=== PATIENT | female | born 1960 | race Caucasian/White ===

== ENCOUNTER 2018-01-26 15:04 | Observation (INO) | payer OTHER ==
[2018-01-26 15:13] VITALS: BMI 48.1
--- NOTE | 2018-01-26 15:38 | PDOC ---
History of Present Illness - General Chief Complaint: CVA/TIA Stated Complaint: TIA/CVA Time Seen by Provider: 01/26/18 15:21 - History of Present Illness Initial Comments: 01/26/18 15:33 57 yo F with h/o HTN, HLD, DM, COPD, Gout, Endometrial ca. s/p total hysterectomy 12/2017 who p/w lightheadedness, and slurred speech. Patient referred to ED by provider Heidi Lynn MD from Urgent Care. Patient and patient at bedside report waking up this AM (01/26/18) at approximately 0800 AM with slurred speech and slight left sided facial droop. Patient also endorses "swelling of lower part of face (now resolved)," but denies dysphagia, tongue swelling, rash, vision change, hoarseness, odynophagia. Patient also endorses word finding difficulty this morning,and "head fogginess," now slightly improved. + Dull posterior HART x 24 hours, with slight improvement. Consistent with prior HART's. No identifiable triggers or alleviators. Last known well 01/25/18 ( 1000 PM). BS~116 this AM at 0830. Patient denies N/V, F,C, CP, SOB, urinary complaints, abdominal pain, diarrhea, constipation, lightheadedness, weakness, sensory changes. PMHx: as noted above. Denies h/o CVA/TIA. Denies h/o ACS/CA. Denies AC. ROS: as noted SHx: Denies smoking/tobacco history, IVDA. Allergies: Montelukast, Pramiprexole,Topirimate, Naldecon Past History - Past Medical History Allergies/Adverse Reactions: Allergies Allergy/AdvReac Type Severity Reaction Status Date / Time montelukast sodium Allergy Mild Itching Verified 01/26/18 15:09 [From Singulair] pramipexole [From Mirapex] Allergy Verified 01/26/18 15:10 topiramate [From Topamax] AdvReac Verified 01/26/18 15:10 NALDECON AdvReac Mild NOSE BLEEDS Uncoded 01/26/18 15:09 Home Medications: Ambulatory Orders Lidocaine [Lidoderm] 2 patch TP DAILY PRN 12/24/12 Salmeterol/Fluticasone [Advair 500Mcg/50Mcg -] 1 inh IH BID 12/24/12 Glucosamine HCl/Chondro Duarte A [Glucosamine Chondroitin Cap] 1 tab PO TID Tiotropium [place] [Spiriva -] 1 inh PO DAILY 12/26/12 Albuterol Sulfate [Proventil HFA Inhaler -] 1 - 2 inh PO TID PRN 03/09/15 Amlodipine Besylate 5 mg PO DAILY 03/09/15 Calcium Carb/Vitamin D3/Vit K1 [Calcium + D Soft Chewable Tab] 1 each PO DAILY 03/09/15 Colchicine 0.6 mg PO BID 03/09/15 Estraval PO ASDIR 03/11/15 Amitriptyline HCl [Elavil -] 50 mg PO HS 01/26/18 Doxazosin Mesylate [Cardura -] 4 mg PO DAILY 01/26/18 Theophylline Anhydrous [Ronal-24] 0.5 tab PO DAILY 01/26/18 Anemia: No Asthma: Yes Cancer: No Cardiac Disorders: Yes (MVP) CVA: No COPD: No CHF: No Dementia: No Diabetes: Yes (STATES "YES", ON DIET CONTROLLED) GI Disorders: Yes (GERD 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 No weakness. HEAD, EYES, EARS, NOSE AND THROAT: No change in vision. No ear pain or discharge. No sore throat. CARDIOVASCULAR: No chest pain or shortness of breath RESPIRATORY: No cough, wheezing, or hemoptysis. GASTROINTESTINAL: No nausea, vomiting, diarrhea or constipation. GENITOURINARY: No dysuria, frequency, or change in urination. MUSCULOSKELETAL: No joint or muscle swelling or pain. No neck or back pain. SKIN: No rash NEUROLOGIC: + Slurred speech, headache. No vertigo, loss of consciousness, or change in strength/sensation. ENDOCRINE: No increased thirst. No abnormal weight change HEMATOLOGIC/LYMPHATIC: No anemia, easy bleeding, or history of blood clots. ALLERGIC/IMMUNOLOGIC: No hives or skin allergy. *Physical Exam - Vital Signs Last Vital Signs Temp Pulse Resp BP Pulse Ox 97.8 F 96 H 20 153/95 99 01/26/18 15:12 01/26/18 15:12 01/26/18 15:12 01/26/18 15:12 01/26/18 15:12 - Physical Exam Comments: 01/26/18 15:38 GENERAL: Awake, alert, and fully oriented, in no acute distress HEAD: No signs of trauma, normocephalic, atraumatic EYES: PERRLA, EOMI, sclera anicteric, conjunctiva clear ENT: + Left lateral oral commisure depression. Auricles normal inspection, hearing grossly normal, nares patent, oropharynx clear without exudates. Moist mucosa NECK: Normal ROM, supple, no lymphadenopathy, JVD, or masses LUNGS: No distress, speaks full sentences, clear to auscultation bilaterally HEART: Regular rate and rhythm, normal S1 and S2, no murmurs, rubs or gallops, peripheral pulses normal and equal bilaterally. ABDOMEN: Soft, nontender, normoactive bowel sounds. No guarding, no rebound. No masses EXTREMITIES : Normal inspection, Normal range of motion, no edema. No clubbing or cyanosis. NEUROLOGICAL: Cranial nerves II through XII grossly intact. Normal speech, no focal sensorimotor deficits. SKIN: Warm, Dry, normal turgor, no rashes or lesions noted NIH Stroke Scale - Last Known Well Date/Time & Onset Date Last Known Well: 01/25/18 Time Last Known Well: 10:00 - Initial Evaluation Level of consciousness: Alert Ask patient the month and their age: Answers both correctly Ask patient to open & close eyes; make fist and let go: Obeys both correctly Best gaze (horizontal eye movement): Normal Visual field testing: No visual field loss Facial paresis (Show teeth/raise eyebrows/close eyes tight): Normal symmetrical movement Motor Function: Left Arm: Normal Motor Function: Right Arm: Normal (extends arm 90 (or 45) degrees for 10 seconds without drift Motor Function: Left Leg: Normal (extends leg 30 degrees for 5 seconds without drift) Motor Function: Right Leg: Normal (extends leg 30 degrees for 5 seconds without drift) Limb Ataxia: No ataxia Sensory(Use pinprick test arms,legs,trunk,face/side to side): Normal Best language (Describe picture, name items, read sentences): No Aphasia Dysarthria (read several words): Normal articulation Extinction and Inattention: No abnormality - Total Score NIH Stroke Scale Score: 0 tPA Exclusion checklist 3-4.5h - Time Elapsed Date last known well: 01/25/18 Time last known well: 10:00 Elaspsed time: 1 Day(s) and 8 Hour(s) and 43 Minutes - Thrombolytic Therapy Candidate Is patient eligible for thrombolytic therapy: No - Exclusion Criteria 3-4.5 hr SBP greater than 185 or DBP greater than 110mmHg despite tx: No Recent IC/spinal surgery,head trauma or stroke<3mos.: No Hx IC hemorrhage, IC neoplasm, AV malformation or aneurysm: No Active internal bleeding: No Blding diathesis(low plt ct, inc PTT,INR>1.7 or use of NOAC): No Symptoms suggest subarachnoid hemorrhage: No CT demonstrates multilobar infarct(>1/3 cerebral hemiphere): No Arterial puncture at noncompressible site in previous 7 days: No Blood glucose concentration less than 50mg/dL (2.7mmol/L): No - Relative Exclusion Criteria 3-4.5 hr Life expectancy <1 yr or severe co-morbid illness: No : No Patient/family refused: No Rapid improvement: Yes Stroke severity too mild: Yes Recent acute CA (w/in previous 3 months): No Seizure at onset with postictal residual neuro impairments: No Major surgery or serious trauma w/in previous 14 days: No Recent GI or hemorrhage (w/in previous 21 days): No - Add'l Relative Exclusion 3-4.5 hr Age > 80: No Hx of both diabetes AND prior ischemic stroke: No Taking an oral anticoagulant regardless of INR: No NIHSS >25: No - Ineligibility reason(s) Reasons No tPA given: Outside of window - delayed arrival Critical Care Time/[facility] Note - Medical Decision Making Note: 01/26/18 16:07 57 yo F with h/o HTN, HLD, DM, COPD, Gout, Endometrial ca. s/p total hysterectomy 12/2017 who p/w lightheadedness, and slurred speech. VSS, AF, A& OX3. Slight left oral lateral comissure droop. Neurologic exam otherwise intact. NIHSS~ 0. Outside TpA window. Will evaluate for possible CVA vs.TIA. Will assess for hypoglycemia, electrolyte abnml, metabolic and toxic derangements, acid-base disturbances, infection. ED Course: Stroke Set: CBC, CMP, TG, LA, PT/INR, T&S CTH EKG, CXR 01/26/18 16:39 EKG: NSR with absent SHAHID, STD. Q waves lead V1, V2. Normal axis and interval duration Contacted Neurology answering service. Dr. Hutson. Awaiting call back 01/26/18 16:52 CBC,CMP: Unremarkable UA: Neg Glu~108 01/26/18 17:[address] Hutson, MRI, Carotid dopplers, admit. 01/26/18 18:04 CTH: No acute pathology 01/26/18 18:29 Microblogged [facility] x 2 Patient pending admission stroke/obs. Patient stable 01/26/18 18:[address] endorsed to Medicine Dr[address] Menard. Admit to stroke/obs *DC/Admit/Observation/Transfer Diagnosis at time of Disposition: TIA (transient ischemic attack), Slurred speech - Discharge Dispostion Condition at time of disposition: Stable Decision to Admit order: Yes - Referrals - Patient Instructions Additional Instructions: Please return to the emergency department with any new or worsening symptoms or concerns. Please follow up with your primary care physician within 72 hours. - Post Discharge Activity - Attestations Physician Attestion: 01/26/18 15:39 I attest to the information provided in this note.
[2018-01-26] MEDS: SODIUM CHLORIDE 1,000 ML IV SCH (15:51)
[2018-01-26 16:13] LABS: BASO % 0.4 % (0-2.0); EOS % 2.9 % (0-4.5); HEMATOCRIT 42.2 % (32.4-45.2); HEMOGLOBIN 14.6 GM/dL (10.7-15.3); LYMPH % 29.6 % (8-40); MCH 30.2 pg (25.7-33.7); MCHC 34.7 g/dl (32.0-36.0); MEAN PLT VOLUME 8.5 fl (7.5-11.1); MONO % 7.8 % (3.8-10.2); NEUT % 59.3 % (42.8-82.8); PLATELET COUNT 339 K/MM3 (134-434); RBC 4.86 M/mm3 (3.60-5.2); RDW 14.1 % (11.6-15.6); WHITE BLOOD COUNT 8.7 K/mm3 (4.0-10.0)
[2018-01-26 16:29] LABS: INR 0.87 (0.83-1.09); PROTHROMBIN TIME (PATIENT) 10.2 SEC (9.7-13.0)
[2018-01-26 16:32] LABS: URINE APPEARANCE CLEAR; URINE BILIRUBIN NEGATIVE (<2.0 mg/dL); URINE COLOR LTYELLOW; URINE GLUCOSE (UA) NEGATIVE (NEGATIVE); URINE KETONE NEGATIVE (NEGATIVE); URINE LEUK ESTERASE NEGATIVE (NEGATIVE); URINE NITRITE NEGATIVE (NEGATIVE); URINE PROTEIN NEGATIVE (NEGATIVE); URINE UROBILINOGEN NEGATIVE mg/dL (0.2-1.0)
[2018-01-26 16:41] LABS: ALBUMIN 4.3 g/dl (3.4-5.0); ALK PHOS 103 U/L (45-117); ANION GAP 8 MMOL/L (8-16); BILIRUBIN,TOTAL 0.3 mg/dL (0.2-1); BLOOD UREA NITROGEN 17 mg/dL (7-18); CALCIUM 9.4 mg/dL (8.5-10.1); CHLORIDE 102 mmol/L (98-107); CHOLESTEROL 210 mg/dL (50-200); CO2 28 mmol/L (21-32); GLUCOSE,RANDOM 108 mg/dL (74-106); HDL CHOLESTEROL 67 mg/dL (40-60); POTASSIUM 3.9 mmol/L (3.5-5.1); SGOT/AST 16 U/L (15-37); SGPT/ALT 27 U/L (13-61); SODIUM 138 mmol/L (136-145); TOT PROT 7.9 g/dl (6.4-8.2); TRIGLYCERIDES 192 mg/dL (0-150)
--- NOTE | 2018-01-26 17:54 | PDOC ---
Attending Attestation - Resident Resident Name: Kimani Benjamin - ED Attending Attestation I have performed the following: I have examined & evaluated the patient, The case was reviewed & discussed with the resident, I agree w/resident's findings & plan, Exceptions are as noted - HPI HPI: 01/26/18 17:51 57 yo F with h/o HTN, HLD, DM, COPD, Gout, Endometrial ca. s/p total hysterectomy 12/2017 presenting with L facial droop and slurred speech upon awakening today. Pt was in [facility] last night going to bed. This morning, pt found her L face drooped and "feeling swollen". Pt also reports word finding difficulty and slurred speech. Her symptoms gradually subsided and resolved by the time pt came to ED. Pt now with no complaints other than "feeling foggy". - Physicial Exam PE: 01/26/18 17:53 "GENERAL: Awake, alert, and fully oriented, in no acute distress. HEAD: No signs of trauma EYES: PERRLA, EOMI, sclera anicteric, conjunctiva clear ENT: Auricles normal inspection, hearing grossly normal, nares patent, oropharynx clear without exudates. Moist mucosa NECK: Nontender, no stepoffs, Normal ROM, supple, no lymphadenopathy, JVD, or masses LUNGS: Breath sounds equal, clear to auscultation bilaterally. No wheezes, and no crackles HEART: Regular rate and rhythm, normal S1 and S2, no murmurs, rubs or gallops ABDOMEN: Soft, nontender, normoactive bowel sounds. No guarding, no rebound. No masses EXTREMITIES: Normal range of motion, no edema. No clubbing or cyanosis. No cords, erythema, or tenderness NEUROLOGICAL: Cranial nerves II through XII intact. 5/5 strength and sensation in all extremities, Normal speech, normal gait, normal cerebellar function SKIN: Warm, Dry, normal turgor, no rashes or lesions noted. - Medical Decision Making 01/26/18 17:54 57 F with L facial droop and slurred speech today, now resolved. Pt with no deficits on exam currently. Possible TIA. - Labs - CT head - Neuro c/s NIH Stroke Scale - Last Known Well Date/Time & Onset Date Last Known Well: 01/25/18 Time Last Known Well: 22:00 - Initial Evaluation Level of consciousness: Alert Ask patient the month and their age: Answers both correctly Ask patient to open & close eyes; make fist and let go: Obeys both correctly Best gaze (horizontal eye movement): Normal Visual field testing: No visual field loss Facial paresis (Show teeth/raise eyebrows/close eyes tight): Normal symmetrical movement Motor Function: Left Arm: Normal Motor Function: Right Arm: Normal (extends arm 90 (or 45) degrees for 10 seconds without drift Motor Function: Left Leg: Normal (extends leg 30 degrees for 5 seconds without drift) Motor Function: Right Leg: Normal (extends leg 30 degrees for 5 seconds without drift) Limb Ataxia: No ataxia Sensory(Use pinprick test arms,legs,trunk,face/side to side): Normal Best language (Describe picture, name items, read sentences): No Aphasia Dysarthria (read several words): Normal articulation Extinction and Inattention: No abnormality - Total Score NIH Stroke Scale Score: 0
--- NOTE | 2018-01-26 19:18 | PN ---
Teaching Attending Note Name of Resident: Mackenzie Holland ATTENDING PHYSICIAN STATEMENT I saw and evaluated the patient. I reviewed the resident's note and discussed the case with the resident. I agree with the resident's findings and plan as documented. SUBJECTIVE: Patient is a 57 year old woman with history of HTN, HLD, diet-controlled DM, COPD, Gout and Endometrial cancer (s/p total hysterectomy 12/2017) who presents with lightheadedness and slurred speech. Patient referred to ER by provider Heidi Lynn MD from Urgent Care. Patient reports waking up this AM (01/26/18 ) at approximately 0800 AM with slurred speech and slight left sided facial droop. Patient also has "swelling of lower part of face (now resolved)," but denies dysphagia, tongue swelling, rash, vision change, hoarseness, odynophagia. Patient also had word finding difficulty this morning,and "head fogginess," now slightly improved. Has dull posterior headache x 24 hours, with slight improvement. Consistent with prior HART's. No identifiable triggers or alleviators. Last known well 01/25/18 (1000 PM). BS~116 this AM at 0830. OBJECTIVE: Alert Vital Signs Period Temp Pulse Resp BP Sys/Rodgers Pulse Ox Last 24 Hr 97.8 F 96 20 153/95 98-99 HEENT: No Jaundice, eye redness or discharge, PERRLA, EOMI. Left facial droop. Normocephalic, atraumatic. External ears are normal and hearing is grossly intact. No nasal discharge. Neck: Supple, nontender. No palpable adenopathy or thyromegaly. No JVD Chest: Good effort. Clear to auscultation and percussion. Heart: Regular. No S3, rub or murmur Abdomen: Not distended, soft, nontender and no HSM. No rebound or guarding. Normoactive bowel sounds. Ext: Peripheral pulses intact. No leg edema. Skin: Warm and dry. No petechiae, rash or ecchymosis. Neuro: Alert. Oriented x3. CN 2-12 grossly intact. Left facial droop. Unsteady gait (patient says its chronic - uses 2 canes to ambulate at home). Sensation grossly intact in all four extremities and DTR are symmetric. Current Medications Generic Name Dose Route Start Last Admin Trade Name Freq PRN Reason Stop Dose Admin Sodium Chloride 1,000 mls @ 42 mls/hr 01/26/18 15:45 01/26/18 15:51 Normal Saline - IV 42 mls/hr ASDIR KASSIE Administration Home Medications Medication Instructions Recorded Lidocaine [Lidoderm] 2 patch TP DAILY PRN 12/24/12 Salmeterol/Fluticasone [Advair 1 inh IH BID 12/24/12 500Mcg/50Mcg -] Glucosamine HCl/Chondro Duarte A 1 tab PO TID 12/26/12 [Glucosamine Chondroitin Cap] Tiotropium [place] [Spiriva -] 1 inh PO DAILY 12/26/12 Albuterol Sulfate [Proventil HFA 1 - 2 inh PO TID PRN 03/09/15 Inhaler -] Amlodipine Besylate 5 mg PO DAILY 03/09/15 Calcium Carb/Vitamin D3/Vit K1 1 each PO DAILY 03/09/15 [Calcium + D Soft Chewable Tab] Colchicine 0.6 mg PO BID 03/09/15 Amitriptyline HCl [Elavil -] 50 mg PO HS 01/26/18 Doxazosin Mesylate [Cardura -] 4 mg PO DAILY 01/26/18 Theophylline Anhydrous [Ronal-24] 0.5 tab PO DAILY 01/26/18 Abnormal Lab Results 01/26/18 15:44 Random Glucose 108 H Triglycerides 192 H Cholesterol 210 H Total LDL Cholesterol 120 H HDL Cholesterol 67 H ASSESSMENT AND PLAN: 1. TIA/? CVA - Head CT scan does not show any acute CVA. She is outside the window for TPa. Will get MRI with contrast, carotid doppler and ECHO. EKG shows NSR. Will get speech/swallow evaluation, implement fall and aspiration precuations, neurochecks, admit to telemetry and PT/Neurology consults. Will give Lipitor and Aspirin. Unclear why she stopped taking her statin drug. Adopt permissive hypertension and check uric acid level. 2. Diet controlled DM - Will check HbA1c and implement sliding scale insulin regimen. Provide comprehensive diabetes care with patient teaching and counseling about the importance of euglycemia, eye care and foot care. 3. Obesity - Will provide patient all the necessary assistance , counseling and positive reinforcement to facilitate weight loss. Consult credit cashier. 4. DVT prophylaxis - Lovenox 40 mg SQ q 12 hours. 5. Advance directives - Full code
[2018-01-26] MEDS ORDERED: ASPIRIN 325 MG TABLET ONE (20:52)
--- NOTE | 2018-01-26 21:07 | HP ---
CHIEF COMPLAINT: "Not feeling like myself" [facility] Pulm: Isabelle ([facility]) Cardio: Ismael ([facility]) Oncologist: Igor Richardson ([facility]) Hvac Designer: Corby ([facility]) HISTORY OF PRESENT ILLNESS: 57 y/o F with PMHx of HTN, HLD, DM, COPD, Asthma, Gout, MVP, GERD, Fibromyalgia , Sciatica, Endometrial Cancer presents to [facility] from Urgent Care after experiencing Slurred Speech. Patient experienced a headache throughtout the day yesterday (01/25) that she said was similar to her Cluster Migraines. She described this headache as a 5/10, dull ache that did not radiate anywhere and worsened with Light. Patient tried Tylenol and went about her day. This morning , patient video chatted with her brother who noticed her face was swollen and some slurred speech. Patient says all day today she did not feel right, and felt she was doing everything in slow motion. At 1pm today (01/26), Patients also noticed the slurred speech and convinced patient to visit the Urgent care. At 3pm, the Urgent care physician (Heidi Lynn MD) noticed a facial droop and suggested she visit the ED. Patient has a hx of numbness and tingling she says is due to multiple herniated discs + diabetic neuropathy. She also endorses multiple falls due to an unsteady gait however denies any recent head trauma. Denies any recent fevers, chills, chest pain, SOB, nausea, vomiting, diarrhea, constipatin. ER course was notable for: (1) Neurology Consult (2) CT Head, EKG (3) NIHSS: 0 Recent Travel: Denies PAST MEDICAL HISTORY: HTN, HLD, DM (Diet controlled) COPD, Asthma, Gout, MVP, GERD, Fibromyalgia, Sciatica, Endometrial Cancer, Cluster Migraines PAST SURGICAL HISTORY: Endometrial Cancer s/p Total Hysterectomy (12/2017) Rotator Cuff (03/19) Torn R Meniscus (12/14) () Social History: Smoking: Denies Alcohol: Denies Drugs: Denies Occupation: None Residence: Home with Ambulation: Canes b/l Family History: Mother: Multiple TIAs, Breast Ca + Double Mastectomy, Lung Ca, CHF Father: Dementia, HTN Allergies montelukast sodium [From Singulair] Allergy (Mild, Verified 01/26/18 15:09) Itching pramipexole [From Mirapex] Allergy (Verified 01/26/18 15:10) topiramate [From Topamax] Adverse Reaction (Verified 01/26/18 15:10) NALDECON Adverse Reaction (Mild, Uncoded 01/26/18 15:09) NOSE BLEEDS HOME MEDICATIONS: Salmeterol/Fluticasone [Advair 500Mcg/50Mcg -] 1 inh IH BID 12/24/12 Tiotropium [place] [Spiriva -] 1 inh PO DAILY 12/26/12 Amlodipine Besylate 10 mg PO DAILY 03/09/15 Colchicine 0.6 mg PO BID 03/09/15 Amitriptyline HCl [Elavil -] 50 mg PO HS 01/26/18 Diclofenac Sodium 100 gm TP PRN PRN 01/26/18 Doxazosin Mesylate [Cardura -] 2 mg PO DAILY 01/26/18 Multivitamins [Tab-A-Vit -] 1 tab PO DAILY 01/26/18 Nitroglycerin [Nitrostat] 0.4 mg SL PRN PRN 01/26/18 Theophylline Anhydrous [Ronal-24] 0.5 tab PO BID 01/26/18 REVIEW OF SYSTEMS As per HPI PHYSICAL EXAMINATION Vital Signs - 24 hr 01/26/18 01/26/18 15:12 15:40 Temperature 97.8 F Pulse Rate 96 H Respiratory 20 Rate Blood Pressure 153/95 O2 Sat by Pulse 99 98 Oximetry (%) GENERAL: A&Ox3, NAD, sitting with HOB elevated HEAD: NCAT EYES: PERRL, EOMI, Wearing glasses EARS, NOSE, THROAT: Oropharynx clear without exudates. MMM NECK: No JVD LUNGS: CTAB, No wheezes and no crackles HEART: Regular rate and rhythm, normal S1 and S2 without murmur ABDOMEN: Obese, Soft, Tender to palpation in LUQ, not distended, + bowel sounds , 5 healing incision wounds in the mid-abdomen without active bleeding/drainage. UPPER EXTREMITIES: 2+ pulses, Scratch enamorado over the Left Medial Forearm (From [place]) LOWER EXTREMITIES: 2+ pulses, 1+ Nonpitting edema. NEUROLOGICAL: Cranial nerves II-XII intact however slight Left Facial droop. Normal speech. C5-T1 and L4-S1 gross sensation intact. 4/5 muscle strength to handgrip, Elbow flexion/extension, shoulder abduction, Hip Flexion, Knee flexion /extension, Plantarflexion, dorsiflexion. Slow but Unsteady gait. Able to perform rapid alternating hand movements, Heel to hong, and Finger to nose. PSYCHIATRIC: Cooperative. Good eye contact. Appropriate mood and affect. SKIN: Warm, dry Laboratory Results - last 24 hr 01/26/18 01/26/18 01/26/18 15:44 15:44 15:44 WBC 8.7 RBC 4.86 Hgb 14.6 Hct 42.2 MCV 87.0 MCH 30.2 MCHC 34.7 RDW 14.1 Plt Count 339 MPV 8.5 Absolute Neuts (auto) 5.2 Neutrophils % 59.3 Lymphocytes % 29.6 Monocytes % 7.8 Eosinophils % 2.9 Basophils % 0.4 Nucleated RBC % 0 PT with INR 10.20 INR 0.87 Sodium 138 Potassium 3.9 Chloride 102 Carbon Dioxide 28 Anion Gap 8 BUN 17 Creatinine 1.0 Creat Clearance w eGFR 57.15 Random Glucose 108 H Calcium 9.4 Total Bilirubin 0.3 AST 16 ALT 27 Alkaline Phosphatase 103 Creatine Kinase 78 Troponin I < 0.02 Total Protein 7.9 Albumin 4.3 Triglycerides 192 H Cholesterol 210 H Total LDL Cholesterol 120 H HDL Cholesterol 67 H Urine Color Urine Appearance Urine pH Ur Specific [place] Urine Protein Urine Glucose (UA) Urine Ketones Urine Blood Urine Nitrite Urine Bilirubin Urine Urobilinogen Ur Leukocyte Esterase Blood Type Antibody Screen 01/26/18 01/26/18 15:44 16:20 WBC RBC Hgb Hct MCV MCH MCHC RDW Plt Count MPV Absolute Neuts (auto) Neutrophils % Lymphocytes % Monocytes % Eosinophils % Basophils % Nucleated RBC % PT with INR INR Sodium Potassium Chloride Carbon Dioxide Anion Gap BUN Creatinine Creat Clearance w eGFR Random Glucose Calcium Total Bilirubin AST ALT Alkaline Phosphatase Creatine Kinase Troponin I Total Protein Albumin Triglycerides Cholesterol Total LDL Cholesterol HDL Cholesterol Urine Color Ltyellow Urine Appearance Clear Urine pH 6.0 Ur Specific Mobile 1.014 Urine Protein Negative Urine Glucose (UA) Negative Urine Ketones Negative Urine Blood Negative Urine Nitrite Negative Urine Bilirubin Negative Urine Urobilinogen Negative Ur Leukocyte Esterase Negative Blood Type A POSITIVE Antibody Screen Negative Active Medications Aspirin (Ecotrin -) 325 mg PO DAILY [facility] Last Admin: 01/26/18 21:20 Dose: 325 mg Enoxaparin Sodium (Lovenox -) 40 mg SQ DAILY [facility] Sodium Chloride (Normal Saline -) 1,000 mls @ 42 mls/hr IV ASDIR [facility] Last Admin: 01/26/18 15:51 Dose: 42 mls/hr Insulin Aspart (Novolog Vial Sliding Scale -) 1 vial SQ ACHS [facility]; Protocol Rosuvastatin Calcium (Crestor -) 40 mg PO HS [facility] Last Admin: 01/26/18 21:20 Dose: 40 mg ASSESSMENT/PLAN: 57 y/o F with PMHx of HTN, DM, COPD, MVP, Fibromyalgia, Endometrial Cancer presents to [facility] after experiencing Slurred Speech, Left sided facial droop and will be observed on Tele-Obs. #R/O TIA -Outside window for tPA -Head CT pending official Read -ECHO, Carotid Doppler, MRI Brain with contrast ordered -Neurology (Dr. Hutson) consulted by ED -Speech and Swallow consulted -ASA 325mg -Crestor 40mg HS -HOB Elevated -Neurochecks Q2H -Fall precautions -Dysphagia precautions #HTN -Hold Home dose Amlodipine, Doxazosin, Nitro -Will allow permissive HTN at this time #HLD -Lipid panel noted above -Crestor #DM -Patient mentions Diet controlled at home -Will Monitor with BGMs ISS ACHS for now, Can d/c if BG at goal #COPD -Stable -Home dose Advair, Spiriva, Ronal-24 #Gout -Stable -Home dose Colchicine #Fibromyalgia -Home dose Amitriptyline #FEN -PO Fluids -Lytes wnl -NPO pending speech and swallow eval #PPx -DVT: Lovenox Dispo: Tele-Obs; Meds have been reconciled Visit type - Emergency Visit Emergency Visit: Yes ED Registration Date: 01/26/18 Care time: The patient presented to the Emergency Department on the above date and was hospitalized for further evaluation of their emergent condition. - New Patient This patient is new to me today: Yes Date on this admission: 01/27/18 - Critical Care Critical Care patient: No
[2018-01-26] MEDS: ASPIRIN 325 MG ENTERIC COATED TABLET (FP) PO SCH (21:20)
[2018-01-26] MEDS: ROSUVASTATIN CA 20 MG TABLET (FP) PO SCH (21:20)
[2018-01-26] MEDS ORDERED: ROSUVASTATIN CA 40 MG TABLET PO SCH (22:00)
[2018-01-26] MEDS ORDERED: THEOPHYLLINE ANHYDROUS PO SCH (22:00)
[2018-01-26] MEDS ORDERED: COLCHICINE 0.6 MG TABLET (FP) ONE (23:03)
[2018-01-26] MEDS: COLCHICINE 0.6 MG TABLET (FP) PO SCH (23:05)
[2018-01-26] MEDS: AMITRIPTYLINE HCL 25 MG TABLET (FP) PO SCH (23:05)
[2018-01-26] MEDS: INSULIN SLIDING SCALE (NOVOLOG) 1 VIAL SQ SCH (23:12)
[2018-01-27 06:39] LABS: BASO % 0.6 % (0-2.0); EOS % 3.6 % (0-4.5); HEMATOCRIT 40.6 % (32.4-45.2); HEMOGLOBIN 13.4 GM/dL (10.7-15.3); LYMPH % 41.4 % (8-40); MCH 28.7 pg (25.7-33.7); MCHC 32.9 g/dl (32.0-36.0); MEAN CELL VOLUME 87.3 fl (80-96); MEAN PLT VOLUME 8.3 fl (7.5-11.1); MONO % 8.2 % (3.8-10.2); NEUT % 46.2 % (42.8-82.8); PLATELET COUNT 279 K/MM3 (134-434); RBC 4.66 M/mm3 (3.60-5.2); RDW 14.4 % (11.6-15.6); WHITE BLOOD COUNT 6.6 K/mm3 (4.0-10.0)
[2018-01-27 07:49] LABS: ALBUMIN 3.4 g/dl (3.4-5.0); ALK PHOS 85 U/L (45-117); ANION GAP 9 MMOL/L (8-16); BILIRUBIN,TOTAL 0.6 mg/dL (0.2-1); BLOOD UREA NITROGEN 13 mg/dL (7-18); CALCIUM 8.6 mg/dL (8.5-10.1); CHLORIDE 108 mmol/L (98-107); CO2 26 mmol/L (21-32); CREATININE 0.9 mg/dL (0.55-1.3); GLUCOSE,RANDOM 97 mg/dL (74-106); MAGNESIUM 2.4 mg/dL (1.8-2.4); PHOSPHOROUS 4.6 mg/dL (2.5-4.9); POTASSIUM 3.8 mmol/L (3.5-5.1); SGOT/AST 15 U/L (15-37); SGPT/ALT 23 U/L (13-61); SODIUM 143 mmol/L (136-145); TOT PROT 6.4 g/dl (6.4-8.2)
[2018-01-27] MEDS: INSULIN SLIDING SCALE (NOVOLOG) 1 VIAL SQ SCH ×4 (07:59→21:58)
[2018-01-27] MEDS ORDERED: PT OWN MED DRAWER 7, Y5N ONE ×3 (09:53→22:37)
[2018-01-27] MEDS: BUDESONIDE/FORMETEROL FUMARATE 160/4.5 mcg INHALER IH SCH ×3 (10:07→21:58)
[2018-01-27] MEDS: TIOTROPIUM BROMIDE 2.5 MCG (SPIRIVA) RESPIMAT INHALER IH SCH (10:09)
[2018-01-27] MEDS: ASPIRIN 325 MG ENTERIC COATED TABLET (FP) PO SCH (10:12)
[2018-01-27] MEDS: MULTIVITAMINS (DAILY MVI) TABLET (FP) PO SCH (10:12)
[2018-01-27] MEDS: ENOXAPARIN NA (PORCINE) 40 MG/0.4 ML DISP.SYRIN SQ SCH (10:12)
[2018-01-27] MEDS: COLCHICINE 0.6 MG TABLET (FP) PO SCH ×2 (10:12→21:58)
--- NOTE | 2018-01-27 10:56 | EKG ---
Test Reason : Blood Pressure : / mmHG Vent. Rate : 090 BPM Atrial Rate : 090 BPM P-R Int : 182 ms QRS Dur : 090 ms QT Int : 356 ms P-R-T Axes : 044 035 054 degrees QTc Int : 435 ms NORMAL SINUS RHYTHM SEPTAL INFARCT , AGE UNDETERMINED ABNORMAL ECG NO PREVIOUS ECGS AVAILABLE Confirmed by FANTA REYES MD ([id number]) on 01/27/2018 10:56:24 AM Referred By: Confirmed By:FANTA REYES MD
--- NOTE | 2018-01-27 12:30 | ECHO ---
Name: KATIE LUCERO, TACHO Exam:Adult Echocardiogram Study Date: 01/27/2018 11:43 AM Age: 57 yrs Reason For Study: ALEJANDRO/OLIVIER Height: 62 in Weight: 263 lb BSA: 2.1 m2 MMode/2D Measurements & Calculations IVSd: 0.83 cm LA dimension: 3.0 cm LVIDd: 4.6 cm LVIDs: 3.3 cm LVPWd: 0.77 cm EDV(Teich): 99.2 ml ESV(Teich): 44.1 ml Doppler Measurements & Calculations MV E max deangelo: 5.6 cm/sec MV A max deangelo: 5.4 cm/sec MV E/A: 1.0 MV dec time: 0.20 sec Procedure A complete two-dimensional transthoracic echocardiogram was performed (2D, M-mode, Doppler and color flow Doppler). Technically limited study. Left Ventricle The left ventricle is normal in size. Left ventricular systolic function is normal. Ejection Fraction = 60- 65%. No regional wall motion abnormalities noted. Right Ventricle The right ventricle is not well visualized. Atria The left atrial size is normal. Right atrial size is normal. Mitral Valve The mitral valve is normal in structure and function. There is trace to mild mitral regurgitation. Tricuspid Valve The tricuspid valve is normal in structure and function. No tricuspid regurgitation. Aortic Valve The aortic valve is normal in structure and function. No aortic regurgitation is present. Pulmonic Valve The pulmonic valve is not well visualized. Great Vessels The aortic root is normal size. Pericardium/Pleura There is no pericardial effusion. Interpretation Summary Technically limited study The left ventricle is normal in size. Left ventricular systolic function is normal. No regional wall motion abnormalities noted. Ejection Fraction = 60-65%. The right ventricle is not well visualized. The left atrial size is normal. Right atrial size is normal. There is trace to mild mitral regurgitation. There is no pericardial effusion. Previous study is not available for comparison Luis Manuel Santos MD 01/27/2018 12:30 PM
--- NOTE | 2018-01-27 13:54 | CONSULT ---
Admitting History and Physical - Primary Care Physician PCP: Abby Hogan - Admission History of Present Illness: Per EMR: HISTORY OF PRESENT ILLNESS: 57 y/o F with PMHx of HTN, HLD, DM, COPD, Asthma, Gout, MVP, GERD, Fibromyalgia , Sciatica, Endometrial Cancer presents to [facility] from Urgent Care after experiencing Slurred Speech. Patient experienced a headache throughtout the day yesterday (01/25) that she said was similar to her Cluster Migraines. She described this headache as a 5/10, dull ache that did not radiate anywhere and worsened with Light. Patient tried Tylenol and went about her day. This morning , patient video chatted with her brother who noticed her face was swollen and some slurred speech. Patient says all day today she did not feel right, and felt she was doing everything in slow motion. At 1pm today (01/26), Patients also noticed the slurred speech and convinced patient to visit the Urgent care. At 3pm, the Urgent care physician (Heidi Lynn MD) noticed a facial droop and suggested she visit the ED. Patient has a hx of numbness and tingling she says is due to multiple herniated discs + diabetic neuropathy. She also endorses multiple falls due to an unsteady gait however denies any recent head trauma. Denies any recent fevers, chills, chest pain, SOB, nausea, vomiting, diarrhea, constipatin. Head CT/ Carotid u/s (-) Selected Entries 01/27/18 01/27/18 01/27/18 00:32 04:00 08:00 Lunch Temperature 98.3 F 98.1 F 97.5 F L 01/27/18 13:28 Lunch 100% Temperature Laboratory Tests 01/27/18 06:00 WBC 6.6 Pt reports feeling "more scattered" recently. A lot of stress in her life, medically, financially, and 9 deaths in her family. History Source: Patient, Medical Record Limitations to Obtaining History: No Limitations - Smoking History Smoking history: Never smoked Have you smoked in the past 12 months: No - Alcohol/Substance Use Hx Alcohol Use: No History - Admission Reason For Visit: SLURRED VISION,TRANSIENT ISCHEMIC ATTACK - Diagnostics X-ray: Report Reviewed CT Scan: Report Reviewed MRI: Pending - General Mental Status: Alert and Oriented, Awake and Alert, Able to Follow Commands Attention: Distractible, Mild Impairment Ability to Follow Directions: Excellent (when attending, follows 2 stage complex commands. But doesnt always focus, and asks for repetition.) Head/Neck Control: WFL - Hearing Hearing: Functional Hearing Aide: No With Patient: No Speech Evaluation - Communication Primary Language: TURKMEN Communication: Yes: Within Normal Limits Oral Expression Ability: Yes: No Impairment - Speech Production Able to Make Needs Known: Yes: WNL Intelligibility: Yes: WNL - Speech Characteristics Voice Loudness: Normal Voice Pitch: Yes: Normal Voice Phonatory-based Quality: Yes: Normal Speech Pattern: Normal Speech Clarity: < 100% Nasal Resonance: Normal Articulation: Yes: Precise (slight imprecision? Left facial. Tongue maybe slight deviation to left?) Rate of Speech: Intact - Language/Auditory Comprehension Follows: Yes: Complex Commands Observation: Able to respond to yes/no queries: Yes, Comprehends Conversational Speech: Yes, Benefits from Slow Speech: Yes, Benefits from Repetiton: Yes, Benefits from Increased Volume of Speech: Yes (maybe) - Language/Verbal Expression Able to Respond to Simple Queries: Yes: WNL Able to Communicate Wants and Needs: Yes: WNL Functional Communication Status: Yes: WNL - Memory/Perception FCI Memory: Yes: WNL Short Term Memory: Yes: WNL - Swallow Evaluation/Bedside Assessment Current Nutritional Intake: Regular, Thin Liquids Dentition: Yes: Adequate Facial Symmetry at Rest: Facial Droop Left Facial Movement: Controlled Jaw Position: Closed at Rest Against Resistance Opening: Normal Against Resistance Closing: Normal Pucker Lips: Normal Smile: Droops Left Lingual Movement: Deviates Left (slight??) Lingual Speed of Movement: Normal Lingual Movement Strgth Against Opposition: Reduced (slight?) Lingual Movement Characteristics: Normal Velopharyngeal Movement: Normal Laryngeal Elevation: WFL Laryngeal Movement: Able to Palpate Rate of Intake: WFL Bolus Size: WFL Labial Seal: WFL Chewing: WFL Oral Prep Time: WFL A-P Transit: WFL Pocketing: None Timing of Swallow: WFL Coughing/Throat Clear: No Change in Voice: No Recommendations - Speech Evaluation, Impression/Plan Impression: Left facial. Mild distractibility. Seems intact cognitively. Pt dealing with a lot of stress in her life over last 2 yrs. - Dysphagia Impressions/Plan Swallowing Skills: WFL Dysphagia Impressions: No Impairment *Silent aspiration: cannot be R/O at bedside Recommendations: Neuro Consult (pending) - Recommendations Diet Consistency: Regular Medication Administration: Whole with water Liquids: Thin Liquids
[2018-01-27] MEDS: SODIUM CHLORIDE 1,000 ML IV SCH (16:26)
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
--- NOTE | 2018-01-27 20:23 | PN ---
Teaching Attending Note Name of Resident: Rod Lang ATTENDING PHYSICIAN STATEMENT I saw and evaluated the patient. I reviewed the resident's note and discussed the case with the resident. I agree with the resident's findings and plan as documented. SUBJECTIVE: This patient is a 57 yo with PMHx of HTN, DM, Chol, asthma/COPD and gout is s/p ROSEANNE-BSO for endometrial Ca. Presented with facial numbness and swelling of her face, came to Ed. for further care. As per patient had a headache all day Saturday and woke up with persistent left sided headaches and developed slurred speech, a cloudy feeling in her head, and facial numbness and swelling that persisted for 3-4 hours and resolved with the headache. Patient denies having any headache or fever at this time, no further numbness or tingling. back to her baseline. OBJECTIVE: Vital Signs Temperature 98.2 F 01/27/18 16:35 Pulse Rate 85 01/27/18 16:35 Respiratory Rate 18 01/27/18 17:00 Blood Pressure 135/79 01/27/18 16:35 O2 Sat by Pulse Oximetry (%) 98 01/27/18 17:00 GENERAL: The patient is awake, alert, and fully oriented, in no acute distress. HEAD: Normal with no signs of trauma. EYES: PERRL, extraocular movements intact, sclera anicteric, conjunctiva clear. No ptosis. ENT: Ears normal, nares patent, oropharynx clear without exudates, moist mucous membranes. NECK: Trachea midline, full range of motion, supple. LUNGS: Breath sounds equal, clear to auscultation bilaterally, no wheezes, no crackles, no accessory muscle use. HEART: Regular rate and rhythm, S1, S2 without murmur ABDOMEN: Soft, mild abdominal tenderness , supraumbilical hernia, surgical scars present from laproscopic procedure, normoactive bowel sounds EXTREMITIES: 2+ dorsal pedal pulses, no calf tenderness, warm, well-perfused, no edema. NEUROLOGICAL: Cranial nerves II through XII grossly intact. Normal speech, gait not observed. PSYCH: Normal mood, normal affect. SKIN: Warm, dry, normal turgor CBCD WBC 6.6 K/mm3 (4.0-10.0) 01/27/18 06:00 RBC 4.66 M/mm3 (3.60-5.2) 01/27/18 06:00 Hgb 13.4 GM/dL (10.7-15.3) 01/27/18 06:00 Hct 40.6 % (32.4-45.2) 01/27/18 06:00 MCV 87.3 fl (80-96) 01/27/18 06:00 MCHC 32.9 g/dl (32.0-36.0) 01/27/18 06:00 RDW 14.4 % (11.6-15.6) 01/27/18 06:00 Plt Count 279 K/MM3 (134-434) 01/27/18 06:00 MPV 8.3 fl (7.5-11.1) 01/27/18 06:00 CMP Sodium 143 mmol/L (136-145) 01/27/18 06:00 Potassium 3.8 mmol/L (3.5-5.1) 01/27/18 06:00 Chloride 108 mmol/L (98-107) H 01/27/18 06:00 Carbon Dioxide 26 mmol/L (21-32) 01/27/18 06:00 Anion Gap 9 MMOL/L (8-16) 01/27/18 06:00 BUN 13 mg/dL (7-18) 01/27/18 06:00 Creatinine 0.9 mg/dL (0.55-1.3) 01/27/18 06:00 Creat Clearance w eGFR > 60 (>60) 01/27/18 06:00 Random Glucose 97 mg/dL (74-106) 01/27/18 06:00 Calcium 8.6 mg/dL (8.5-10.1) 01/27/18 06:00 Total Bilirubin 0.6 mg/dL (0.2-1) 01/27/18 06:00 AST 15 U/L (15-37) 01/27/18 06:00 ALT 23 U/L (13-61) 01/27/18 06:00 Alkaline Phosphatase 85 U/L (45-117) 01/27/18 06:00 Total Protein 6.4 g/dl (6.4-8.2) 01/27/18 06:00 Albumin 3.4 g/dl (3.4-5.0) 01/27/18 06:00 CARDIAC ENZYMES Creatine Kinase 78 IU/L (26-192) 01/26/18 15:44 Troponin I < 0.02 ng/ml (0.00-0.05) 01/26/18 15:44 Current Medications Generic Name Dose Route Start Last Admin Trade Name Ajay PRN Reason Stop Dose Admin Amitriptyline HCl 50 mg 01/26/18 22:00 01/26/18 23:05 Elavil - PO 50 mg HS KASSIE Administration Aspirin 325 mg 01/26/18 20:45 01/27/18 10:12 Ecotrin - PO 325 mg DAILY KASSIE Administration Budesonide/Formoterol Fumarate 2 puff 01/26/18 22:00 01/27/18 10:07 Symbicort 160/4.5mcg - IH 2 puff BID KASSIE Administration Colchicine 0.6 mg 01/26/18 22:00 01/27/18 10:12 Colcrys - PO 0.6 mg BID KASSIE Administration Enoxaparin Sodium 40 mg 01/27/18 10:00 01/27/18 10:12 Lovenox - SQ 40 mg DAILY KASSIE Administration Sodium Chloride 1,000 mls @ 42 mls/hr 01/26/18 15:45 01/27/18 16:26 Normal Saline - IV Not Given ASDIR [facility] Insulin Aspart 1 vial 01/26/18 22:00 01/27/18 16:26 Novolog Vial Sliding Scale - SQ Not Given ACHS [facility] Protocol Multivitamins/Minerals/Vitamin C 1 tab 01/27/18 10:00 01/27/18 10:12 Tab-A-Vit - PO 1 tab DAILY KASSIE Administration Non-Formulary Medication 0.5 tab 01/26/18 22:00 Theophylline Anhydrous [Ronal-24] PO BID KASSIE Rosuvastatin Calcium 40 mg 01/26/18 22:00 01/26/18 21:20 Crestor - PO 40 mg HS KASSIE Administration Tiotropium [place] 2 puff 01/27/18 10:00 01/27/18 10:09 Spiriva Respimat IH 2 puff DAILY KASSIE Administration Home Medications Medication Instructions Recorded Salmeterol/Fluticasone [Advair 1 inh IH BID 12/24/12 500Mcg/50Mcg -] Tiotropium [place] [Spiriva -] 1 inh PO DAILY 12/26/12 Amlodipine Besylate 10 mg PO DAILY 03/09/15 Colchicine 0.6 mg PO BID 03/09/15 Amitriptyline HCl [Elavil -] 50 mg PO HS 01/26/18 Diclofenac Sodium 100 gm TP PRN PRN 01/26/18 Doxazosin Mesylate [Cardura -] 2 mg PO DAILY 01/26/18 Multivitamins [Tab-A-Vit -] 1 tab PO DAILY 01/26/18 Nitroglycerin [Nitrostat] 0.4 mg SL PRN PRN 01/26/18 Theophylline Anhydrous [Ronal-24] 0.5 tab PO BID 01/26/18 Lidocaine 5% Patch [Lidoderm -] 1 patch TP DAILY 01/27/18 ECHO: EF: 60-65%, LV size and function normal, RV not visualized, LA and RA normal in size. Carotid Doppler:normal study Head CT: No acute pathology ASSESSMENT AND PLAN: 57 y/o F with PMHx of HTN, DM, COPD, MVP, Fibromyalgia, Endometrial Cancer presents to [facility] [place] 2] after experiencing Slurred Speech, Left sided facial droop and will be observed on Tele-Obs. #Headache with TIA symptoms possible due to exacerbation of her migraine headache. F/u MRI Brain with contrast ordered, Neurology (Dr. Hutson) consulted by ED. Speech and Swallow consult appreciated, ASA 325mg, Crestor 40mg HS, HOB Elevated, Neurochecks Q4H, Fall precautions #HTN on Amlodipine, Doxazosin, Nitro #HLD continue Crestor #DM BGMs ISS ACHS for now, Can d/c if BG at goal #COPD Stable; Home dose Advair, Spiriva, Ronal-24; Theophylline level:4.1 (low) #Gout Stable continue Colchicine # Hx of restless legs syndrome (RLS) will wait for MRI report if neg. will discharge. I
--- NOTE | 2018-01-27 21:17 | CONSULT ---
Consult - text type - Consultation Consultation Note: NEUROLOGY CONSULTATION is greatly appreciated: Events reviewed. Patient examined. This 57 yo RH woman with h/o HTN, DM, Chol, asthma/COPD and gout is s/p ROSEANNE-BSO for endometrial Ca. Maintained on: Lidoderm patch; Advair; Spiriva; Albuterol; Amlodipine; Colchicine; Estraval; Amitriptyline 50 mg PO HS; Doxazosin; and Theophylline. Well-known to me from prior treatment of chronic migraine headaches and Chronic pain due to restless legs syndrome (RLS) Based on my office records patient is allergic to neither Topiramate (tolerated well and eradicated migraines) or pramipexole (caused transient hypotension). Now, patient has fewer headaches, 1 or 2/ month and sleeps "off and on" with some paresthesiae in her hands and feet. Saturday, patient had a headache all day. Yesterday she awoke with persistent left sided headaches and developed slurred speech, a cloudy feeling in her head , and facial numbness and swelling that persisted for 3-4 hours and resolved with the headache. In ER CT of head (reviewed): normal study and Carotid duplex doppler: Normal study. Today she had MRI of brain (also reviewed): normal study. No recurrent headaches or neurological symptoms. GLORIA: Obese. neck supple. Cor reg. No bruits. NEURO: MS/Speech: normal CN II-XII: Normal Motor: No drift or tremor. normal strength, bulk, tone. Normal reflexes in the arms. Reduced symmerically at the knees, absent at the ankles. Downgoing toes. Coord: No FTN dystaxia Sensory: Normal Gait: Waddle without weakness or asymmetry. IMP: Non-focal neurological exam. Cannot exclude a mild diabetic neuropathy. Cannot exclude TIA but events most consistent with Dx of complicated migraine. SUGGEST: No neuro Rx petros this time. Add ASA 81 mg if desired. Neuro f/u with headache diary to see if prophylactic Rx is indicated. Complete cardiac workup. Thank you very much, Rod Hutson MD
[2018-01-27] MEDS: AMITRIPTYLINE HCL 25 MG TABLET (FP) PO SCH (21:58)
[2018-01-27] MEDS: ROSUVASTATIN CA 20 MG TABLET (FP) PO SCH (21:58)
[2018-01-28] MEDS: SODIUM CHLORIDE 1,000 ML IV SCH (05:33)
--- NOTE | 2018-01-28 09:20 | PN ---
Teaching Attending Note Name of Resident: Rod Lang ATTENDING PHYSICIAN STATEMENT I saw and evaluated the patient. I reviewed the resident's note and discussed the case with the resident. I agree with the resident's findings and plan as documented. SUBJECTIVE: Patient is comfortable with no acute distress. OBJECTIVE: Vital Signs Temperature 98.4 F 01/28/18 05:00 Pulse Rate 79 01/28/18 05:00 Respiratory Rate 16 01/28/18 05:00 Blood Pressure 143/82 01/28/18 05:00 O2 Sat by Pulse Oximetry (%) 98 01/28/18 01:00 GENERAL: The patient is awake, alert, and fully oriented, in no acute distress. HEAD: Normal with no signs of trauma. EYES: PERRL, extraocular movements intact, sclera anicteric, conjunctiva clear. ENT: Ears normal, oropharynx clear without exudates, moist mucous membranes. NECK: Trachea midline, full range of motion, supple. LUNGS: Breath sounds equal, clear to auscultation bilaterally, no wheezes, no crackles, no accessory muscle use. HEART: Regular rate and rhythm, S1, S2 without murmur ABDOMEN: Soft, mild abdominal tenderness , supraumbilical hernia, normoactive bowel sounds EXTREMITIES: 2+ dorsal pedal pulses, no calf tenderness, warm, well-perfused, no edema. NEUROLOGICAL: Cranial nerves II through XII grossly intact. Normal speech, gait not observed. PSYCH: Normal mood, normal affect. SKIN: Warm, dry, normal turgor CBCD WBC 6.6 K/mm3 (4.0-10.0) 01/27/18 06:00 RBC 4.66 M/mm3 (3.60-5.2) 01/27/18 06:00 Hgb 13.4 GM/dL (10.7-15.3) 01/27/18 06:00 Hct 40.6 % (32.4-45.2) 01/27/18 06:00 MCV 87.3 fl (80-96) 01/27/18 06:00 MCHC 32.9 g/dl (32.0-36.0) 01/27/18 06:00 RDW 14.4 % (11.6-15.6) 01/27/18 06:00 Plt Count 279 K/MM3 (134-434) 01/27/18 06:00 MPV 8.3 fl (7.5-11.1) 01/27/18 06:00 CMP Sodium 143 mmol/L (136-145) 01/27/18 06:00 Potassium 3.8 mmol/L (3.5-5.1) 01/27/18 06:00 Chloride 108 mmol/L (98-107) H 01/27/18 06:00 Carbon Dioxide 26 mmol/L (21-32) 01/27/18 06:00 Anion Gap 9 MMOL/L (8-16) 01/27/18 06:00 BUN 13 mg/dL (7-18) 01/27/18 06:00 Creatinine 0.9 mg/dL (0.55-1.3) 01/27/18 06:00 Creat Clearance w eGFR > 60 (>60) 01/27/18 06:00 Random Glucose 97 mg/dL (74-106) 01/27/18 06:00 Calcium 8.6 mg/dL (8.5-10.1) 01/27/18 06:00 Total Bilirubin 0.6 mg/dL (0.2-1) 01/27/18 06:00 AST 15 U/L (15-37) 01/27/18 06:00 ALT 23 U/L (13-61) 01/27/18 06:00 Alkaline Phosphatase 85 U/L (45-117) 01/27/18 06:00 Total Protein 6.4 g/dl (6.4-8.2) 01/27/18 06:00 Albumin 3.4 g/dl (3.4-5.0) 01/27/18 06:00 CARDIAC ENZYMES Creatine Kinase 78 IU/L (26-192) 01/26/18 15:44 Troponin I < 0.02 ng/ml (0.00-0.05) 01/26/18 15:44 Current Medications Generic Name Dose Route Start Last Admin Trade Name Freq PRN Reason Stop Dose Admin Amitriptyline HCl 50 mg 01/26/18 22:00 01/27/18 21:58 Elavil - PO 50 mg HS KASSIE Administration Aspirin 325 mg 01/26/18 20:45 01/27/18 10:12 Ecotrin - PO 325 mg DAILY KASSIE Administration Budesonide/Formoterol Fumarate 2 puff 01/26/18 22:00 01/27/18 21:58 Symbicort 160/4.5mcg - IH 2 puff BID KASSIE Administration Colchicine 0.6 mg 01/26/18 22:00 01/27/18 21:58 Colcrys - PO 0.6 mg BID KASSIE Administration Enoxaparin Sodium 40 mg 01/27/18 10:00 01/27/18 10:12 Lovenox - SQ 40 mg DAILY KASSIE Administration Sodium Chloride 1,000 mls @ 42 mls/hr 01/26/18 15:45 01/28/18 05:33 Normal Saline - IV 42 mls/hr ASDIR KASSIE Administration Insulin Aspart 1 vial 01/26/18 22:00 01/27/18 21:58 Novolog Vial Sliding Scale - SQ Not Given ACHS [facility] Protocol Multivitamins/Minerals/Vitamin C 1 tab 01/27/18 10:00 01/27/18 10:12 Tab-A-Vit - PO 1 tab DAILY KASSIE Administration Non-Formulary Medication 0.5 tab 01/26/18 22:00 Theophylline Anhydrous [Ronal-24] PO BID KASSIE Rosuvastatin Calcium 40 mg 01/26/18 22:00 01/27/18 21:58 Crestor - PO 40 mg HS KASSIE Administration Tiotropium [place] 2 puff 01/27/18 10:00 01/27/18 10:09 Spiriva Respimat IH 2 puff DAILY KASSIE Administration Home Medications Medication Instructions Recorded Salmeterol/Fluticasone [Advair 1 inh IH BID 12/24/12 500Mcg/50Mcg -] Tiotropium [place] [Spiriva] 1 inh PO DAILY 12/26/12 Amlodipine Besylate 10 mg PO DAILY 03/09/15 Colchicine 0.6 mg PO BID 03/09/15 Amitriptyline HCl [Elavil -] 50 mg PO HS 01/26/18 Doxazosin Mesylate [Cardura -] 2 mg PO DAILY 01/26/18 Theophylline Anhydrous [Ronal-24] 0.5 tab PO BID 01/26/18 Lidocaine 5% Patch [Lidoderm -] 1 patch TP DAILY 01/27/18 ECHO: EF: 60-65%, LV size and function normal, RV not visualized, LA and RA normal in size. Carotid Doppler:normal study Head CT: No acute pathology ASSESSMENT AND PLAN: 57 y/o F with PMHx of HTN, DM, COPD, MVP, Fibromyalgia, Endometrial Cancer presents to [facility] after experiencing Slurred Speech, Left sided facial droop and will be observed on Tele-Obs. #Headache with TIA symptoms resolved with hx of migraine headache. discharge patient home on ASA 325mg, Crestor 40mg HS, HOB Elevated, Neurochecks Q4H, Fall precautions. #HTN on Amlodipine, Doxazosin, continue #HLD continue Crestor #DM BGMs ISS ACHS for now, Can d/c if BG at goal #COPD Stable; Home dose Advair, Spiriva, Ronal-24; Theophylline level:4.1 (low) #Gout Stable continue Colchicine # Hx of restless legs syndrome (RLS) Discharge patient home.
[2018-01-28] MEDS ORDERED: PT OWN MED DRAWER 7, Y5N ONE (09:40)
[2018-01-28] MEDS: COLCHICINE 0.6 MG TABLET (FP) PO SCH (09:44)
[2018-01-28] MEDS: ENOXAPARIN NA (PORCINE) 40 MG/0.4 ML DISP.SYRIN SQ SCH (09:44)
[2018-01-28] MEDS: MULTIVITAMINS (DAILY MVI) TABLET (FP) PO SCH (09:44)
[2018-01-28] MEDS: BUDESONIDE/FORMETEROL FUMARATE 160/4.5 mcg INHALER IH SCH (09:44)
[2018-01-28] MEDS: TIOTROPIUM BROMIDE 2.5 MCG (SPIRIVA) RESPIMAT INHALER IH SCH (09:44)
[2018-01-28] MEDS: ASPIRIN 325 MG ENTERIC COATED TABLET (FP) PO SCH (09:45)
[2018-01-28 10:59] VITALS: BP 143/88; PULSE 80; TEMP 97.8
[2018-01-28] MEDS: INSULIN SLIDING SCALE (NOVOLOG) 1 VIAL SQ SCH (13:10)
--- NOTE | 2018-01-28 13:25 | DS ---
Physical Exam: SUBJECTIVE: Patient seen and examined. No acute events overnight. Pt. endorses having slurred speech 2/2 hypoglycemia as a child but not as an adult. Pt. denies ever having headaches in the past with slurred speech or facial droop. OBJECTIVE: Vital Signs Period Temp Pulse Resp BP Sys/Rodgers Pulse Ox Last 24 Hr 97.3 F-98.4 F 72-91 16-18 135-157/79-88 96-98 PHYSICAL EXAM GENERAL: The patient is awake, alert, and fully oriented, in no acute distress. HEAD: Normal with no signs of trauma. EYES: PERRL, extraocular movements intact, sclera anicteric, conjunctiva clear. No ptosis. ENT: Ears normal, nares patent, oropharynx clear without exudates, moist mucous membranes. NECK: Trachea midline, full range of motion, supple. LUNGS: Breath sounds equal, clear to auscultation bilaterally, no wheezes, no crackles, no accessory muscle use. HEART: Regular rate and rhythm, S1, S2 without murmur ABDOMEN: Soft, nontender, supraumbilical hernia, surgical scars present from laproscopic procedure, nondistended, normoactive bowel sounds EXTREMITIES: 2+ dorsal pedal pulses, no calf tenderness, warm, well-perfused, no edema. NEUROLOGICAL: Cranial nerves II through XII grossly intact. Normal speech, gait not observed. PSYCH: Normal mood, normal affect. SKIN: Warm, dry, normal turgor LABS Laboratory Results - last 24 hr 01/27/18 01/27/18 01/28/18 16:09 21:07 05:50 POC Glucometer 108 86 110 HOSPITAL COURSE: Date of Admission:01/26/18 Date of Discharge: 01/28/18 Pt. observed for sudden onset slurred speech and left-sided facial droop noticed noticed at first by brother and then the next day at home by . Head CT was negative for any acute pathology. Pt. was outside the window for tPA. When Pt. was examined, symptoms had already started to resolve. Carotid doppler was negative for hemodynamically significant stenosis. Brain MRI negative for any acute pathology however did show increased signal intensity in supratentorial/ subcortical white matter suggestive of gliosis, microangiopathic ischemia, Lyme disease or sarcoidosis. Consults to Neurology appreciated. Hospital course discussed and agreed upon with Pt. and medical staff. Pt. encouraged for follow-up with Neurology. Minutes to complete discharge: 34 Discharge Summary Reason For Visit: SLURRED VISION,TRANSIENT ISCHEMIC ATTACK Condition: Stable - Instructions Diet, Activity, Other Instructions: You were under observation for symptoms of a stroke. You were found not to have a stroke. Please resume all your home medications as they were prescribed. Please follow up with your primary care physician (Dr. العلي) within 72 hours. Please follow up with Dr. Hutson within 1 week. Please return to the emergency department with any new or worsening symptoms or concerns. Referrals: Radhika العلي [Other] Rod Hutson MD [Staff Physician] - Disposition: HOME - Home Medications Comprehensive Discharge Medication List: Ambulatory Orders Salmeterol/Fluticasone [Advair 500Mcg/50Mcg -] 1 inh IH BID 12/24/12 Tiotropium [place] [Spiriva] 1 inh PO DAILY 12/26/12 Amlodipine Besylate 10 mg PO DAILY 03/09/15 Colchicine 0.6 mg PO BID 03/09/15 Amitriptyline HCl [Elavil -] 50 mg PO HS 01/26/18 Doxazosin Mesylate [Cardura -] 2 mg PO DAILY 01/26/18 Theophylline Anhydrous [Ronal-24] 0.5 tab PO BID 01/26/18 Lidocaine 5% Patch [Lidoderm -] 1 patch TP DAILY 01/27/18 Aspirin [ASA -] 81 mg PO DAILY #30 tab.chew 01/28/18 Rosuvastatin [Crestor -] 40 mg PO HS #30 tablet 01/28/18 This patient is new to me today: No Emergency Visit: Yes ED Registration Date: 01/26/18 Care time: The patient presented to the Emergency Department on the above date and was hospitalized for further evaluation of their emergent condition. Critical Care patient: No - Discharge Referral Referred to [facility] Med P.C.: No
== END 2018-01-28 13:36 | disposition home or self-care (01) ==
LOC: JER 15:04 → JERBED 17:24 → J4S 01-27 00:08
PROVIDERS: ADMIT Internal Medicine; ATTEND Internal Medicine
PROC: 3E0337Z Introduction of Electrolytic and Water Balance Substance into Peripheral Vein, Percutaneous Approach (ICD-10-PCS; principal; 2018-01-26)
PROC: 3E013GC Introduction of Other Therapeutic Substance into Subcutaneous Tissue, Percutaneous Approach (ICD-10-PCS; 2018-01-26)
PROC: 3E0F7GC Introduction of Other Therapeutic Substance into Respiratory Tract, Via Natural or Artificial Opening (ICD-10-PCS; 2018-01-26)
DX: R47.81 Slurred speech (principal); I10 Essential (primary) hypertension; E78.5 Hyperlipidemia, unspecified; E11.9 Type 2 diabetes mellitus without complications; J44.9 Chronic obstructive pulmonary disease, unspecified; M10.9 Gout, unspecified; I34.1 Nonrheumatic mitral (valve) prolapse; M79.7 Fibromyalgia; R51 Headache; E66.9 Obesity, unspecified; Z68.42 Body mass index [BMI] 45.0-49.9, adult; Z85.42 Personal history of malignant neoplasm of other parts of uterus; Z90.710 Acquired absence of both cervix and uterus; Z88.8 Allergy status to other drugs, medicaments and biological substances
CPT/HCPCS: 36415; 70450-TC; 70552-TC; 80053; 80198; 81003; 82465; 82550; 82607; 82962; 83036; 83718; 83721; 83735; 84100; 84443; 84478; 84484; 85025; 85610; 86850; 86900; 86901; 93005; 93010; 93306-TC; 93880-TC; 99285-25; G0378; J7030

== ENCOUNTER 2018-03-06 11:46 | Observation (INO) | payer OTHER ==
[2018-03-06 12:09] VITALS: BMI 48.4
--- NOTE | 2018-03-06 13:22 | PDOC ---
History of Present Illness - General Chief Complaint: Chest Pain Stated Complaint: SOB, CHEST PAIN Time Seen by Provider: 03/06/18 12:20 History Source: Patient Exam Limitations: No Limitations - History of Present Illness Initial Comments: 03/06/18 13:15 Pt. is a 57 y.o. F w/ PMHx. of HTN, HLD, DM, COPD, Asthma, Gout, MVP, GERD, Fribromyalgia, Sciatica, Endometrial CA( s/p Hysterectomy 12/19), and DVTs presents to the ED for SOB associated with chest pain, calf tenderness and dizziness. Pt. states that the shortness of breath started 2 days ago suddenly after doing regular non-strenuous daily activities. Pt. went to see her PCP: Dr. العلي, and was sent to the ED for EKG changes. Pt. states that she has been feeling "foggy" and "dizzy" (unable to say if the room or the Pt. was spinning) for at least a week now. Pt. has fallen a few times, last time yesterday but denies LOC or hitting her head. Pt. endorses abdominal pain and an increase in urinary frequency. CBC, CMP, EKG, Cardiac Profile, Duplex of LEs, CTA of Chest and Abdomen/Pelvis CT ordered to evaluate for PE vs. cardiac origin for SOB. Past History - Travel Traveled outside of the country in the last 30 days: No Close contact w/someone who was outside of country & ill: No - Past Medical History Allergies/Adverse Reactions: Allergies Allergy/AdvReac Type Severity Reaction Status Date / Time montelukast sodium Allergy Mild Itching Verified 03/06/18 12:04 [From Singulair] pramipexole [From Mirapex] Allergy Verified 03/06/18 12:04 topiramate [From Topamax] AdvReac Verified 03/06/18 12:04 NALDECON AdvReac Mild NOSE BLEEDS Uncoded 03/06/18 12:04 Home Medications: Ambulatory Orders Salmeterol/Fluticasone [Advair 500Mcg/50Mcg -] 1 inh IH BID 12/24/12 Tiotropium [place] [Spiriva] 1 inh PO DAILY 12/26/12 Amlodipine Besylate 10 mg PO DAILY 03/09/15 Colchicine 0.6 mg PO BID 03/09/15 Amitriptyline HCl [Elavil -] 50 mg PO HS 01/26/18 Doxazosin Mesylate [Cardura -] 2 mg PO DAILY 01/26/18 Theophylline Anhydrous [Ronal-24] 0.5 tab PO BID 01/26/18 Lidocaine 5% Patch [Lidoderm -] 1 patch TP DAILY 01/27/18 Aspirin [ASA -] 81 mg PO DAILY #30 tab.chew 01/28/18 Nitroglycerin Sublingual [Nitrostat -] 0.4 mg SL DAILY PRN 03/06/18 Rosuvastatin [Crestor -] 10 mg PO DAILY 03/06/18 Anemia: No Asthma: Yes Cancer: Yes (endometrial ca) Cardiac Disorders: Yes (MVP) CVA: No COPD: Yes CHF: No DVT: Yes Dementia: No Diabetes: Yes (STATES "YES", ON DIET CONTROLLED) GI Disorders: Yes (GERD 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) Disorders: Yes (Endometrial CA s/p Hysterectomy 12/19) HTN: Yes Hypercholesterolemia: Yes Liver Disease: No Seizures: No Thyroid Disease: No - Surgical History Abdominal Surgery: No Appendectomy: No Cardiac Surgery: No Cholecystectomy: No Lung Surgery: No Neurologic Surgery: No Orthopedic Surgery: No - Immunization History Immunization Up to Date: Yes - Suicide/Smoking/Psychosocial Hx Smoking History: Never smoked Have you smoked in the past 12 months: No Information on smoking cessation initiated: No Hx Alcohol Use: No Drug/Substance Use Hx: No Substance Use Type: None Hx Substance Use Treatment: No Review of Systems - Review of Systems Able to Perform ROS?: Yes Is the patient limited Algerian proficient: No Constitutional: Yes: See HPI, Loss of Appetite, Weakness. No: Diaphoresis, Fever HEENTM: Yes: Blurred Vision, Recent change in vision (intermittent fogginess). No: Hearing Loss, Difficulty Swallowing Respiratory: Yes: Shortness of Breath, SOB with Exertion, SOB at Rest. No: Wheezing, Productive cough, Hemoptysis Cardiac (ROS): Yes: Chest Pain, Edema, Lightheadedness, Syncope ABD/GI: Yes: Poor Appetite, Poor Fluid Intake. No: Abdominal Distended, Constipated, Diarrhea, Nausea, Rectal Bleeding, Vomiting : Yes: Frequency. No: Burning, Dysuria, Discharge, Flank Pain, Hematuria, Pain Musculoskeletal: Yes: Gout, Joint Pain, Muscle Pain, Muscle Weakness Integumentary: Yes: Bruising, Change in Color Neurological: Yes: Weakness, Unsteady Gait, Dizziness. No: Tremors Psychiatric: Yes: Depression, Emotional Problems Endocrine: No: Symptoms Reported Hematologic/Lymphatic: Yes: Blood Clots, Easy Bruising *Physical Exam - Vital Signs Last Vital Signs Temp Pulse Resp BP Pulse Ox 100 H 16 129/69 97 03/06/18 12:06 03/06/18 12:06 03/06/18 12:06 03/06/18 12:06 - Physical Exam General Appearance: Yes: Nourished, Appropriately Dressed, Apparent Distress, Obese. No: Alcohol on Breath, Intoxicated HEENT: positive: BECKY, Normal Voice, Symmetrical, Hearing Grossly Normal. negative: Nasal Congestion Neck: positive: Supple Respiratory/Chest: positive: Lungs Clear, Respiratory Distress, Rapid RR, Decreased Breath Sounds. negative: Crackles, Rales, Rhonchi, Wheezing Cardiovascular: positive: Regular Rhythm, Regular Rate, S1, S2, Edema, Tachycardia. negative: JVD, Murmur Vascular Pulses: Dorsalis-Pedis (R): 2+, Doralis-Pedis (L): 2+ Gastrointestinal/Abdominal: positive: Normal Bowel Sounds, Soft, Protuberent, Guarding, Tenderness (RUQ, RLQ and suprapubic tenderness). negative: Rebound Rectal Exam: positive: deferred Musculoskeletal: positive: Normal Inspection. negative: CVA Tenderness Extremity: positive: Normal Capillary Refill, Pedal Edema, Swelling, Calf Tenderness Integumentary: positive: Normal Color, Dry, Warm Neurologic: positive: Fully Oriented, Alert, Normal Mood/Affect, Normal Response , Respond to painful stimul, Responsive Moderate Sedation - Procedure Monitoring Vital Signs: Procedure Monitoring Vital Signs Temperature Pulse Rate 100 H 03/06/18 12:06 Respiratory Rate 16 03/06/18 12:06 Blood Pressure 129/69 03/06/18 12:06 O2 Sat by Pulse Oximetry (%) 97 03/06/18 12:06 ED Treatment Course - LABORATORY CBC & Chemistry Diagram: 03/06/18 14:20 03/06/18 12:45 - RADIOLOGY Radiology Studies Ordered: Category Date Time Status ABDOMEN & PELVIS CT WITH CONTR [CT] Stat CT Scan 03/06/18 13:13 Ordered CHEST CTA [CT] Stat CT Scan 03/06/18 13:13 Ordered DUPLEX VASCUL US-2LEGS [US] Stat Ultrasound 03/06/18 13:13 Ordered *DC/Admit/Observation/Transfer Diagnosis at time of Disposition: SOB (shortness of breath) - Discharge Dispostion Decision to Admit order: Yes - Referrals Referrals: Radhika العلي MD [Primary Care Provider] - - Patient Instructions - Post Discharge Activity
--- NOTE | 2018-03-06 13:27 | PDOC ---
Attending Attestation - HPI HPI: The patient is a 57 year old female, with a significant PMH of HTN, HLD, DM, COPD, Gout, TIA, DVT, and Endometrial cancer, who presents to the emergency department today complaining of chest pain, bilateral calf pain, and diffuse abdominal pain for 2 days. Patient notes that the chest pain is most prominent in the mid sternum, and is exacerbated with exertion. She also reports associated SOB, fogginess, and lightheadedness. Patient also notes bilateral calf pain, with associated unstableness on her feet. Patient notes her intermittent diffuse abdominal pain has been going on for 2 months, but has gotten significantly worse the past two days. She denies recent illnesses. The patient denies chest pain, shortness of breath, headache and dizziness. Denies fever, chills, nausea, vomit, diarrhea and constipation. Denies dysuria, frequency, urgency and hematuria. Allergies: NKA Past surgical history: Total hysterectomy (12/2017) Social history: No reported PCP: Dr. العلي 03/06/18 13:55 - Physicial Exam PE: GENERAL: Obese. Awake, alert, and fully oriented, in no acute distress HEAD: No signs of trauma EYES: PERRLA, EOMI, sclera anicteric, conjunctiva clear ENT: Auricles normal inspection, hearing grossly normal, nares patent, oropharynx clear without exudates. Moist mucosa NECK: Normal ROM, supple, no lymphadenopathy, JVD, or masses LUNGS: Breath sounds equal, clear to auscultation bilaterally. No wheezes, and no crackles HEART: Regular rate and rhythm, normal S1 and S2, no murmurs, rubs or gallops ABDOMEN: +Diffuse abdominal tenderness to palpation. Soft, normoactive bowel sounds. No guarding, no rebound. No masses EXTREMITIES: +Bilateral calf tenderness. +1+ pitting edema bilateral LE. Normal range of motion. No clubbing or cyanosis. No cords, erythema. NEUROLOGICAL: Cranial nerves II through XII grossly intact. Normal speech, normal gait SKIN: Warm, Dry, normal turgor, no rashes or lesions noted. 03/06/18 13:55 - Medical Decision Making EXAM#: TYPE/EXAM: RESULT: [id number] US/DUPLEX VASCUL US-2LEGS IMPRESSION: No evidence of deep venous thrombosis. Reported By: Amaury Thomas MD 03/06/18 15:19 EXAM#: TYPE/EXAM: RESULT: [id number] CT/CHEST CTA Impression: No CT evidence of pulmonary embolism or other acute intrathoracic pathology. An approximately 2.9 x 2.9 x 1.7 cm nonspecific oval-shaped soft tissue structure is seen within the superior mediastinum abutting the inferior border of the left thyroid lobe. Accurate characterization is limited on the current exam due to partially obscuring artifact arising from adjacent intravascular contrast. Correlation with follow up nonemergent noncontrast CT or MRI is suggested. A 2 mm right middle lobe pulmonary nodule is seen. Six-month follow-up CT may performed. Reported By: Tadeo Szymanski MD 03/06/18 16:38 Documentation prepared by ABENA Hall, acting as medical insurance biller for Ramón Cardenas MD. 03/06/18 16:46 <Mavis Vera - Last Filed: 03/06/18 16:46> - Resident Resident Name: Rod Lang - ED Attending Attestation I have performed the following: I have examined & evaluated the patient, The case was reviewed & discussed with the resident, I agree w/resident's findings & plan, Exceptions are as noted - Medical Decision Making 03/06/18 13:26 A portion of this note was documented by scribe services under my direction. I have reviewed the details of the note, within reason, and agree with the documentation with the following case summary and management plan written by me. Patient treated in the ED. Nursing notes are reviewed and incorporated into the medical decision-making. Vital signs reviewed. Peripheral IV access obtained by the nurse, laboratory studies are drawn and sent, reviewed and interpreted by myself. Vital Signs Temp Pulse Resp BP Pulse Ox 100 H 16 129/69 97 03/06/18 12:06 03/06/18 12:06 03/06/18 12:06 03/06/18 12:06 57 year old female with Past medical history of hypertension, diabetes, hyperlipidemia, COPD, gout, endometrial cancer status post total hysterectomy, TIA, DVT not on anticoagulation presents with multiple complaints. 2 days ago, the patient endorse some intermittent midsternal chest pain that is exertional. Reports some shortness of breath. States that the symptoms have been getting worse despite doing her iliac is living. She also started noticing bilateral calf pain. She is also reporting that she feeling foggy and somewhat unstable on her feet as well as lightheaded. Denies recent illnesses, fevers, chills, cough, vomiting, diarrhea. The patient does note approximate 2 months of intermittent vague diffuse abdominal pain that is worse in the last 2 days. But denies fevers or chills. Given these symptoms, the patient went to her doctor who got EKG sent patient ER. EKG shows incomplete right bundle branch block. Findings concerning for pulmonary embolism and DVT. However, myocardial infarction is within differential. CHF is also within differential. We'll obtain labs, CAT scan and admit the patient to hospital. It is unclear what the abdominal pain, will also obtain an abdomen and pelvis CT for further clarification. 03/06/18 17:55 CBC, BMP 03/06/18 14:20 03/06/18 12:45 CMP Sodium 138 mmol/L (136-145) 03/06/18 12:45 Potassium 3.6 mmol/L (3.5-5.1) 03/06/18 12:45 Chloride 105 mmol/L (98-107) 03/06/18 12:45 Carbon Dioxide 23 mmol/L (21-32) 03/06/18 12:45 Anion Gap 10 MMOL/L (8-16) 03/06/18 12:45 BUN 15 mg/dL (7-18) 03/06/18 12:45 Creatinine 0.8 mg/dL (0.55-1.3) 03/06/18 12:45 Creat Clearance w eGFR > 60 (>60) 03/06/18 12:45 Random Glucose 114 mg/dL (74-106) H 03/06/18 12:45 Calcium 8.6 mg/dL (8.5-10.1) 03/06/18 12:45 Magnesium 2.2 mg/dL (1.8-2.4) 03/06/18 12:45 Total Bilirubin 0.3 mg/dL (0.2-1) 03/06/18 12:45 AST 30 U/L (15-37) 03/06/18 12:45 ALT 36 U/L (13-61) 03/06/18 12:45 Alkaline Phosphatase 103 U/L (45-117) 03/06/18 12:45 Creatine Kinase 118 IU/L (26-192) 03/06/18 12:45 Troponin I < 0.02 ng/ml (0.00-0.05) 03/06/18 12:45 Total Protein 6.9 g/dl (6.4-8.2) 03/06/18 12:45 Albumin 3.8 g/dl (3.4-5.0) 03/06/18 12:45 CT chest with no PE. HOwever, with thyroid and lung nodule. Pt informed of the nodules, and will need further either inpatient or outpatient workup. Abdomen and pelvis should parminder-umbilical hernia but no strangulation. Will need referal to general surgery. Given no recent stress test, pt will need further workup and possible stress for SOB. Admit. <Ramón Cardenas - Last Filed: 03/06/18 17:58> Heart Score/ECG Review #1 ECG reviewed & interpreted by me at: 12:15 03/06/18 15:41 NSR 94, no std/cindy, incomplete RBBB, Q wave V1-V3, normal axis, QTC 457 msec <Ramón Cardenas - Last Filed: 03/06/18 17:58>
[2018-03-06 14:03] LABS: MAGNESIUM 2.2 mg/dL (1.8-2.4)
[2018-03-06 14:08] LABS: ALBUMIN 3.8 g/dl (3.4-5.0); ALK PHOS 103 U/L (45-117); ANION GAP 10 MMOL/L (8-16); BILIRUBIN,TOTAL 0.3 mg/dL (0.2-1); BLOOD UREA NITROGEN 15 mg/dL (7-18); CALCIUM 8.6 mg/dL (8.5-10.1); CHLORIDE 105 mmol/L (98-107); CO2 23 mmol/L (21-32); CREATININE 0.8 mg/dL (0.55-1.3); GLUCOSE,RANDOM 114 mg/dL (74-106); POTASSIUM 3.6 mmol/L (3.5-5.1); SGOT/AST 30 U/L (15-37); SGPT/ALT 36 U/L (13-61); SODIUM 138 mmol/L (136-145); TOT PROT 6.9 g/dl (6.4-8.2)
[2018-03-06 15:30] LABS: BASO % 0.4 % (0-2.0); HEMATOCRIT 38.8 % (32.4-45.2); HEMOGLOBIN 13.7 GM/dL (10.7-15.3); LYMPH % 25.6 % (8-40); MCH 30.3 pg (25.7-33.7); MCHC 35.2 g/dl (32.0-36.0); MEAN CELL VOLUME 85.9 fl (80-96); MONO % 7.3 % (3.8-10.2); NEUT % 64.7 % (42.8-82.8); PLATELET COUNT 305 K/MM3 (134-434); RBC 4.52 M/mm3 (3.60-5.2); RDW 14.5 % (11.6-15.6); WHITE BLOOD COUNT 9.3 K/mm3 (4.0-10.0)
[2018-03-06] MEDS ORDERED: morphine CARPU-JECT 4 MG/1 ML DISP.SYRIN IVPUSH ONE (16:04)
[2018-03-06] MEDS ORDERED: morphine SULFATE 4 MG/ML VIAL ONE (16:08)
[2018-03-06] MEDS ORDERED: LORazepam 2 MG/ML SDV VIAL ONE (16:09)
--- NOTE | 2018-03-06 16:14 | EKG ---
Test Reason : Blood Pressure : / mmHG Vent. Rate : 094 BPM Atrial Rate : 094 BPM P-R Int : 174 ms QRS Dur : 098 ms QT Int : 366 ms P-R-T Axes : 034 034 041 degrees QTc Int : 457 ms POOR DATA QUALITY, INTERPRETATION MAY BE ADVERSELY AFFECTED NORMAL SINUS RHYTHM POSSIBLE LEFT ATRIAL ENLARGEMENT INCOMPLETE RIGHT BUNDLE BRANCH BLOCK ANTERIOR INFARCT (CITED ON OR BEFORE 26-JAN-2018) ABNORMAL ECG WHEN COMPARED WITH ECG OF 26-JAN-2018 15:43, NO SIGNIFICANT CHANGE WAS FOUND Confirmed by KATELYN REID MD ([id number]) on 03/06/2018 4:14:18 PM Referred By: Confirmed By:KATELYN REID MD
[2018-03-06] MEDS ORDERED: SODIUM CHLORIDE 1,000 ML IV SCH (16:15)
--- NOTE | 2018-03-06 18:23 | HP ---
CHIEF COMPLAINT: shortness of breath and leg pain/cramps PCP: Dr اعللي HISTORY OF PRESENT ILLNESS: 57 yof with PMHx of 57 y/o F with PMHx of HTN, HLD, DM (diet controlled), COPD, Asthma, Gout, MVP, GERD, Fibromyalgia, Sciatica, Endometrial Cancer s/p Lap hysterectomy in 12/2017, morbid obesity, ?remote h/o DVT (never been on anticoagulation per patient) was in her USOH till yesterday afternoon, when had sudden onset of dyspnea. [place] could not catch her breath. Symptoms lasted all day, was seen by PCP today, reportedly with new EKG changes (?New incomplete RBBB),sent to ED. Patient also c/o chronic bilateral leg pain./cramps, worsened over last 2 months. 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 12 point ROS done, denies any fevers, chills, cough, URI like illness, sick contacts, chest pressure, arm or jaw pain, changes in bowels, decreased Po intake, nausea, vomiting, recent travel. Positive h/o snoring, no prior sleep study. Not fairly active at baseline but no exertional chest pain noted. Unable to recall her last stress test. SYmptoms resolved after receiving ativan in the ED. Prn NTG but for non specific left chest 'spasms' ER course was notable for: (1) CTA and LE duplex (2) Ativan Recent Travel: Denies PAST MEDICAL HISTORY: HTN, HLD, DM (diet controlled), COPD, Asthma, Gout, MVP, GERD, Fibromyalgia, Sciatica, Endometrial Cancer s/p Lap hysterectomy/?BRITNEY in 2017, morbid obesity, ?remote h/o DVT (never been on anticoagulation per patient ) PAST SURGICAL HISTORY: Endometrial Cancer s/p Total Hysterectomy (12/2017) Rotator Cuff (03/19) Torn R Meniscus (12/14) () Social History: Smoking: lifelong second hand smoking Alcohol: occasional Drugs: remote h/o "recreational drugs" as teenager, no IVDU 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, 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 Family History: no early CAD Allergies montelukast sodium [From Singulair] Allergy (Mild, Verified 03/06/18 12:04) Itching pramipexole [From Mirapex] Allergy (Verified 03/06/18 12:04) topiramate [From Topamax] Adverse Reaction (Verified 03/06/18 12:04) NALDECON Adverse Reaction (Mild, Uncoded 03/06/18 12:04) NOSE BLEEDS HOME MEDICATIONS: Home Medications Medication Instructions Recorded Salmeterol/Fluticasone [Advair 1 inh IH BID 12/24/12 500Mcg/50Mcg -] Tiotropium [place] [Spiriva] 1 inh PO DAILY 12/26/12 Amlodipine Besylate 10 mg PO DAILY 03/09/15 Colchicine 0.6 mg PO BID 03/09/15 Amitriptyline HCl [Elavil -] 50 mg PO HS 01/26/18 Doxazosin Mesylate [Cardura -] 2 mg PO DAILY 01/26/18 Theophylline Anhydrous [Ronal-24] 0.5 tab PO BID 01/26/18 Aspirin [ASA -] 81 mg PO DAILY #30 tab.chew 01/28/18 Diclofenac Sodium 25 mg PO DAILY PRN 03/06/18 Nitroglycerin Sublingual 0.4 mg SL DAILY PRN 03/06/18 [Nitrostat -] Rosuvastatin [Crestor -] 10 mg PO DAILY 03/06/18 REVIEW OF SYSTEMS CONSTITUTIONAL: Absent: fever, chills, diaphoresis, generalized weakness, malaise, loss of appetite, weight change HEENT: Absent: rhinorrhea, nasal congestion, throat pain, throat swelling, difficulty swallowing, mouth swelling, ear pain, eye pain, visual changes CARDIOVASCULAR: Absent: chest pain, syncope, palpitations, irregular heart rate, lightheadedness , peripheral edema RESPIRATORY: Absent: cough, orthopnea, wheezing, stridor, hemoptysis Present: dyspnea GASTROINTESTINAL: Absent: , abdominal distension, nausea, vomiting, diarrhea, constipation, melena , hematochezia Present: abdominal pain as above GENITOURINARY: Absent: dysuria, frequency, urgency, hesitancy, hematuria, flank pain, genital pain Positive: polyuria MUSCULOSKELETAL: Absent: myalgia, arthralgia, joint swelling, back pain, neck pain SKIN: Absent: rash, itching, pallor HEMATOLOGIC/IMMUNOLOGIC: Absent: easy bleeding, easy bruising, lymphadenopathy, frequent infections ENDOCRINE: Absent: unexplained weight gain, unexplained weight loss, heat intolerance, cold intolerance NEUROLOGIC: Absent: headache, focal weakness or paresthesias, dizziness, unsteady gait, seizure, mental status changes, bladder or bowel incontinence PSYCHIATRIC: Absent: anxiety, depression, suicidal or homicidal ideation, hallucinations. PHYSICAL EXAMINATION Vital Signs - 24 hr 03/06/18 12:06 Pulse Rate 100 H Respiratory 16 Rate Blood Pressure 129/69 O2 Sat by Pulse 97 Oximetry (%) GENERAL: Awake, alert, and fully oriented, in no acute distress, morbidly obese , BMI 48. HEAD: Normal with no signs of trauma. EYES: Pupils equal, round and reactive to light, extraocular movements intact, sclera anicteric, conjunctiva clear. No lid lag. EARS, NOSE, THROAT: Ears normal, nares patent, oropharynx clear without exudates. Moist mucous membranes. NECK: Normal range of motion, supple without lymphadenopathy, JVD, or masses. LUNGS: Breath sounds equal, clear to auscultation bilaterally. No wheezes, and no crackles. No accessory muscle use. HEART: Regular rate and rhythm, normal S1 and S2 ABDOMEN: Soft, obese, vague Right parminder-umbilical tenderness, no voluntary or involuntary guarding or rigidity, prior laparoscopic scars, not distended, normoactive bowel sounds, no guarding, no rebound, no masses. No hepatomegaly or splenomegaly. MUSCULOSKELETAL: Normal range of motion at all joints. No bony deformities or tenderness. No CVA tenderness. UPPER EXTREMITIES: 2+ pulses, warm, well-perfused. No cyanosis. No clubbing. No peripheral edema. LOWER EXTREMITIES: 2+ pulses, warm, well-perfused. No calf tenderness. No peripheral edema. jumps in bed on minimal superficial palpation of lower extremities NEUROLOGICAL: Cranial nerves II-XII intact. Normal speech. Gait deferred PSYCHIATRIC: Cooperative. Good eye contact. Appropriate mood and affect. SKIN: Warm, dry, normal turgor, no rashes or lesions noted, normal capillary refill. Laboratory Results - last 24 hr 03/06/18 03/06/18 03/06/18 12:45 12:45 14:20 WBC 9.3 RBC 4.52 Hgb 13.7 Hct 38.8 MCV 85.9 MCH 30.3 MCHC 35.2 RDW 14.5 Plt Count 305 MPV 9.0 Absolute Neuts (auto) 6.0 Neutrophils % 64.7 D Lymphocytes % 25.6 D Monocytes % 7.3 Eosinophils % 2.0 Basophils % 0.4 Nucleated RBC % 0 Sodium 138 Potassium 3.6 Chloride 105 Carbon Dioxide 23 Anion Gap 10 BUN 15 Creatinine 0.8 Creat Clearance w eGFR > 60 Random Glucose 114 H Calcium 8.6 Magnesium 2.2 Total Bilirubin 0.3 AST 30 ALT 36 Alkaline Phosphatase 103 Creatine Kinase 118 116 Troponin I < 0.02 < 0.02 Total Protein 6.9 Albumin 3.8 LE duplex/CT A/P/CTA chest results reviewed EKG: NSR 94, incomplete RBBB (new), QS in V1-V2 (old) ASSESSMENT/PLAN: 57 yof with PMhx of HTN, HLD, DM (diet controlled), COPD, Asthma, Gout, MVP, GERD, Fibromyalgia, Sciatica, Endometrial Cancer s/p Lap hysterectomy in 12/2017 , morbid obesity, ?remote h/o DVT (never been on anticoagulation per patient) admitted with dyspnea and multitude of chronic symptoms including leg pain and abdominal pain -Dypnea, suspect anxiety related given resolution with ativan, suspected underlying JACKELYN/?OHS, PE ruled out, does not look in COPD/Asthma exac, low suspicion for ACS -Chronic leg pain -Chronic abdominal pain -Diet controlled DM -HTN -HLD -Asthma/COPD -Morbid obesity -Fibromyalgia -Endometrial ca s/p lap hysterectomy 12/2017 -Soft tissue structure abutting left lower thyroid lobe -Umbilical hernia -Gout Plan: CTA/LE duplex/CT A/P noted telemetry, cycle troponin. Recent Echo in 01/2018. Nuclear stress test. Continue ASA/statin BP control with amlodipine/doxazocin Continue colchicine Continue advair/spiriva/theophylline. patient counseled on weight loss, outpatient sleep study and pulmonary follow up. patient and informed of the ?thyroid nodule and pulmonary nodule findings and need for outpatient endocrine follow up and CT chest in 6 months. Check TSH DVTPPX lovenox Dispo d/c home in 24 hours if cardiac w/u non concerning and no new events. Plan discussed with patient and at bedside in detail, all questions answered Total admit time 55 min. Visit type - Emergency Visit Emergency Visit: Yes Care time: The patient presented to the Emergency Department on the above date and was hospitalized for further evaluation of their emergent condition. - New Patient This patient is new to me today: Yes Date on this admission: 03/06/18 - Critical Care Critical Care patient: No
[2018-03-06] MEDS ORDERED: ATORVASTATIN CA 40 MG TABLET (FP) PO SCH (22:00)
[2018-03-06] MEDS ORDERED: AMITRIPTYLINE HCL 25 MG TABLET (FP) PO SCH (22:00)
[2018-03-07] MEDS: FLUTICASONE/SALMETEROL 100 MCG/50 MCG DISKUS IH SCH ×2 (01:40→09:11)
[2018-03-07] MEDS: COLCHICINE 0.6 MG TABLET (FP) PO SCH ×2 (01:40→09:11)
[2018-03-07] MEDS: INSULIN SLIDING SCALE (NOVOLOG) 1 VIAL SQ SCH ×3 (02:17→13:43)
[2018-03-07 06:35] LABS: BASO % 0.5 % (0-2.0); EOS % 3.4 % (0-4.5); HEMOGLOBIN 12.3 GM/dL (10.7-15.3); LYMPH % 32.6 % (8-40); MCH 28.3 pg (25.7-33.7); MCHC 32.5 g/dl (32.0-36.0); MEAN CELL VOLUME 87.1 fl (80-96); MEAN PLT VOLUME 8.4 fl (7.5-11.1); MONO % 7.3 % (3.8-10.2); NEUT % 56.2 % (42.8-82.8); PLATELET COUNT 261 K/MM3 (134-434); RBC 4.36 M/mm3 (3.60-5.2); RDW 14.5 % (11.6-15.6); WHITE BLOOD COUNT 7.2 K/mm3 (4.0-10.0)
[2018-03-07 06:57] LABS: ANION GAP 8 MMOL/L (8-16); BLOOD UREA NITROGEN 18 mg/dL (7-18); CALCIUM 8.4 mg/dL (8.5-10.1); CHLORIDE 104 mmol/L (98-107); CO2 26 mmol/L (21-32); CREATININE 0.9 mg/dL (0.55-1.3); GLUCOSE,RANDOM 120 mg/dL (74-106); MAGNESIUM 2.2 mg/dL (1.8-2.4); PHOSPHOROUS 5.8 mg/dL (2.5-4.9); POTASSIUM 3.6 mmol/L (3.5-5.1); SODIUM 138 mmol/L (136-145)
[2018-03-07 07:14] LABS: INR 0.94 (0.83-1.09); PROTHROMBIN TIME (PATIENT) 11.1 SEC (9.7-13.0)
[2018-03-07 09:26] LABS: CHOLESTEROL 137 mg/dL (50-200); HDL CHOLESTEROL 64 mg/dL (40-60); TRIGLYCERIDES 76 mg/dL (0-150)
[2018-03-07] MEDS ORDERED: REGADENOSON 0.4 MG/5 ML PRE-FILLED SYRINGE IVPUSH ONE ×2 (09:47→11:00)
[2018-03-07] MEDS ORDERED: amLODIPine BESYLATE 10 MG TABLET (FP) PO SCH (10:00)
[2018-03-07] MEDS ORDERED: ASPIRIN 81 MG CHEWABLE TABLETS PO SCH (10:00)
[2018-03-07] MEDS ORDERED: DOXAZOSIN MESYLATE 2 MG TABLET (FP) PO SCH (10:00)
[2018-03-07] MEDS ORDERED: TIOTROPIUM BROMIDE 2.5 MCG (SPIRIVA) RESPIMAT INHALER IH SCH (10:00)
[2018-03-07] MEDS ORDERED: ENOXAPARIN NA (PORCINE) 40 MG/0.4 ML DISP.SYRIN SQ SCH (10:00)
[2018-03-07 10:05] VITALS: TEMP 97.8
--- NOTE | 2018-03-07 11:31 | PN ---
Teaching Attending Note Name of Resident: Georegtte Armstrong ATTENDING PHYSICIAN STATEMENT I saw and evaluated the patient. I reviewed the resident's note and discussed the case with the resident. I agree with the resident's findings and plan as documented with exceptions below. SUBJECTIVE: Patient seen and examined, no further dyspnea or chest pain. No events overnight. OBJECTIVE: Vital Signs Period Temp Pulse Resp BP Sys/Rodgers Pulse Ox Last 24 Hr 97.8 F-98.2 F 81-100 16-18 114-138/60-81 95-98 Intake & Output 03/04/18 03/05/18 03/06/18 03/07/18 23:59 23:59 23:59 23:59 Weight 265 lb 275 lb 9.245 oz General: sitting in wheelchair on her way to stress test Chest: good air entry bilaterally, no rales or wheezing Abdomen:soft, obese, NT Extremities: trace pedal edema Home Medications Medication Instructions Recorded Salmeterol/Fluticasone [Advair 1 inh IH BID 12/24/12 500Mcg/50Mcg -] Tiotropium [place] [Spiriva] 1 inh PO DAILY 12/26/12 Amlodipine Besylate 10 mg PO DAILY 03/09/15 Colchicine 0.6 mg PO BID 03/09/15 Amitriptyline HCl [Elavil -] 50 mg PO HS 01/26/18 Doxazosin Mesylate [Cardura -] 2 mg PO DAILY 01/26/18 Theophylline Anhydrous [Ronal-24] 0.5 tab PO BID 01/26/18 Aspirin [ASA -] 81 mg PO DAILY #30 tab.chew 01/28/18 Diclofenac Sodium 25 mg PO DAILY PRN 03/06/18 Nitroglycerin Sublingual 0.4 mg SL DAILY PRN 03/06/18 [Nitrostat -] Rosuvastatin [Crestor -] 10 mg PO DAILY 03/06/18 Active Medications Amitriptyline HCl (Elavil -) 50 mg PO HS [facility] Last Admin: 03/07/18 01:40 Dose: 50 mg Amlodipine Besylate (Norvasc -) 10 mg PO DAILY [facility] Last Admin: 03/07/18 09:11 Dose: 10 mg Aspirin (Asa -) 81 mg PO DAILY [facility] Last Admin: 03/07/18 09:11 Dose: 81 mg Atorvastatin Calcium (Lipitor -) 40 mg PO HS [facility] Last Admin: 03/07/18 01:41 Dose: 40 mg Colchicine (Colcrys -) 0.6 mg PO BID [facility] Last Admin: 03/07/18 09:11 Dose: 0.6 mg Doxazosin Mesylate (Cardura -) 2 mg PO DAILY [facility] Last Admin: 03/07/18 09:11 Dose: 2 mg Enoxaparin Sodium (Lovenox -) 40 mg SQ DAILY [facility] Last Admin: 03/07/18 09:11 Dose: 40 mg Insulin Aspart (Novolog Vial Sliding Scale -) 1 vial SQ ACHS [facility]; Protocol Last Admin: 03/07/18 06:33 Dose: Not Given Fluticasone/Salmeterol (Advair 100mcg/50mcg -) 1 puff IH BID [facility] Last Admin: 03/07/18 09:11 Dose: 1 puff Tiotropium [place] (Spiriva Respimat) 2 puff IH DAILY [facility] Last Admin: 03/07/18 09:12 Dose: Not Given Laboratory Results - last 24 hr 03/06/18 03/06/18 03/06/18 12:45 12:45 14:20 WBC 9.3 RBC 4.52 Hgb 13.7 Hct 38.8 MCV 85.9 MCH 30.3 MCHC 35.2 RDW 14.5 Plt Count 305 MPV 9.0 Absolute Neuts (auto) 6.0 Neutrophils % 64.7 D Lymphocytes % 25.6 D Monocytes % 7.3 Eosinophils % 2.0 Basophils % 0.4 Nucleated RBC % 0 PT with INR INR Sodium 138 Potassium 3.6 Chloride 105 Carbon Dioxide 23 Anion Gap 10 BUN 15 Creatinine 0.8 Creat Clearance w eGFR > 60 Random Glucose 114 H Calcium 8.6 Phosphorus Magnesium 2.2 Total Bilirubin 0.3 AST 30 ALT 36 Alkaline Phosphatase 103 Creatine Kinase 118 116 Troponin I < 0.02 < 0.02 Total Protein 6.9 Albumin 3.8 Triglycerides Cholesterol Total LDL Cholesterol HDL Cholesterol TSH 03/06/18 03/06/18 03/07/18 20:15 20:15 05:00 WBC RBC Hgb Hct MCV MCH MCHC RDW Plt Count MPV Absolute Neuts (auto) Neutrophils % Lymphocytes % Monocytes % Eosinophils % Basophils % Nucleated RBC % PT with INR INR Sodium Potassium Chloride Carbon Dioxide Anion Gap BUN Creatinine Creat Clearance w eGFR Random Glucose Calcium Phosphorus Magnesium Total Bilirubin AST ALT Alkaline Phosphatase Creatine Kinase Troponin I < 0.02 < 0.02 Total Protein Albumin Triglycerides Cholesterol Total LDL Cholesterol HDL Cholesterol TSH 2.02 03/07/18 03/07/18 03/07/18 06:00 06:00 06:00 WBC 7.2 RBC 4.36 Hgb 12.3 Hct 38.0 MCV 87.1 MCH 28.3 MCHC 32.5 RDW 14.5 Plt Count 261 MPV 8.4 Absolute Neuts (auto) 4.1 Neutrophils % 56.2 Lymphocytes % 32.6 D Monocytes % 7.3 Eosinophils % 3.4 Basophils % 0.5 Nucleated RBC % 0 PT with INR 11.10 INR 0.94 Sodium 138 Potassium 3.6 Chloride 104 Carbon Dioxide 26 Anion Gap 8 BUN 18 Creatinine 0.9 Creat Clearance w eGFR > 60 Random Glucose 120 H Calcium 8.4 L Phosphorus 5.8 H Magnesium 2.2 Total Bilirubin AST ALT Alkaline Phosphatase Creatine Kinase Troponin I Total Protein Albumin Triglycerides 76 Cholesterol 137 Total LDL Cholesterol 56 HDL Cholesterol 64 H TSH ASSESSMENT AND PLAN: 57 yof with PMhx of HTN, HLD, DM (diet controlled), COPD, Asthma, Gout, MVP, GERD, Fibromyalgia, Sciatica, Endometrial Cancer s/p Lap hysterectomy in 12/2017 , morbid obesity, ?remote h/o DVT (never been on anticoagulation per patient) admitted with dyspnea and multitude of chronic symptoms including leg pain and abdominal pain -Dypnea, suspect anxiety related given resolution with ativan, suspected underlying JACKELYN/?OHS, PE ruled out, does not look in COPD/Asthma exac, low suspicion for ACS -Chronic leg pain -Chronic abdominal pain -Diet controlled DM -HTN -HLD -Asthma/COPD -Morbid obesity -Fibromyalgia -Endometrial ca s/p lap hysterectomy 12/2017 -Soft tissue structure abutting left lower thyroid lobe -Umbilical hernia -Gout Plan: CTA/LE duplex/CT A/P noted No events telemetry, ACS ruled out. Recent Echo in 01/2018. Follow up Nuclear stress test. Continue ASA/statin BP control with amlodipine/doxazocin Continue colchicine Continue advair/spiriva/theophylline. Patient counseled on weight loss, outpatient sleep study and pulmonary follow up. Patient and informed of the ?thyroid nodule and pulmonary nodule findings and need for outpatient endocrine follow up and CT chest in 6 months. Check TSH DVTPPX lovenox Dispo d/c home later today if stress test neg and no new concerns Plan discussed with patient, all questions answered
[2018-03-07] MEDS ORDERED: DOBUTAMINE HCL 100,000 MCG in DEXTROSE 5%-WATER - 92 ML IVPB ONE (12:30)
--- NOTE | 2018-03-07 15:34 | DS ---
Physical Exam: SUBJECTIVE: Patient seen and examined at bed side this afternoon after stress test. Eating lunch. She was doing well. States chest pain has resolved. Denies shortness of breath, palpitation, abdominal pain, nausea or vomiting. OBJECTIVE: Vital Signs Period Temp Pulse Resp BP Sys/Rodgers Pulse Ox Last 24 Hr 97.8 F-98.2 F 81-97 16-18 114-138/60-81 95-98 PHYSICAL EXAM GENERAL: Morbidly obese female, sitting comfortably in bed, is awake, alert, and fully oriented, in no acute distress. HEAD: Normal with no signs of trauma. EYES: EOM intact, no pallor or icterus. ENT: Ears normal, moist mucous membranes. NECK: Supple. LUNGS: B/L Breath sounds equal, clear to auscultation bilaterally, no wheezes, no crackles, no accessory muscle use. HEART: Regular rate and rhythm, S1, S2 without murmur. ABDOMEN: Soft, nontender, no organomegaly. EXTREMITIES: 2+ pulses, warm, well-perfused, no edema. NEUROLOGICAL: No facial droop. Normal speech, gait not observed. PSYCH: Normal mood, normal affect. SKIN: Warm, dry, normal turgor, no rashes or lesions noted. LABS Laboratory Results - last 24 hr 03/06/18 03/06/18 03/06/18 14:20 20:15 20:15 WBC 9.3 RBC 4.52 Hgb 13.7 Hct 38.8 MCV 85.9 MCH 30.3 MCHC 35.2 RDW 14.5 Plt Count 305 MPV 9.0 Absolute Neuts (auto) 6.0 Neutrophils % 64.7 D Lymphocytes % 25.6 D Monocytes % 7.3 Eosinophils % 2.0 Basophils % 0.4 Nucleated RBC % 0 PT with INR INR Sodium Potassium Chloride Carbon Dioxide Anion Gap BUN Creatinine Creat Clearance w eGFR Random Glucose Calcium Phosphorus Magnesium Troponin I < 0.02 Triglycerides Cholesterol Total LDL Cholesterol HDL Cholesterol TSH 2.02 03/07/18 03/07/18 03/07/18 05:00 06:00 06:00 WBC 7.2 RBC 4.36 Hgb 12.3 Hct 38.0 MCV 87.1 MCH 28.3 MCHC 32.5 RDW 14.5 Plt Count 261 MPV 8.4 Absolute Neuts (auto) 4.1 Neutrophils % 56.2 Lymphocytes % 32.6 D Monocytes % 7.3 Eosinophils % 3.4 Basophils % 0.5 Nucleated RBC % 0 PT with INR 11.10 INR 0.94 Sodium Potassium Chloride Carbon Dioxide Anion Gap BUN Creatinine Creat Clearance w eGFR Random Glucose Calcium Phosphorus Magnesium Troponin I < 0.02 Triglycerides Cholesterol Total LDL Cholesterol HDL Cholesterol TSH 03/07/18 06:00 WBC RBC Hgb Hct MCV MCH MCHC RDW Plt Count MPV Absolute Neuts (auto) Neutrophils % Lymphocytes % Monocytes % Eosinophils % Basophils % Nucleated RBC % PT with INR INR Sodium 138 Potassium 3.6 Chloride 104 Carbon Dioxide 26 Anion Gap 8 BUN 18 Creatinine 0.9 Creat Clearance w eGFR > 60 Random Glucose 120 H Calcium 8.4 L Phosphorus 5.8 H Magnesium 2.2 Troponin I Triglycerides 76 Cholesterol 137 Total LDL Cholesterol 56 HDL Cholesterol [address] evidence of pulmonary embolism or other acute intrathoracic pathology. An approximately 2.9 x 2.9 x 1.7 cm nonspecific oval-shaped soft tissue structure is seen within the superior mediastinum abutting the inferior border of the left thyroid lobe. Accurate characterization is limited on the current exam due to partially obscuring artifact arising from adjacent intravascular contrast. Correlation with follow up nonemergent noncontrast CT or MRI is suggested. A 2 mm right middle lobe pulmonary nodule is seen. Six-month follow-up CT may performed. HOSPITAL COURSE: Date of Admission:03/06/18 Date of Discharge: 03/07/18 Patient is a 57 year old female with PMhx of HTN, HLD, DM (diet controlled), COPD, Asthma, Gout, MVP, GERD, Fibromyalgia, Sciatica, Endometrial Cancer s/p Lap hysterectomy in 12/2017, Morbid obesity, ?remote h/o DVT (never been on anticoagulation per patient) admitted with shortness of breath, chest pain, bilateral leg pain and abdominal pain. Patient admitted for evaluation of Shortness of breath. Was given Ativan and her symptoms resolved which could likely be from anxiety. CTA was done. PE ruled out. There was incidental finding of a nodule in the left thyroid lobe and a pulmonary nodule, needs to f/up CT in 6 months. Stress test was done today which was negative. Duplex was done, negative for DVT. Patient is currently asymptomatic and hemodynamically stable and can be discharged home. Needs to f/up with PCP and cardiology as outpatient. Minutes to complete discharge: 45 Discharge Summary Reason For Visit: SHORTNESS OF BREATH Current Active Problems SOB (shortness of breath) (Acute) Condition: Good - Instructions Diet, Activity, Other Instructions: You were admitted with trouble breathing. You had a CT chest that was negative for clot. You also had duplex of your legs that were negative for clot. You were watched on monitor and heart attack was ruled out. You had stress test prelim results are negative for any concerns. You can have your doctor follow up on final results. Following incidental findings that need follow up: You were found with a soft tissue structure suspected Thyroid nodule.You will need outpatient follow up with endocrinology and additional testing including CT or MRI Also noted with a small lung nodule that will need follow up CT chest in 6 months. Follow up with your primary care doctor in 1 week. Also advised outpatient sleepy study and lung doctor follow up Call 911 or come to ED if worsening or new symptoms or any new concerns noted. Referrals: Radhika العلي MD [Primary Care Provider] - Disposition: HOME - Home Medications Comprehensive Discharge Medication List: Ambulatory Orders Salmeterol/Fluticasone [Advair 500Mcg/50Mcg -] 1 inh IH BID 12/24/12 Tiotropium [place] [Spiriva] 1 inh PO DAILY 12/26/12 Amlodipine Besylate 10 mg PO DAILY 03/09/15 Colchicine 0.6 mg PO BID 03/09/15 Amitriptyline HCl [Elavil -] 50 mg PO HS 01/26/18 Doxazosin Mesylate [Cardura -] 2 mg PO DAILY 01/26/18 Theophylline Anhydrous [Ronal-24] 0.5 tab PO BID 01/26/18 Aspirin [ASA -] 81 mg PO DAILY #30 tab.chew 01/28/18 Diclofenac Sodium 25 mg PO DAILY PRN 03/06/18 Nitroglycerin Sublingual [Nitrostat -] 0.4 mg SL DAILY PRN 03/06/18 Rosuvastatin [Crestor -] 10 mg PO DAILY 03/06/18 This patient is new to me today: Yes Date on this admission: 03/07/18 Emergency Visit: Yes ED Registration Date: 03/06/18 Care time: The patient presented to the Emergency Department on the above date and was hospitalized for further evaluation of their emergent condition. Critical Care patient: No - Discharge Referral Referred to [facility] Med [facility] No
[2018-03-07 15:35] VITALS: BP 140/80; PULSE 88
== END 2018-03-07 15:49 | disposition home or self-care (01) ==
LOC: JER 11:46 → JERBED 17:55
PROVIDERS: ADMIT Hospitalist; ATTEND Hospitalist
PROC: 3E033NZ Introduction of Analgesics, Hypnotics, Sedatives into Peripheral Vein, Percutaneous Approach (ICD-10-PCS; principal; 2018-03-06)
PROC: 3E033GC Introduction of Other Therapeutic Substance into Peripheral Vein, Percutaneous Approach (ICD-10-PCS; 2018-03-06)
PROC: 3E0337Z Introduction of Electrolytic and Water Balance Substance into Peripheral Vein, Percutaneous Approach (ICD-10-PCS; 2018-03-06)
PROC: 3E013GC Introduction of Other Therapeutic Substance into Subcutaneous Tissue, Percutaneous Approach (ICD-10-PCS; 2018-03-06)
PROC: 3E0F7GC Introduction of Other Therapeutic Substance into Respiratory Tract, Via Natural or Artificial Opening (ICD-10-PCS; 2018-03-06)
DX: R06.02 Shortness of breath (principal); I10 Essential (primary) hypertension; E78.5 Hyperlipidemia, unspecified; E11.9 Type 2 diabetes mellitus without complications; J44.9 Chronic obstructive pulmonary disease, unspecified; M10.9 Gout, unspecified; I34.1 Nonrheumatic mitral (valve) prolapse; K21.9 Gastro-esophageal reflux disease without esophagitis; M95.9 Acquired deformity of musculoskeletal system, unspecified; M54.30 Sciatica, unspecified side; Z85.42 Personal history of malignant neoplasm of other parts of uterus; Z90.710 Acquired absence of both cervix and uterus; Z86.718 Personal history of other venous thrombosis and embolism; Z88.8 Allergy status to other drugs, medicaments and biological substances; Z79.82 Long term (current) use of aspirin
CPT/HCPCS: 36415; 71275-TC; 74177-TC; 78452-TC; 80048; 80053; 80061; 82550; 83721; 83735; 84100; 84443; 84484; 85025; 85610; 93005; 93010; 93017; 93970-TC; 99285-25; A9502; G0378; J7030

== ENCOUNTER 2019-01-22 17:14 | Observation (INO) | payer OTHER ==
[2019-01-22 17:32] VITALS: BMI 49.5
--- NOTE | 2019-01-22 17:33 | PDOC ---
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 denies cp, n/v Pertinent PE findings: stable, NAD, non-focal I have ordered the following: head CT, labs The patient will proceed to the ED for further evaluation. I have performed a brief in-person evaluation of this patient. Discharge Disposition - Diagnosis Dizziness - Referrals - Patient Instructions - Post Discharge Activity
[2019-01-22 18:29] LABS: BASO % 0.5 % (0-2.0); EOS % 2.3 % (0-4.5); HEMATOCRIT 42.6 % (32.4-45.2); HEMOGLOBIN 13.9 GM/dL (10.7-15.3); LYMPH % 25.4 % (8-40); MCH 29.3 pg (25.7-33.7); MCHC 32.7 g/dl (32.0-36.0); MEAN CELL VOLUME 89.7 fl (80-96); MEAN PLT VOLUME 8.4 fl (7.5-11.1); NEUT % 65.8 % (42.8-82.8); PLATELET COUNT 331 K/MM3 (134-434); RBC 4.75 M/mm3 (3.60-5.2); RDW 14.4 % (11.6-15.6); WHITE BLOOD COUNT 13.1 K/mm3 (4.0-10.0)
[2019-01-22 18:54] LABS: INR 0.87 (0.83-1.09); PROTHROMBIN TIME (PATIENT) 10.2 SEC (9.7-13.0)
[2019-01-22 18:57] LABS: ACTIVATED PTT 32.6 SECONDS (25.2-36.5); ALBUMIN 4.1 g/dl (3.4-5.0); ALK PHOS 113 U/L (45-117); ANION GAP 5 MMOL/L (8-16); BILIRUBIN,TOTAL 0.3 mg/dL (0.2-1); BLOOD UREA NITROGEN 19.5 mg/dL (7-18); CALCIUM 9.1 mg/dL (8.5-10.1); CHLORIDE 104 mmol/L (98-107); CO2 29 mmol/L (21-32); CREATININE 0.9 mg/dL (0.55-1.3); GLUCOSE,RANDOM 108 mg/dL (74-106); POTASSIUM 3.8 mmol/L (3.5-5.1); SGOT/AST 9 U/L (15-37); SGPT/ALT 25 U/L (13-61); SODIUM 138 mmol/L (136-145); TOT PROT 7.2 g/dl (6.4-8.2)
--- NOTE | 2019-01-22 19:50 | PDOC ---
*Physical Exam - Vital Signs Last Vital Signs Temp Pulse Resp BP Pulse Ox 98.3 F 82 18 137/72 98 01/22/19 17:28 01/22/19 17:28 01/22/19 17:28 01/22/19 17:28 01/22/19 17:28 - Physical Exam Comments: 01/22/19 19:51 01/22/19 20:33 01/22/19 20:42 General Appearance: Yes: Obese. No: Apparent Distress HEENT: positive: EOMI, BECKY, Normal Voice. negative: Pharyngeal Erythema, Sinus Tenderness Neck: positive: Trachea midline, Supple. negative: Tender, Carotid bruit, Lymphadenopathy (R), Lymphadenopathy (L) Respiratory/Chest: positive: Lungs Clear, Normal Breath Sounds. negative: Respiratory Distress, Accessory Muscle Use, Rales, Rhonchi, Wheezing Cardiovascular: positive: Regular Rhythm, Regular Rate, S1, S2, Systolic Murmur Gastrointestinal/Abdominal: positive: Normal Bowel Sounds. negative: Tender, Guarding, Rebound, Tenderness Musculoskeletal: negative: CVA Tenderness Extremity: positive: Normal Capillary Refill, Normal Range of Motion, Pedal Edema (trace LE edema bilaterally). 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, Fully Oriented, Alert, Normal Mood/ Affect, Motor Strength 5/5 Deep Tendon Reflexes: Knee (L): 2+, Knee (R): 2+, Bicep (L): 2+, Bicep (R): 2+, Tricep (L): 2+, Tricep (R): 2+ ED Treatment Course - LABORATORY CBC & Chemistry Diagram: 01/22/19 18:00 01/22/19 18:00 - ADDITIONAL ORDERS Additional order review: Laboratory Results 01/22/19 01/22/19 18:00 18:00 PT with INR 10.20 INR 0.87 PTT (Actin FS) 32.6 Sodium 138 Potassium 3.8 Chloride 104 Carbon Dioxide 29 Anion Gap 5 L BUN 19.5 H Creatinine 0.9 Est GFR (CKD-EPI)AfAm 81.69 Est GFR (CKD-EPI)NonAf 70.48 Random Glucose 108 H Calcium 9.1 Total Bilirubin 0.3 AST 9 L ALT 25 Alkaline Phosphatase 113 Creatine Kinase 91 Troponin I < 0.02 Total Protein 7.2 Albumin 4.1 11/21/19 18:00 RBC 4.75 MCV 89.7 MCHC 32.7 RDW 14.4 MPV 8.4 Neutrophils % 65.8 Lymphocytes % 25.4 D Monocytes % 6.0 Eosinophils % 2.3 Basophils % 0.5 ED Progress Note - Progress Note Progress Note: 58 yof with PMHx HTN, HLD, DM (diet controlled), COPD, Asthma, Gout, MVP, GERD, Fibromyalgia, Sciatica, Endometrial Cancer s/p Lap hysterectomy in 12/2017, morbid obesity, ?remote h/o DVT (never been on anticoagulation per patient) presenting to the ED from home after becoming dizzy at home and falling 3 times. Per the patient she was at home in her usual state of health hanging a shower curtain in her bathroom when she suddenly felt the room was spinning. She fell into the shower and cannot recall if she hit her head but denies any LOC. She then got herself out of the shower and fell backwards hitting the wall of her shower. She used furniture in her house to brace herself as she walked from the bathroom to the living room where she fell for a third time, into the couch. The pt states that she felt the room was spinning around her and was still spinning even with her eyes closed, as though she was drunk. Per the patient's at the bedside, he arrived home shortly after the episode began and he noted the patient seemed unsteady and was slurring her speach, she also seemed disoriented and forgetful. While waiting in the ED the patient's sx improved and by the time I had gone to evaluate her her speech sx had completely resolved, she was no longer forgetful/ confused, however she stated she still felt a bit dizzy. On ROS pt denies CP, SOB, heart palpitations, abdominal pain, nausea, vomiting, abdominal pain, constipation, diarrhea, dysuria, weakness, numbness in her hands / feet, hot/ cold intolerance. Pt endorses L sided HART, and blurry vision/ seeing halos (chronic and unchanged from previous). EKG with RBBB unchanged from previous in March 2018 01/22/19 20:42 01/22/19 20:45 01/22/19 20:46 Medical Decision Making - Medical Decision Making 01/22/19 20:48 Pt is a 58y/o F with pmhx of HTN, HLD, DM, COPD, Asthma, gout, GERD, mitral valve prolapse, fibromyalgia, sciatica, endometrial ca s/p laproscopic hysterectomy in dec 2017, morbid obestiy, and remote DVT (unclear hx, never on a /c) who presents to the ED after becoming extremely dizzy at home and falling three times. Per the patient's family she was also slurring her speech and seemed confused and forgetful. Differential includes CVA vs. TIA vs orthostatic hypotension vs vertigo. -CBC - CMP - Trop - EKG - Head CT Initial work up revealed EKG unchanged from previous in addition to negative troponin. Head CT without any evidence of acute pathology or hemorrhage, orthostatic vital signs were negative. - Sittin/95 HR 81 - Standing 151/82 HR 91 pt denied feeling more dizzy upon standing, negative romberg sign - Pt likely to be admitted for further w/u of dizziness/ falls Discharge - Discharge Information Clinical Impression/Diagnosis: Dizziness - Follow up/Referral Referrals: Radhika العلي MD [Primary Care Provider] - - Patient Discharge Instructions - Post Discharge Activity
--- NOTE | 2019-01-22 20:21 | PN ---
Teaching Attending Note Name of Resident: Irma Kolb ATTENDING PHYSICIAN STATEMENT I saw and evaluated the patient. I reviewed the resident's note and discussed the case with the resident. I agree with the resident's findings and plan as documented. SUBJECTIVE: Patient is a 58 year old woman with history of HTN, HLD, TIA, Diet-controlled DM , Sciatica, GERD, MVP, Fibromyalgia, Remote DVT (never anticoagulated), COPD, Gout and Endometrial cancer (s/p total hysterectomy 12/2017) presenting from home after becoming dizzy and falling 3 times. Per the patient she was at home in her usual state of health hanging a shower curtain in her bathroom when she suddenly felt the room was spinning. She fell into the shower and cannot recall if she hit her head but denies any LOC. She then got herself out of the shower and fell backwards hitting the wall of her shower. She used furniture in her house to brace herself as she walked from the bathroom to the living room where she fell for a third time, into the couch. Patient states she felt the room was spinning around even with her eyes closed, as though she was drunk. Per the patient's at the bedside, he arrived home shortly after the episode began and he noted the patient seemed unsteady and was slurring her speech. She also seemed disoriented and forgetful. While waiting in the ER her symptoms and her speech symptoms resolved but she still felt a little dizzy. Had URi symptoms about 2 weeks ago. Has FH of vertigo. OBJECTIVE: Alert and not orthostatic Vital Signs Period Temp Pulse Resp BP Sys/Rodgers Pulse Ox Last 24 Hr 98.3 F 82 18 137/72 98 HEENT: No Jaundice, eye redness or discharge, PERRLA, EOMI. Normocephalic, atraumatic. External ears are normal and hearing is grossly intact. No nasal discharge. Neck: Supple, nontender. No palpable adenopathy or thyromegaly. No JVD Chest: Good effort. Clear to auscultation and percussion. Heart: Regular. No S3, rub or murmur Abdomen: Not distended, soft, nontender and no HSM. No rebound or guarding. Normal bowel sounds. Ext: Peripheral pulses intact. No leg edema. Skin: Warm and dry. No petechiae, rash or ecchymosis. Neuro: Alert. Oriented x3. CN 2-12 grossly intact. Sensation grossly intact in all four extremities and DTR are symmetric. Normal gait. Psych: Appropriate mood and affect. Good insight. Home Medications Medication Instructions Recorded Salmeterol/Fluticasone [Advair 1 inh IH BID 12/24/12 500Mcg/50Mcg -] Tiotropium [place] [Spiriva] 1 inh PO DAILY 12/26/12 Amlodipine Besylate 10 mg PO DAILY 03/09/15 Colchicine 0.6 mg PO BID 03/09/15 Amitriptyline HCl [Elavil -] 50 mg PO HS 01/26/18 Doxazosin Mesylate [Cardura -] 2 mg PO DAILY 01/26/18 Theophylline Anhydrous [Ronal-24] 0.5 tab PO BID 01/26/18 Aspirin [ASA -] 81 mg PO DAILY #30 tab.chew 01/28/18 Diclofenac Sodium 25 mg PO DAILY PRN 03/06/18 Nitroglycerin Sublingual 0.4 mg SL DAILY PRN 03/06/18 [Nitrostat -] Rosuvastatin [Crestor -] 10 mg PO DAILY 03/06/18 Abnormal Lab Results 01/22/19 01/22/19 18:00 18:00 WBC 13.1 H Absolute Neuts (auto) 8.6 H Anion Gap 5 L BUN 19.5 H Random Glucose 108 H AST 9 L ASSESSMENT AND PLAN: 1. Syncope - Etiology unclear. Patient now asymptomatic. No acute abnormality on head CT. Recently had extensive neurologic workup for ?TIA-like symptoms. EKG shows NSR with IRBBB and no ischemic changes. Will admit to telemetry, implement fall precautions, consult PT and hydrate gently. Will consult neurology to guide further evaluation. Leukocytosis is a concern - CXR and Urinalysis ordered stat. Will continue comprehensive care for all of patients comorbid conditions. 2. Diet controlled DM For now, we will hold the home diabetes drugs and implement sliding scale insulin regimen. Provide comprehensive diabetes care with patient teaching and counseling about the importance of adherence to prescribed diabetes regimen, euglycemia, eye care and foot care. 3. Morbid Obesity Counseled on the risks associated with obesity. Will provide patient all the necessary assistance, counseling and positive reinforcement to facilitate weight loss. Consult manufacturing lab technician. 4. Hypertension - Restart suitable outpatient antihypertensive drugs when clinically appropriate. Revise regimen to ensure [id number] excellent BP control and correctional counselor patient on the injurious effects of uncontrolled hypertension. Nonpharmacologic measures to control hypertension like weight loss , salt restriction and exercise discussed. Importance of adherence to treatment regimen and attainment of normotension emphasized. 5. DVT prophylaxis - Lovenox 40 mg SQ q 12 hours. 6. Advance directives - Full code
--- NOTE | 2019-01-22 20:24 | PDOC ---
Attending Attestation - Resident Resident Name: Pati Madera - ED Attending Attestation I have performed the following: I have examined & evaluated the patient, The case was reviewed & discussed with the resident, I agree w/resident's findings & plan, Exceptions are as noted - HPI HPI: 01/22/19 22:49 Agree with resident HPI - Physicial Exam PE: 01/22/19 22:49 Agree with resident exam - Medical Decision Making 01/22/19 22:50 Dizziness w/ pre-sycnope?/syncope? Differential includes cva/tia, vs vertigo, electrolyte derangment, dysryhtmia, less likely infectious f/u labs, imaging will need admission for further investigation of etiology and monitoring
--- NOTE | 2019-01-22 21:27 | PDOC ---
History of Present Illness - General Chief Complaint: Headache Stated Complaint: STROKE Time Seen by Provider: 01/22/19 17:25 - History of Present Illness Initial Comments: 58 yof with PMHx HTN, HLD, DM (diet controlled), COPD, Asthma, Gout, MVP, GERD, Fibromyalgia, Sciatica, Endometrial Cancer s/p Lap hysterectomy in 12/2017, morbid obesity, ?remote h/o DVT (never been on anticoagulation per patient) presenting to the ED from home after becoming dizzy at home and falling 3 times. Per the patient she was at home in her usual state of health hanging a shower curtain in her bathroom when she suddenly felt the room was spinning. She fell into the shower and cannot recall if she hit her head but denies any LOC. She then got herself out of the shower and fell backwards hitting the wall of her shower. She used furniture in her house to brace herself as she walked from the bathroom to the living room where she fell for a third time, into the couch. The pt states that she felt the room was spinning around her and was still spinning even with her eyes closed, as though she was drunk. Per the patient's at the bedside, he arrived home shortly after the episode began and he noted the patient seemed unsteady and was slurring her speach, she also seemed disoriented and forgetful. While waiting in the ED the patient's sx improved and by the time I had gone to evaluate her her speech sx had completely resolved, she was no longer forgetful/ confused, however she stated she still felt a bit dizzy. On ROS pt denies CP, SOB, heart palpitations, abdominal pain, nausea, vomiting, abdominal pain, constipation, diarrhea, dysuria, weakness, numbness in her hands / feet, hot/ cold intolerance. Pt endorses L sided HART, and blurry vision/ seeing halos (chronic and unchanged from previous). EKG with RBBB unchanged from previous in March 2018 01/22/19 21:27 Past History - Travel Traveled outside of the country in the last 30 days: No Close contact w/someone who was outside of country & ill: No - Past Medical History Allergies/Adverse Reactions: Allergies Allergy/AdvReac Type Severity Reaction Status Date / Time montelukast sodium Allergy Mild Itching Verified 01/22/19 17:24 [From Singulair] pramipexole [From Mirapex] Allergy Verified 01/22/19 17:24 topiramate [From Topamax] AdvReac Verified 01/22/19 17:24 NALDECON AdvReac Mild NOSE BLEEDS Uncoded 01/22/19 17:24 Home Medications: Ambulatory Orders Salmeterol/Fluticasone [Advair 500Mcg/50Mcg -] 1 inh IH BID 12/24/12 Tiotropium [place] [Spiriva] 1 inh PO DAILY 12/26/12 Amlodipine Besylate 10 mg PO DAILY 03/09/15 Colchicine 0.6 mg PO BID 03/09/15 Amitriptyline HCl [Elavil -] 50 mg PO HS 01/26/18 Doxazosin Mesylate [Cardura -] 2 mg PO DAILY 01/26/18 Theophylline Anhydrous [Ronal-24] 0.5 tab PO BID 01/26/18 Aspirin [ASA -] 81 mg PO DAILY #30 tab.chew 01/28/18 Diclofenac Sodium 25 mg PO DAILY PRN 03/06/18 Nitroglycerin Sublingual [Nitrostat -] 0.4 mg SL DAILY PRN 03/06/18 Rosuvastatin [Crestor -] 10 mg PO DAILY 03/06/18 Anemia: No Asthma: Yes Cancer: Yes (endometrial ca) Cardiac Disorders: Yes (MVP) CVA: Yes COPD: Yes CHF: No DVT: Yes Dementia: No Diabetes: Yes (STATES "YES", ON DIET CONTROLLED) GI Disorders: Yes (GERD 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) Disorders: Yes (Endometrial CA s/p Hysterectomy 12/19) HTN: Yes Hypercholesterolemia: Yes Liver Disease: No Seizures: No Thyroid Disease: No Other medical history: complex migranies - Surgical History Abdominal Surgery: No Appendectomy: No Cardiac Surgery: No Cholecystectomy: No Lung Surgery: No Neurologic Surgery: No Orthopedic Surgery: No - Immunization History Immunization Up to Date: Yes - Psycho Social/Smoking Cessation Hx Smoking History: Never smoked Have you smoked in the past 12 months: No Information on smoking cessation initiated: No Hx Alcohol Use: No Drug/Substance Use Hx: No Substance Use Type: None Hx Substance Use Treatment: No Review of Systems - Review of Systems Able to Perform ROS?: Yes Is the patient limited Thai proficient: No Constitutional: No: Chills, Fever, Loss of Appetite, Malaise, Weakness HEENTM: Yes: Eye Pain. No: Recent change in vision, Ear Pain, Tinnitus, Hearing Loss Respiratory: Yes: Shortness of Breath (pt says she has chronic SOB 2/2 to her COPD but its improved with CPAP) Cardiac (ROS): No: Chest Pain, Palpitations ABD/GI: No: Abdominal Distended, Constipated, Diarrhea, Nausea, Vomiting, Abdominal cramping : No: Burning, Dysuria Musculoskeletal: No: Back Pain, Muscle Weakness Neurological: Yes: Headache, Unsteady Gait, Dizziness. No: Numbness, Weakness Endocrine: No: Excessive Sweating, Intolerance to Cold, Intolerance to Heat All Other Systems: Reviewed and Negative *Physical Exam - Vital Signs Last Vital Signs Temp Pulse Resp BP Pulse Ox 98.3 F 82 18 137/72 98 01/22/19 17:28 01/22/19 17:28 01/22/19 17:28 01/22/19 17:28 01/22/19 17:28 - Physical Exam General Appearance: Yes: Obese. No: Apparent Distress HEENT: positive: EOMI, BECKY, Normal Voice, Pharynx Normal. negative: Photophobia, Sinus Tenderness Neck: positive: Trachea midline, Supple. negative: Tender, Carotid bruit Respiratory/Chest: positive: Lungs Clear, Normal Breath Sounds. negative: Respiratory Distress, Accessory Muscle Use, Crackles, Rales, Wheezing Cardiovascular: positive: Regular Rhythm, Regular Rate, S1, S2, Systolic Murmur Gastrointestinal/Abdominal: positive: Normal Bowel Sounds, Soft. negative: Organomegaly, Guarding, Rebound, Tenderness Musculoskeletal: positive: Normal Inspection. negative: CVA Tenderness, Vertebral Tenderness Extremity: positive: Normal Capillary Refill, Normal Range of Motion, Pedal Edema (bilateral trace LE edema) Integumentary: positive: Normal Color, Dry, Warm. 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, Fully Oriented, Alert, Normal Mood/ Affect, Motor Strength /5 ED Treatment Course - LABORATORY CBC & Chemistry Diagram: 01/22/19 18:00 01/22/19 18:00 - ADDITIONAL ORDERS Additional order review: Laboratory Results 01/22/19 01/22/19 18:00 18:00 PT with INR 10.20 INR 0.87 PTT (Actin FS) 32.6 Sodium 138 Potassium 3.8 Chloride 104 Carbon Dioxide 29 Anion Gap 5 L BUN 19.5 H Creatinine 0.9 Est GFR (CKD-EPI)AfAm 81.69 Est GFR (CKD-EPI)NonAf 70.48 Random Glucose 108 H Calcium 9.1 Total Bilirubin 0.3 AST 9 L ALT 25 Alkaline Phosphatase 113 Creatine Kinase 91 Troponin I < 0.02 Total Protein 7.2 Albumin 4.1 01/22/19 18:00 RBC 4.75 MCV 89.7 MCHC 32.7 RDW 14.4 MPV 8.4 Neutrophils % 65.8 Lymphocytes % 25.4 D Monocytes % 6.0 Eosinophils % 2.3 Basophils % 0.5 - RADIOLOGY Radiology Studies Ordered: Category Date Time Status CHEST X-RAY PORTABLE* [RAD] Stat Radiology 01/22/19 21:21 Ordered Medical Decision Making - Medical Decision Making 01/22/19 21:28 Pt is a 58y/o F with pmhx of HTN, HLD, DM, COPD, Asthma, gout, GERD, mitral valve prolapse, fibromyalgia, sciatica, endometrial ca s/p laproscopic hysterectomy in dec 2017, morbid obestiy, and remote DVT (unclear hx, never on a /c) who presents to the ED after becoming extremely dizzy at home and falling three times. Per the patient's family she was also slurring her speech and seemed confused and forgetful. Differential includes CVA vs. TIA vs orthostatic hypotension vs vertigo. -CBC - CMP - Trop - EKG - Head CT Initial work up revealed EKG unchanged from previous in addition to negative troponin. Head CT without any evidence of acute pathology or hemorrhage, orthostatic vital signs were negative. - Sittin/95 HR 81 - Standing 151/82 HR 91 pt denied feeling more dizzy upon standing, negative romberg sign - Pt likely to be admitted for further w/u of dizziness/ falls 01/22/19 21:38 Pt with mild leukocytosis, will obtain CXR and f/u UA Pt discussed with [facility] admitting, pt to be admited to tele obs Discharge - Discharge Information Clinical Impression/Diagnosis: Dizziness - Follow up/Referral Referrals: Radhika العلي MD [Primary Care Provider] - - Patient Discharge Instructions - Post Discharge Activity
[2019-01-22] MEDS ORDERED: MECLIZINE HCL 25 MG TABLET (FP) PO PRN (22:37)
--- NOTE | 2019-01-22 22:49 | HP ---
CHIEF COMPLAINT: dizziness PCP: Dr. Bach ([facility]) Pulm: Dr. Walton ([facility]) Cardio: Dr. Guevara ([facility] [place] Oncologist: Dr. Igor Richardson ([facility]) Warehouse Receiving Supervisor: Dr. Tavarez ([facility] [place]) HISTORY OF PRESENT ILLNESS: Patient is a 57 year old female with past medical history of HTN, HLD, DM, COPD , Asthma, Gout, MVP, GERD, Fibromyalgia, sciatica, cluster migraines, endometrial cancer s/p hysterectomy, presented to the ED due to dizziness and falls x3 today. Patient reported she has had history of frequent falls due to dizziness in the past, for years now, but noted today, her symptoms felt worse and lasted for hours. Patient described her symptoms that started around 2 pm today with the "room spinning around her" as she stood up to place shower curtains. The dizziness persisted and she subsequently fell into the shower. Denies any LOC or head trauma. Patient then got back up, and fell again. She then went into the living room where she felt dizzy and fell into the couch. Patient reports even seated, her dizziness persisted, with the room spinning around her, with eyes open or closed. Soon after, her and son arrived, and they noted patient was incoherent with slurring of speech. They then brought her to the clinic, where they were told to immediately bring patient to the ED. Upon arrival at the Ed, patient's symptoms were better, and she just reported some mild dizziness. Of note, patient recently had an URTI about 2 weeks ago, and so she missed her appointment with the neurologist. She also reported that a few years ago, she described the same symptoms to her PCP over the phone, and was told that she had vertigo and Meclizine was prescribed. But patient never took the medication. About a year ago, patient was admitted for TIA workup. Head CT, Brain MRI, Echo and Carotid doppler were all unremarkable. Patient denies any fever, chills, headache, hearing loss, tinnitus, blurring of vision, cough, chest pain, SOB, abdominal pain, diarrhea, urinary symptoms. ER course was notable for: (1)Head CT - no acute intracranial pathology (2) (3) Recent Travel:denies PAST MEDICAL HISTORY: HTN HLD DM COPD Asthma Gout MVP GERD Fibromyalgia sciatica endometrial cancer cluster migraines PAST SURGICAL HISTORY: Endometrial Cancer s/p Total Hysterectomy (12/2017) Rotator Cuff (03/19) Torn R Meniscus (12/14) () Social History: Smoking: Denies Alcohol: Denies Drugs: Denies Occupation: None Residence: Home with Ambulation: Canes b/l Family history Mother - vertigo, stroke Father- heart disease Allergies montelukast sodium [From Singulair] Allergy (Mild, Verified 01/22/19 17:24) Itching pramipexole [From Mirapex] Allergy (Verified 01/22/19 17:24) topiramate [From Topamax] Adverse Reaction (Verified 01/22/19 17:24) NALDECON Adverse Reaction (Mild, Uncoded 01/22/19 17:24) NOSE BLEEDS HOME MEDICATIONS: Home Medications Medication Instructions Recorded Salmeterol/Fluticasone [Advair 1 inh IH BID 12/24/12 500Mcg/50Mcg -] Tiotropium [place] [Spiriva] 1 inh PO DAILY 12/26/12 Amlodipine Besylate 10 mg PO DAILY 03/09/15 Colchicine 0.6 mg PO BID 03/09/15 Amitriptyline HCl [Elavil -] 50 mg PO HS 01/26/18 Doxazosin Mesylate [Cardura -] 2 mg PO DAILY 01/26/18 Theophylline Anhydrous [Ronal-24] 0.5 tab PO BID 01/26/18 Aspirin [ASA -] 81 mg PO DAILY #30 tab.chew 01/28/18 Diclofenac Sodium 25 mg PO DAILY PRN 03/06/18 Nitroglycerin Sublingual 0.4 mg SL DAILY PRN 03/06/18 [Nitrostat -] Rosuvastatin [Crestor -] 10 mg PO DAILY 03/06/18 REVIEW OF SYSTEMS CONSTITUTIONAL: Absent: fever, chills, diaphoresis, generalized weakness, malaise, loss of appetite, weight change HEENT: Absent: rhinorrhea, nasal congestion, throat pain, throat swelling, difficulty swallowing, mouth swelling, ear pain, eye pain, visual changes CARDIOVASCULAR: Absent: chest pain, syncope, palpitations, irregular heart rate, lightheadedness , peripheral edema RESPIRATORY: Absent: cough, shortness of breath, dyspnea with exertion, orthopnea, wheezing, stridor, hemoptysis GASTROINTESTINAL: Absent: abdominal pain, abdominal distension, nausea, vomiting, diarrhea, constipation, melena, hematochezia GENITOURINARY: Absent: dysuria, frequency, urgency, hesitancy, hematuria, flank pain, genital pain MUSCULOSKELETAL: Absent: myalgia, arthralgia, joint swelling, back pain, neck pain SKIN: Absent: rash, itching, pallor HEMATOLOGIC/IMMUNOLOGIC: Absent: easy bleeding, easy bruising, lymphadenopathy, frequent infections ENDOCRINE: Absent: unexplained weight gain, unexplained weight loss, heat intolerance, cold intolerance NEUROLOGIC: dizziness Absent: headache, focal weakness or paresthesias, unsteady gait, seizure, mental status changes, bladder or bowel incontinence PSYCHIATRIC: Absent: anxiety, depression, suicidal or homicidal ideation, hallucinations. PHYSICAL EXAMINATION Vital Signs - 24 hr 01/22/19 17:28 Temperature 98.3 F Pulse Rate 82 Respiratory 18 Rate Blood Pressure 137/72 O2 Sat by Pulse 98 Oximetry (%) GENERAL: Awake, alert, and fully oriented, in no acute distress. HEAD: Normal with no signs of trauma. EYES: PERRLA, EOMI, sclera anicteric, conjunctiva clear. EARS, NOSE, THROAT: Moist mucous membranes. NECK: Normal range of motion, supple without lymphadenopathy. LUNGS: Breath sounds equal, clear to auscultation bilaterally. HEART: Regular rate and rhythm, normal S1 and S2. ABDOMEN: Soft, nontender, not distended, normoactive bowel sounds. MUSCULOSKELETAL: Normal range of motion at all joints. UPPER EXTREMITIES: 2+ pulses, warm, well-perfused. No peripheral edema. LOWER EXTREMITIES: 2+ pulses, warm, well-perfused. No peripheral edema. NEUROLOGICAL: Cranial nerves II-XII intact. Motor strength 5/5. Sensation intact. No dysmetria, no dysdiadochokinesia. Walks with cane. PSYCHIATRIC: Cooperative. Good eye contact. Appropriate mood and affect. SKIN: Warm, dry, normal turgor. Laboratory Results - last 24 hr 01/22/19 01/22/19 01/22/19 18:00 18:00 18:00 WBC 13.1 H RBC 4.75 Hgb 13.9 Hct 42.6 MCV 89.7 MCH 29.3 MCHC 32.7 RDW 14.4 Plt Count 331 D MPV 8.4 Absolute Neuts (auto) 8.6 H Neutrophils % 65.8 Lymphocytes % 25.4 D Monocytes % 6.0 Eosinophils % 2.3 Basophils % 0.5 Nucleated RBC % 0 PT with INR 10.20 INR 0.87 PTT (Actin FS) 32.6 Sodium 138 Potassium 3.8 Chloride 104 Carbon Dioxide 29 Anion Gap 5 L BUN 19.5 H Creatinine 0.9 Est GFR (CKD-EPI)AfAm 81.69 Est GFR (CKD-EPI)NonAf 70.48 Random Glucose 108 H Calcium 9.1 Total Bilirubin 0.3 AST 9 L ALT 25 Alkaline Phosphatase 113 Creatine Kinase 91 Troponin I < 0.02 Total Protein 7.2 Albumin 4.1 ASSESSMENT/PLAN: Patient is a 57 year old female with past medical history of HTN, HLD, DM, COPD , Asthma, Gout, MVP, GERD, Fibromyalgia, sciatica, cluster migraines, endometrial cancer s/p hysterectomy, presented to the ED due to dizziness and falls x3 today. #Dizziness, unclear etiology -orthostatics negative upon arrival at the ED, patient currently asymptomatic -TIA work up done in 01/2018 including Brain MRI, carotid US and echo and stress test all unremarkable -patient with leukocytosis, will order CXR and UA -Will consult neurology to guide further management -will give Meclizine PRN for possible BPPV -gentle hydration -tele monitoring -fall precautions -neurochecks -physical therapy #Hypertension -continue home medications #Hyperlipidemia -continue home medications #COPD/Asthma -continue home medications #DM -Not on any home medications -will order A1c -BGM ACHS -Insulin sliding scale implemented #FEN -IV NS @75cc/hr -electrolytes wnl, routine bmp monitoring -Diabetic/sodium restricted diet #Prophylaxis -Lovenox 40mg sq daily #Disposition -full code -tele obs Visit type - Emergency Visit Emergency Visit: Yes ED Registration Date: 01/22/19 Care time: The patient presented to the Emergency Department on the above date and was hospitalized for further evaluation of their emergent condition. - New Patient This patient is new to me today: Yes Date on this admission: 01/22/19 - Critical Care Critical Care patient: No ATTENDING PHYSICIAN STATEMENT I saw and evaluated the patient. I reviewed the resident's note and discussed the case with the resident. I agree with the resident's findings and plan as documented. SUBJECTIVE: OBJECTIVE: ASSESSMENT AND PLAN:
[2019-01-22] MEDS ORDERED: SODIUM CHLORIDE 1,000 ML IV SCH (23:45)
[2019-01-23 00:33] LABS: EPI CELLS 2.2 /HPF (0-5/HPF); HYALINE CASTS 0 /lpf (0-8); PH,URINE 6.5 (5.0-8.0); URINE APPEARANCE CLEAR; URINE BACTERIA 39.7 /hpf (NEGATIVE); URINE BILIRUBIN NEGATIVE (NEGATIVE); URINE COLOR YELLOW; URINE GLUCOSE (UA) NEGATIVE (NEGATIVE); URINE KETONE NEGATIVE (NEGATIVE); URINE LEUK ESTERASE TRACE (NEGATIVE); URINE NITRITE NEGATIVE (NEGATIVE); URINE PROTEIN NEGATIVE (NEGATIVE); URINE RBC 0 /hpf (0-4); URINE UROBILINOGEN 0.2 mg/dL (0.2-1.0); URINE WBC 2 /hpf (0-5)
[2019-01-23 07:42] LABS: BASO % 0.3 % (0-2.0); EOS % 2.2 % (0-4.5); HEMATOCRIT 39.8 % (32.4-45.2); HEMOGLOBIN 13.4 GM/dL (10.7-15.3); MCH 30.3 pg (25.7-33.7); MCHC 33.7 g/dl (32.0-36.0); MEAN PLT VOLUME 8.3 fl (7.5-11.1); MONO % 6.3 % (3.8-10.2); NEUT % 60.2 % (42.8-82.8); PLATELET COUNT 279 K/MM3 (134-434); RBC 4.42 M/mm3 (3.60-5.2); RDW 14.2 % (11.6-15.6); WHITE BLOOD COUNT 10.2 K/mm3 (4.0-10.0)
[2019-01-23] MEDS: INSULIN SLIDING SCALE (NOVOLOG) 1 VIAL SQ SCH ×3 (07:50→16:36)
[2019-01-23 08:15] LABS: BLOOD UREA NITROGEN 14.2 mg/dL (7-18); CALCIUM 8.8 mg/dL (8.5-10.1); CREATININE 0.8 mg/dL (0.55-1.3); MAGNESIUM 2.1 mg/dL (1.8-2.4)
[2019-01-23] MEDS ORDERED: ALLOPURINOL 100 MG TABLET (FP) ONE (08:49)
[2019-01-23] MEDS ORDERED: ASPIRIN 81 MG CHEWABLE TABLETS ONE (08:49)
[2019-01-23] MEDS ORDERED: ENOXAPARIN NA (PORCINE) 40 MG/0.4 ML DISP.SYRIN SQ ONE (08:49)
[2019-01-23] MEDS ORDERED: COLCHICINE 0.6 MG CAP ONE (08:49)
[2019-01-23] MEDS ORDERED: amLODIPine BESYLATE 5 MG TABLET (FP) ONE (08:49)
[2019-01-23] MEDS ORDERED: PATIENT'S OWN MEDICATION (NON-FORMULARY) (Salmeterol/Fluticasone [Advair 500mcg/50mcg -] 1 IH SCH (10:00)
[2019-01-23] MEDS ORDERED: TIOTROPIUM BROMIDE 2.5 MCG (SPIRIVA) RESPIMAT INHALER IH SCH (10:00)
[2019-01-23] MEDS ORDERED: ALLOPURINOL 100 MG TABLET (FP) PO SCH (10:00)
[2019-01-23] MEDS ORDERED: ASPIRIN 81 MG CHEWABLE TABLETS PO SCH (10:00)
[2019-01-23] MEDS ORDERED: BUDESONIDE/FORMETEROL FUMARATE 80/4.5 mcg INHALER IH SCH (10:00)
[2019-01-23] MEDS ORDERED: ENOXAPARIN NA (PORCINE) 40 MG/0.4 ML DISP.SYRIN SQ SCH (10:00)
[2019-01-23] MEDS ORDERED: amLODIPine BESYLATE 5 MG TABLET (FP) PO SCH (10:00)
[2019-01-23] MEDS ORDERED: PATIENT'S OWN MEDICATION (NON-FORMULARY) (Colchicine [Colchicine] 0.6 MG) PO SCH (10:00)
[2019-01-23] MEDS ORDERED: COLCHICINE 0.6 MG CAP PO SCH (10:00)
[2019-01-23] MEDS ORDERED: PATIENT'S OWN MEDICATION (NON-FORMULARY) (Tiotropium Bromide [Spiriva] 1 INH) PO SCH (10:00)
--- NOTE | 2019-01-23 11:31 | ECHO ---
Name: KATIE LUCERO, TACHO Exam:Adult Echocardiogram Study Date: 01/23/2019 10:26 AM Age: 58 yrs Reason For Study: SYNCOPE MMode/2D Measurements & Calculations IVSd: 1.1 cm Ao root diam: 2.7 cm LVIDd: 4.3 cm LA dimension: 2.8 cm LVIDs: 2.8 cm LVPWd: 1.0 cm LVPWs: 1.3 cm EDV(Teich): 84.9 ml ESV(Teich): 29.8 ml LVOT diam: 1.7 cm RV S Josr: 13.7 cm/sec Doppler Measurements & Calculations MV E max josr: 57.7 cm/sec Ao V2 max: 178.5 cm/sec MV A max josr: 86.8 cm/sec Ao max P.8 mmHg MV E/A: 0.66 LESA(V,D): 1.5 cm2 MV dec time: 0.25 sec LV V1 max P.4 mmHg TR max josr: 255.2 cm/sec LV V1 max: 115.9 cm/sec TR max P.0 mmHg PA V2 max: 118.8 cm/sec Med Peak E' Josr: 9.2 cm/sec PA max P.7 mmHg Med E/e': 6.2 Lat Peak E' Josr: 10.8 cm/sec Lat E/e': 5.4 Left Ventricle Left ventricular systolic function is normal. Ejection Fraction = 55-60%. The transmitral spectral Do ppler flow pattern is suggestive of impaired LV relaxation. Right Ventricle The right ventricle is normal in size and function. Atria Normal left and right atrial size and function. Mitral Valve The mitral valve is normal in structure and function. There is no mitral valve stenosis. Tricuspid Valve The tricuspid valve is normal in structure and function. There is mild tricuspid regurgitation. Right ventricular systolic pressure is normal. Aortic Valve There is mild aortic sclerosis.;. No hemodynamically significant valvular aortic stenosis. No aortic regurgitation is present. Pulmonic Valve The pulmonic valve is normal in structure and function. There is no pulmonic valvular stenosis. There is no pulmonic valvular regurgitation. Great Vessels The aortic root is normal size. Pericardium/Pleura Trivial pericardial effusion not hemodynamically significant. Interpretation Summary Left ventricular systolic function is normal. Ejection Fraction = 55-60%. The transmitral spectral Doppler flow pattern is suggestive of impaired LV relaxation. The right ventricle is normal in size and function. There is mild tricuspid regurgitation. Right ventricular systolic pressure is normal. There is mild aortic sclerosis.; Trivial pericardial effusion not hemodynamically significant MD Waldemar Mosqueda 01/23/2019 11:31 AM
--- NOTE | 2019-01-23 13:05 | EKG ---
Test Reason : Blood Pressure : / mmHG Vent. Rate : 083 BPM Atrial Rate : 083 BPM P-R Int : 182 ms QRS Dur : 112 ms QT Int : 396 ms P-R-T Axes : 034 037 038 degrees QTc Int : 465 ms NORMAL SINUS RHYTHM INCOMPLETE RIGHT BUNDLE BRANCH BLOCK WHEN COMPARED WITH ECG OF 06-MAR-2018 12:15, CRITERIA FOR ANTERIOR INFARCT ARE NO LONGER PRESENT Confirmed by PEPITO EDWARDS MD ([id number]) on 01/23/2019 1:05:05 PM Referred By: Confirmed By:PEPITO EDWARDS MD
--- NOTE | 2019-01-23 16:24 | PN ---
Physical Exam: SUBJECTIVE: Patient seen and examined at the bedside. The patient stated that she felt better and did not have any further dizziness on this presentation. Stated that she did not have any other focal neurological symptoms. Denied cp, sob, fever, chills, n/v/c/d, abd pain, numbness, tingling, weakness. OBJECTIVE: Vital Signs Period Temp Pulse Resp BP Sys/Rodgers Pulse Ox Last 24 Hr 98.0 F-98.3 F 68-82 14-18 134-147/72-85 98-100 GENERAL: The patient is awake, alert, and fully oriented, in no acute distress. HEAD: Normal with no signs of trauma. EYES: PERRL, extraocular movements intact, sclera anicteric, conjunctiva clear. No ptosis. NECK: Trachea midline, full range of motion, supple. LUNGS: Breath sounds equal, clear to auscultation bilaterally, no wheezes, no crackles, no accessory muscle use. HEART: Regular rate and rhythm, S1, S2 without murmur, rub. ABDOMEN: Soft, nontender, nondistended, normoactive bowel sounds, no guarding, no rebound, no masses. EXTREMITIES: 2+ pulses, warm, well-perfused, no edema. NEUROLOGICAL: Cranial nerves II through XII grossly intact. 5/5 muscle strength bilaterally, upper and lower extremities, Babinski negative. PSYCH: Normal mood, normal affect. SKIN: Warm, dry, normal turgor, no rashes or lesions noted. Laboratory Results - last 24 hr 01/22/19 01/22/19 01/22/19 18:00 18:00 18:00 WBC 13.1 H RBC 4.75 Hgb 13.9 Hct 42.6 MCV 89.7 MCH 29.3 MCHC 32.7 RDW 14.4 Plt Count 331 D MPV 8.4 Absolute Neuts (auto) 8.6 H Neutrophils % 65.8 Lymphocytes % 25.4 D Monocytes % 6.0 Eosinophils % 2.3 Basophils % 0.5 Nucleated RBC % 0 PT with INR 10.20 INR 0.87 PTT (Actin FS) 32.6 Sodium 138 Potassium 3.8 Chloride 104 Carbon Dioxide 29 Anion Gap 5 L BUN 19.5 H Creatinine 0.9 Est GFR (CKD-EPI)AfAm 81.69 Est GFR (CKD-EPI)NonAf 70.48 Random Glucose 108 H Hemoglobin A1c % Calcium 9.1 Phosphorus Magnesium Total Bilirubin 0.3 AST 9 L ALT 25 Alkaline Phosphatase 113 Creatine Kinase 91 Troponin I < 0.02 Total Protein 7.2 Albumin 4.1 TSH Urine Color Urine Appearance Urine pH Ur Specific [place] Urine Protein Urine Glucose (UA) Urine Ketones Urine Blood Urine Nitrite Urine Bilirubin Urine Urobilinogen Ur Leukocyte Esterase Urine WBC (Auto) Urine RBC (Auto) Urine Casts (Auto) U Epithel Cells (Auto) Urine Bacteria (Auto) 01/23/19 01/23/19 01/23/19 00:10 05:30 05:30 WBC 10.2 H RBC 4.42 Hgb 13.4 Hct 39.8 MCV 90.0 MCH 30.3 MCHC 33.7 RDW 14.2 Plt Count 279 MPV 8.3 Absolute Neuts (auto) 6.2 Neutrophils % 60.2 Lymphocytes % 31.0 D Monocytes % 6.3 Eosinophils % 2.2 Basophils % 0.3 Nucleated RBC % 0 PT with INR INR PTT (Actin FS) Sodium 140 Potassium 4.0 Chloride 106 Carbon Dioxide 28 Anion Gap 6 L BUN 14.2 Creatinine 0.8 Est GFR (CKD-EPI)AfAm 94.19 Est GFR (CKD-EPI)NonAf 81.27 Random Glucose 104 Hemoglobin A1c % Calcium 8.8 Phosphorus 4.0 Magnesium 2.1 Total Bilirubin AST ALT Alkaline Phosphatase Creatine Kinase Troponin I Total Protein Albumin TSH 1.48 Urine Color Yellow Urine Appearance Clear Urine pH 6.5 Ur Specific [place] 1.010 Urine Protein Negative Urine Glucose (UA) Negative Urine Ketones Negative Urine Blood Negative Urine Nitrite Negative Urine Bilirubin Negative Urine Urobilinogen 0.2 Ur Leukocyte Esterase Trace Urine WBC (Auto) 2 Urine RBC (Auto) 0 Urine Casts (Auto) 0 U Epithel Cells (Auto) 2.2 Urine Bacteria (Auto) 39.7 01/23/19 05:30 WBC RBC Hgb Hct MCV MCH MCHC RDW Plt Count MPV Absolute Neuts (auto) Neutrophils % Lymphocytes % Monocytes % Eosinophils % Basophils % Nucleated RBC % PT with INR INR PTT (Actin FS) Sodium Potassium Chloride Carbon Dioxide Anion Gap BUN Creatinine Est GFR (CKD-EPI)AfAm Est GFR (CKD-EPI)NonAf Random Glucose Hemoglobin A1c % 6.8 H Calcium Phosphorus Magnesium Total Bilirubin AST ALT Alkaline Phosphatase Creatine Kinase Troponin I Total Protein Albumin TSH Urine Color Urine Appearance Urine pH Ur Specific [place] Urine Protein Urine Glucose (UA) Urine Ketones Urine Blood Urine Nitrite Urine Bilirubin Urine Urobilinogen Ur Leukocyte Esterase Urine WBC (Auto) Urine RBC (Auto) Urine Casts (Auto) U Epithel Cells (Auto) Urine Bacteria (Auto) Active Medications Generic Name Dose Route Start Last Admin Trade Name Freq PRN Reason Stop Dose Admin Allopurinol 100 mg 01/23/19 10:00 01/23/19 09:09 Zyloprim - PO 100 mg DAILY KASSIE Administration Amitriptyline HCl 50 mg 01/23/19 22:00 Elavil - PO HS KASSIE Amlodipine Besylate 10 mg 01/23/19 10:00 01/23/19 09:09 Norvasc - PO 10 mg DAILY KASSIE Administration Aspirin 81 mg 01/23/19 10:00 01/23/19 09:09 Asa - PO 81 mg DAILY KASSIE Administration Budesonide/Formoterol Fumarate 2 puff 01/23/19 10:00 01/23/19 10:46 Symbicort 80/4.5mcg - IH Not Given BID KASSIE Colchicine 0.6 mg 01/23/19 10:00 01/23/19 09:09 Colcrys PO 0.6 mg BID KASSIE Administration Enoxaparin Sodium 40 mg 01/23/19 10:00 01/23/19 09:09 Lovenox - SQ 40 mg DAILY [facility] Administration Sodium Chloride 1,000 mls @ 75 mls/hr 01/22/19 23:45 01/23/19 00:08 Normal Saline - IV 75 mls/hr ASDIR KASSIE Administration Insulin Aspart 1 vial 01/23/19 07:00 01/23/19 11:18 Novolog Vial Sliding Scale - SQ Not Given ACHS [facility] Protocol Meclizine HCl 25 mg 01/22/19 22:37 Antivert - PO TID PRN VERTIGO Rosuvastatin Calcium 20 mg 01/23/19 22:00 Crestor - PO HS KASSIE Tiotropium [place] 2 puff 01/23/19 10:00 01/23/19 10:46 Spiriva Respimat IH Not Given DAILY [facility] ASSESSMENT/PLAN: Alexa Freire is a 57 year old female with past medical history of HTN , HLD, DM, COPD, Asthma, Gout, MVP, GERD, Fibromyalgia, sciatica, cluster migraines, endometrial cancer s/p hysterectomy, presented to the ED due to dizziness and falls x3 today. Dizziness, unclear etiology with slurred speech - orthostatics negative upon arrival at the ED, patient currently asymptomatic - TIA work up done in 01/2018 including Brain MRI, carotid US and echo and stress test all unremarkable - patient with leukocytosis downtrending, CXR negative, UA negative, no overt signs of infection, continue to monitor - Will consult neurology to guide further management, awaiting consultation - gentle hydration - tele monitoring - fall precautions - neurochecks - physical therapy - carotid dopplers showing minimal intimal thickeing at left common carotid bifurcation with no hemodynamically significant stenosis - echo showing LVEF 55-60%, impaired LV relaxation, trivial pericardial effusion not hemodynamically significant Hypertension - continue home medications Hyperlipidemia - continue home medications - patient noted noncompliance with home meds, encouraged compliance COPD/Asthma - continue home medications DM - A1c 6.8 - BGM ACHS - Insulin sliding scale implemented - patient noted to be non-compliant with home meds, encouraged complaince FEN - IV NS @75cc/hr - continue to monitor electrolytes and replete as necessary - Diabetic/sodium restricted diet Prophylaxis - Lovenox 40mg sq daily Disposition - telemetry - pending dispo awaiting neuro recommendations Visit type - Emergency Visit Emergency Visit: No - New Patient This patient is new to me today: Yes Date on this admission: 01/23/19 - Critical Care Critical Care patient: No
--- NOTE | 2019-01-23 17:43 | CONSULT ---
Consult - text type - Consultation Consultation Note: NEUROLOGY CONSULTATION GREATLY APPRECIATED: Events reviewed. Pt examined. This 58 yo RH woman is well known to me with Migraines Headaches and Restless Limbs. Stable on amitriptyline 50 mg Hs, which is working for both Headaches and nocturnal pains. Rare Migraine Headaches. PMHX: HTN, DM, gout, COPD. Yesterday was hanging curtains, when she felt briefly lightedheaded and unsteady without LOC. Lowered herself to ground without trauma. Righted herself without assistance. Then developed mild L sided headache and visited her PMD. Sent to ER for eval after described transient slurred speech, of which pt was unaware. CT of head: Normal. Now at baseline, requesting discharge. GLORIA: Obese. Cor reg. No bruit. No evidence of head trauma. NEURO: Mentation/Speech: Normal. CNII-CNXII: Normal without nystagmus. Motor: No drift or tremor. Strength normal. Reflexes normal, except areflexic in legs. Toes downgoing. Coordination: No FTN dystaxia. Sensation: Normal to vibration. Romberg - Gait: Sl waddle. Walks on heels, toes. Impression: Essentially normal neurological examination Transient lightheadedness possibly on orthostatic basis due to amitriptyline No evidence of head trauma or sequellae Suggest: Orthostatic BP's If normal, stable for D/C Neuro f/u as outpatient Thank you very much, Rod Hutson MD
--- NOTE | 2019-01-23 18:04 | DS ---
Physical Exam: SUBJECTIVE: Patient seen and examined at the bedside. The patient stated that she felt better and did not have any further dizziness on this presentation. Stated that she did not have any other focal neurological symptoms. Denied cp, sob, fever, chills, n/v/c/d, abd pain, numbness, tingling, weakness. OBJECTIVE: Vital Signs Period Temp Pulse Resp BP Sys/Rodgers Pulse Ox Last 24 Hr 98.0 F-98.4 F 68-80 14-18 123-147/80-85 98-100 PHYSICAL EXAM GENERAL: The patient is awake, alert, and fully oriented, in no acute distress. HEAD: Normal with no signs of trauma. EYES: PERRL, extraocular movements intact, sclera anicteric, conjunctiva clear. No ptosis. NECK: Trachea midline, full range of motion, supple. LUNGS: Breath sounds equal, clear to auscultation bilaterally, no wheezes, no crackles, no accessory muscle use. HEART: Regular rate and rhythm, S1, S2 without murmur, rub. ABDOMEN: Soft, nontender, nondistended, normoactive bowel sounds, no guarding, no rebound, no masses. EXTREMITIES: 2+ pulses, warm, well-perfused, no edema. NEUROLOGICAL: Cranial nerves II through XII grossly intact. 5/5 muscle strength bilaterally, upper and lower extremities, Babinski negative. PSYCH: Normal mood, normal affect. SKIN: Warm, dry, normal turgor, no rashes or lesions noted. LABS Laboratory Results - last 24 hr 01/22/19 01/22/19 01/22/19 18:00 18:00 18:00 WBC 13.1 H RBC 4.75 Hgb 13.9 Hct 42.6 MCV 89.7 MCH 29.3 MCHC 32.7 RDW 14.4 Plt Count 331 D MPV 8.4 Absolute Neuts (auto) 8.6 H Neutrophils % 65.8 Lymphocytes % 25.4 D Monocytes % 6.0 Eosinophils % 2.3 Basophils % 0.5 Nucleated RBC % 0 PT with INR 10.20 INR 0.87 PTT (Actin FS) 32.6 Sodium 138 Potassium 3.8 Chloride 104 Carbon Dioxide 29 Anion Gap 5 L BUN 19.5 H Creatinine 0.9 Est GFR (CKD-EPI)AfAm 81.69 Est GFR (CKD-EPI)NonAf 70.48 Random Glucose 108 H Hemoglobin A1c % Calcium 9.1 Phosphorus Magnesium Total Bilirubin 0.3 AST 9 L ALT 25 Alkaline Phosphatase 113 Creatine Kinase 91 Troponin I < 0.02 Total Protein 7.2 Albumin 4.1 TSH Urine Color Urine Appearance Urine pH Ur Specific [place] Urine Protein Urine Glucose (UA) Urine Ketones Urine Blood Urine Nitrite Urine Bilirubin Urine Urobilinogen Ur Leukocyte Esterase Urine WBC (Auto) Urine RBC (Auto) Urine Casts (Auto) U Epithel Cells (Auto) Urine Bacteria (Auto) 01/23/19 01/23/19 01/23/19 00:10 05:30 05:30 WBC 10.2 H RBC 4.42 Hgb 13.4 Hct 39.8 MCV 90.0 MCH 30.3 MCHC 33.7 RDW 14.2 Plt Count 279 MPV 8.3 Absolute Neuts (auto) 6.2 Neutrophils % 60.2 Lymphocytes % 31.0 D Monocytes % 6.3 Eosinophils % 2.2 Basophils % 0.3 Nucleated RBC % 0 PT with INR INR PTT (Actin FS) Sodium 140 Potassium 4.0 Chloride 106 Carbon Dioxide 28 Anion Gap 6 L BUN 14.2 Creatinine 0.8 Est GFR (CKD-EPI)AfAm 94.19 Est GFR (CKD-EPI)NonAf 81.27 Random Glucose 104 Hemoglobin A1c % Calcium 8.8 Phosphorus 4.0 Magnesium 2.1 Total Bilirubin AST ALT Alkaline Phosphatase Creatine Kinase Troponin I Total Protein Albumin TSH 1.48 Urine Color Yellow Urine Appearance Clear Urine pH 6.5 Ur Specific [place] 1.010 Urine Protein Negative Urine Glucose (UA) Negative Urine Ketones Negative Urine Blood Negative Urine Nitrite Negative Urine Bilirubin Negative Urine Urobilinogen 0.2 Ur Leukocyte Esterase Trace Urine WBC (Auto) 2 Urine RBC (Auto) 0 Urine Casts (Auto) 0 U Epithel Cells (Auto) 2.2 Urine Bacteria (Auto) 39.7 01/23/19 05:30 WBC RBC Hgb Hct MCV MCH MCHC RDW Plt Count MPV Absolute Neuts (auto) Neutrophils % Lymphocytes % Monocytes % Eosinophils % Basophils % Nucleated RBC % PT with INR INR PTT (Actin FS) Sodium Potassium Chloride Carbon Dioxide Anion Gap BUN Creatinine Est GFR (CKD-EPI)AfAm Est GFR (CKD-EPI)NonAf Random Glucose Hemoglobin A1c % 6.8 H Calcium Phosphorus Magnesium Total Bilirubin AST ALT Alkaline Phosphatase Creatine Kinase Troponin I Total Protein Albumin TSH Urine Color Urine Appearance Urine pH Ur Specific [place] Urine Protein Urine Glucose (UA) Urine Ketones Urine Blood Urine Nitrite Urine Bilirubin Urine Urobilinogen Ur Leukocyte Esterase Urine WBC (Auto) Urine RBC (Auto) Urine Casts (Auto) U Epithel Cells (Auto) Urine Bacteria (Auto) HOSPITAL COURSE: Alexa Freire is a 57 year old female with past medical history of HTN , HLD, DM, COPD, Asthma, Gout, MVP, GERD, Fibromyalgia, sciatica, cluster migraines, endometrial cancer s/p hysterectomy, presented to the ED due to dizziness and falls x3. Patient noted that she was told she has slurred speech and mild facial droop which resolved. Patient had neurology consult who suggested orthostatic vital signs and to follow up outpatient. Patient was given gentle hydration. Head CT scan shows no acute changes. Carotid dopplers showing no significant hemodynamically significant stenosis. Echo showing LVEF 55-60%, impaired LV relaxation, trivial pericardial effusion not hemodynamically significant. Patient was encouraged to continue with home medications. Patient was spoken to and voiced agreement to plan. Patient was discharged in stable condition. Date of Admission:01/22/19 Date of Discharge: 01/23/19 Minutes to complete discharge: 35 Discharge Summary Problems reviewed: Yes Reason For Visit: TRANSIENT ISCHEMIC ATTACK/SYNCOPE AND COLLAPSE Condition: Improved - Instructions Diet, Activity, Other Instructions: You were admitted to the hospital for dizziness and slurred speech. You had a head CT performed which did not show any findings. You had ultrasound of your carotid (neck) vessels which did not show any significant narrowing. You had an echocardiogram (ultrasound) of the heart which showed impaired relaxation of the heart and a small amount of non-significant fluid around the heart. You should follow up with your primary care doctor to follow up for these findings. You were seen by a neurologist who recommended that you follow up with Dr. Hutson in the outpatient clinic. MEDICATIONS Please continue to take all of your home medications as prescribed. You have been prescribed aspirin, cholesterol medication (Crestor), and number of diabetes medications. It is advised that you take these medications in order to prevent symptoms of stroke, heart attack, and other chronic medical conditions. REFERRALS Please follow up with your primary care physician, Dr. Radhika العلي, within 1 week. Please follow up the neurologist, Dr. Rod Hutson, within 1 week. SPECIAL INSTRUCTIONS Please follow up with your primary care provider and specialist and be sure to take medications prescribed to you. If you have any further symptoms of severe headache, dizziness, lightheadedness , chest pain, shortness of breath, and other general feelings of unwellness please call 911 or go to your nearest emergency room. Referrals: Rod Hutson MD [Staff Physician] - 1 Week Radhika العلي MD [Primary Care Provider] - 1 Week Disposition: HOME - Home Medications Comprehensive Discharge Medication List: Ambulatory Orders Salmeterol/Fluticasone [Advair 500Mcg/50Mcg -] 1 inh IH BID 12/24/12 Tiotropium [place] [Spiriva] 1 inh PO DAILY 12/26/12 Amlodipine Besylate 10 mg PO DAILY 03/09/15 Colchicine 0.6 mg PO BID 03/09/15 Amitriptyline HCl [Elavil -] 50 mg PO HS 01/26/18 Doxazosin Mesylate [Cardura -] 2 mg PO DAILY 01/26/18 Theophylline Anhydrous [Ronal-24] 0.5 tab PO BID 01/26/18 Aspirin [ASA -] 81 mg PO DAILY #30 tab.chew 01/28/18 Diclofenac Sodium 25 mg PO DAILY PRN 03/06/18 Nitroglycerin Sublingual [Nitrostat -] 0.4 mg SL DAILY PRN 03/06/18 Rosuvastatin [Crestor -] 20 mg PO DAILY 03/06/18 Allopurinol [Zyloprim -] 100 mg PO DAILY 01/23/19 Dapagliflozin Propanediol [Farxiga] 5 mg PO DAILY 01/23/19 Empagliflozin [Jardiance] 10 mg PO DAILY 01/23/19 Problem List - Problems (1) Dizziness Code(s): R42 - DIZZINESS AND GIDDINESS (2) TIA (transient ischemic attack) Code(s): G45.9 - TRANSIENT CEREBRAL ISCHEMIC ATTACK, UNSPECIFIED (3) Slurred speech Code(s): R47.81 - SLURRED SPEECH This patient is new to me today: Yes Date on this admission: 01/23/19 Emergency Visit: No Critical Care patient: No - Discharge Referral Referred to [facility] No
--- NOTE | 2019-01-23 18:29 | PN ---
Teaching Attending Note Name of Resident: Daniele Kern ATTENDING PHYSICIAN STATEMENT I saw and evaluated the patient. I reviewed the resident's note and discussed the case with the resident. I agree with the resident's findings and plan as documented. SUBJECTIVE: No further episodes of lightheadedness/dizziness. No fever/chills. No headache/nausea/vomiting. No CP/palpitations. OBJECTIVE: Afebrile, Hemodynamically Stable. Last Vital Signs Temp Pulse Resp BP Pulse Ox 98.4 F 79 17 123/80 98 01/23/19 16:54 01/23/19 16:54 01/23/19 16:54 01/23/19 16:54 01/23/19 16:54 HEENT - Atraumatic, Normocephalic. Heart - S1, S2 RRR Lungs - clear to auscultation Abdomen - high BMI. Soft, non-tender. Bowel Sounds normal. Extremities - no edema, no calf tenderness. Neuro - AAO x 3. 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 EOMI. BECKY. Tone/Power normal all 4 extremities. Laboratory Results - last 24 hr 01/22/19 01/22/19 01/22/19 18:00 18:00 18:00 WBC 13.1 H RBC 4.75 Hgb 13.9 Hct 42.6 MCV 89.7 MCH 29.3 MCHC 32.7 RDW 14.4 Plt Count 331 D MPV 8.4 Absolute Neuts (auto) 8.6 H Neutrophils % 65.8 Lymphocytes % 25.4 D Monocytes % 6.0 Eosinophils % 2.3 Basophils % 0.5 Nucleated RBC % 0 PT with INR 10.20 INR 0.87 PTT (Actin FS) 32.6 Sodium 138 Potassium 3.8 Chloride 104 Carbon Dioxide 29 Anion Gap 5 L BUN 19.5 H Creatinine 0.9 Est GFR (CKD-EPI)AfAm 81.69 Est GFR (CKD-EPI)NonAf 70.48 Random Glucose 108 H Hemoglobin A1c % Calcium 9.1 Phosphorus Magnesium Total Bilirubin 0.3 AST 9 L ALT 25 Alkaline Phosphatase 113 Creatine Kinase 91 Troponin I < 0.02 Total Protein 7.2 Albumin 4.1 TSH Urine Color Urine Appearance Urine pH Ur Specific [place] Urine Protein Urine Glucose (UA) Urine Ketones Urine Blood Urine Nitrite Urine Bilirubin Urine Urobilinogen Ur Leukocyte Esterase Urine WBC (Auto) Urine RBC (Auto) Urine Casts (Auto) U Epithel Cells (Auto) Urine Bacteria (Auto) 01/23/19 01/23/19 01/23/19 00:10 05:30 05:30 WBC 10.2 H RBC 4.42 Hgb 13.4 Hct 39.8 MCV 90.0 MCH 30.3 MCHC 33.7 RDW 14.2 Plt Count 279 MPV 8.3 Absolute Neuts (auto) 6.2 Neutrophils % 60.2 Lymphocytes % 31.0 D Monocytes % 6.3 Eosinophils % 2.2 Basophils % 0.3 Nucleated RBC % 0 PT with INR INR PTT (Actin FS) Sodium 140 Potassium 4.0 Chloride 106 Carbon Dioxide 28 Anion Gap 6 L BUN 14.2 Creatinine 0.8 Est GFR (CKD-EPI)AfAm 94.19 Est GFR (CKD-EPI)NonAf 81.27 Random Glucose 104 Hemoglobin A1c % Calcium 8.8 Phosphorus 4.0 Magnesium 2.1 Total Bilirubin AST ALT Alkaline Phosphatase Creatine Kinase Troponin I Total Protein Albumin TSH 1.48 Urine Color Yellow Urine Appearance Clear Urine pH 6.5 Ur Specific [place] 1.010 Urine Protein Negative Urine Glucose (UA) Negative Urine Ketones Negative Urine Blood Negative Urine Nitrite Negative Urine Bilirubin Negative Urine Urobilinogen 0.2 Ur Leukocyte Esterase Trace Urine WBC (Auto) 2 Urine RBC (Auto) 0 Urine Casts (Auto) 0 U Epithel Cells (Auto) 2.2 Urine Bacteria (Auto) 39.7 01/23/19 05:30 WBC RBC Hgb Hct MCV MCH MCHC RDW Plt Count MPV Absolute Neuts (auto) Neutrophils % Lymphocytes % Monocytes % Eosinophils % Basophils % Nucleated RBC % PT with INR INR PTT (Actin FS) Sodium Potassium Chloride Carbon Dioxide Anion Gap BUN Creatinine Est GFR (CKD-EPI)AfAm Est GFR (CKD-EPI)NonAf Random Glucose Hemoglobin A1c % 6.8 H Calcium Phosphorus Magnesium Total Bilirubin AST ALT Alkaline Phosphatase Creatine Kinase Troponin I Total Protein Albumin TSH Urine Color Urine Appearance Urine pH Ur Specific [place] Urine Protein Urine Glucose (UA) Urine Ketones Urine Blood Urine Nitrite Urine Bilirubin Urine Urobilinogen Ur Leukocyte Esterase Urine WBC (Auto) Urine RBC (Auto) Urine Casts (Auto) U Epithel Cells (Auto) Urine Bacteria (Auto) Current Medications Generic Name Dose Route Start Last Admin Trade Name Freq PRN Reason Stop Dose Admin Allopurinol 100 mg 01/23/19 10:00 01/23/19 09:09 Zyloprim - PO 100 mg DAILY KASSIE Administration Amitriptyline HCl 50 mg 01/23/19 22:00 Elavil - PO HS [facility] Amlodipine Besylate 10 mg 01/23/19 10:00 01/23/19 09:09 Norvasc - PO 10 mg DAILY KASSIE Administration Aspirin 81 mg 01/23/19 10:00 01/23/19 09:09 Asa - PO 81 mg DAILY KASSIE Administration Budesonide/Formoterol Fumarate 2 puff 01/23/19 10:00 01/23/19 10:46 Symbicort 80/4.5mcg - IH Not Given BID KASSIE Colchicine 0.6 mg 01/23/19 10:00 01/23/19 09:09 Colcrys PO 0.6 mg BID KASSIE Administration Enoxaparin Sodium 40 mg 01/23/19 10:00 01/23/19 09:09 Lovenox - SQ 40 mg DAILY KASSIE Administration Sodium Chloride 1,000 mls @ 75 mls/hr 01/22/19 23:45 01/23/19 00:08 Normal Saline - IV 75 mls/hr ASDIR [facility] Administration Insulin Aspart 1 vial 01/23/19 07:00 01/23/19 16:36 Novolog Vial Sliding Scale - SQ Not Given ACHS [facility] Protocol Meclizine HCl 25 mg 01/22/19 22:37 Antivert - PO TID PRN VERTIGO Rosuvastatin Calcium 20 mg 01/23/19 22:00 Crestor - PO HS [facility] Tiotropium [place] 2 puff 01/23/19 10:00 01/23/19 10:46 Spiriva Respimat IH Not Given DAILY [facility] Home Medications Medication Instructions Recorded Salmeterol/Fluticasone [Advair 1 inh IH BID 12/24/12 500Mcg/50Mcg -] Tiotropium [place] [Spiriva] 1 inh PO DAILY 12/26/12 Amlodipine Besylate 10 mg PO DAILY 03/09/15 Colchicine 0.6 mg PO BID 03/09/15 Amitriptyline HCl [Elavil -] 50 mg PO HS 01/26/18 Doxazosin Mesylate [Cardura -] 2 mg PO DAILY 01/26/18 Theophylline Anhydrous [Ronal-24] 0.5 tab PO BID 01/26/18 Aspirin [ASA -] 81 mg PO DAILY #30 tab.chew 01/28/18 Diclofenac Sodium 25 mg PO DAILY PRN 03/06/18 Nitroglycerin Sublingual 0.4 mg SL DAILY PRN 03/06/18 [Nitrostat -] Rosuvastatin [Crestor -] 20 mg PO DAILY 03/06/18 Allopurinol [Zyloprim -] 100 mg PO DAILY 01/23/19 Dapagliflozin Propanediol [Farxiga] 5 mg PO DAILY 01/23/19 Empagliflozin [Jardiance] 10 mg PO DAILY 01/23/19 ASSESSMENT AND PLAN: 57 year old female with history of HTN, HLD, DM 2, COPD, Asthma, Gout, MVP, GERD , Fibromyalgia, sciatica, cluster migraines, endometrial cancer s/p hysterectomy , presented to the ED due to dizziness and falls x 3. 1. Dizziness/Pre-Syncope, associated falls - currently asymptomatic Orhtostatic vitals negative on arrival in ED No acute findings on ECG No telemonitoring events noted. CT Head negative Carotid Duplex negative for hemodnamically significant stenosis Echo - normal EF. Neuro evaluated - possible lightheadedness on the basis of orthostsis sec to Elavil. Otostatic vitals initially negative. Will repeat and discharge if no further orthostasis or symptoms. 2. HTN - Continue Norvasc, Cardura 3. HLD - Continue Statin 4. DM 2 - Jardiance, Farxiga held. Novolog as per sliding scale. 5. COPD - Stable. On Advair, Spiriva, theophylline. 6. Fibromyalgia/Sciatica - Continue Elavil. DVT Px - Lovenox SQ
[2019-01-23 19:06] VITALS: BP 137/92; PULSE 75; TEMP 97.6
[2019-01-23] MEDS ORDERED: ROSUVASTATIN CA 10 MG TABLET (FP) PO SCH (22:00)
[2019-01-23] MEDS ORDERED: AMITRIPTYLINE HCL 50 MG TABLET PO SCH (22:00)
== END 2019-01-23 19:07 | disposition home or self-care (01) ==
LOC: JER 17:14 → JERBED 20:05 → J2W 01-23 18:16
PROVIDERS: ADMIT Internal Medicine
PROC: 3E0337Z Introduction of Electrolytic and Water Balance Substance into Peripheral Vein, Percutaneous Approach (ICD-10-PCS; principal; 2019-01-22)
PROC: 3E013GC Introduction of Other Therapeutic Substance into Subcutaneous Tissue, Percutaneous Approach (ICD-10-PCS; 2019-01-22)
DX: G45.9 Transient cerebral ischemic attack, unspecified (principal); R55 Syncope and collapse; R42 Dizziness and giddiness; I10 Essential (primary) hypertension; E78.5 Hyperlipidemia, unspecified; E11.9 Type 2 diabetes mellitus without complications; J44.9 Chronic obstructive pulmonary disease, unspecified; M10.9 Gout, unspecified; I34.1 Nonrheumatic mitral (valve) prolapse; K21.9 Gastro-esophageal reflux disease without esophagitis; M79.7 Fibromyalgia; M54.30 Sciatica, unspecified side; E66.01 Morbid (severe) obesity due to excess calories; Z68.41 Body mass index [BMI] 40.0-44.9, adult; Z85.42 Personal history of malignant neoplasm of other parts of uterus; Z90.710 Acquired absence of both cervix and uterus; Z86.73 Personal history of transient ischemic attack (TIA), and cerebral infarction without residual deficits; Z86.718 Personal history of other venous thrombosis and embolism; Z29.8 Encounter for other specified prophylactic measures
CPT/HCPCS: 36415; 70450-TC; 71045-TC-FY; 80048; 80053; 81003; 82550; 83036; 83735; 84100; 84443; 84484; 85025; 85610; 85730; 93005; 93010; 93306-TC; 93880-TC; 99285-25; G0378; J7030

== ENCOUNTER 2019-05-13 11:36 | Emergency (ER) | payer OTHER ==
[2019-05-13 12:00] VITALS: BP 180/103; PULSE 91; TEMP 97.9; BMI 40.7
[2019-05-13] MEDS ORDERED: IBUPROFEN 600 MG TABLET (FP) PO ONE ×2 (12:41→13:01)
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
== END 2019-05-13 15:47 | disposition home or self-care (01) ==
LOC: JER 11:36
DX: V43.52XA Car driver injured in collision with other type car in traffic accident, initial encounter (principal); Y93.89 Activity, other specified; Y92.410 Unspecified street and highway as the place of occurrence of the external cause; Z86.73 Personal history of transient ischemic attack (TIA), and cerebral infarction without residual deficits; I10 Essential (primary) hypertension; E78.00 Pure hypercholesterolemia, unspecified; E11.9 Type 2 diabetes mellitus without complications; J44.9 Chronic obstructive pulmonary disease, unspecified
CPT/HCPCS: 99283-25

== ENCOUNTER 2019-11-27 17:14 | Inpatient (IN) | payer OTHER ==
[2019-11-27 17:22] VITALS: BMI 48.2
[2019-11-27] MEDS ORDERED: SODIUM CHLORIDE 1,000 ML IV STA (17:55)
--- NOTE | 2019-11-27 18:24 | PDOC ---
History of Present Illness - General Chief Complaint: Pain Stated Complaint: PAIN Time Seen by Provider: 11/27/19 17:40 History Source: Patient Exam Limitations: No Limitations - History of Present Illness Travel History: No Initial Comments: 11/27/19 18:17 HISTORY OF PRESENT ILLNESS: 59-year-old woman with extensive medical history presents emergency department for evaluation of abdominal pain and left flank pain which suddenly got worse today. Patient reports she had a CAT scan performed at [facility] and was told she had 2 hernias that were fat-containing. Patient was seen and evaluated by her primary doctor today who was concerned for potential incarceration. Patient reports she has had urinary frequency and dysuria as well as the left flank pain for the past "couple of days." She denies fevers, chills, constipation, diarrhea, vaginal bleeding, rectal bleeding, hematuria. Patient reports she has had 2 soft bowel movements today which is her usual pattern. No recent travel or sick contacts. PAST MEDICAL HISTORY: Asthma, endometrial CA status post total abdominal hysterectomy, mitral valve prolapse, CVA, COPD, DVT, diet-controlled diabetes, GERD, hypertension, hyperlipidemia SURGICAL HISTORY: Denies ALLERGIES: Singulair, Mirapex, Topamax, Naldecon REVIEW OF SYSTEMS General/Constitutional: Denies fever or chills. Denies weakness, weight change. HEENT: Denies change in vision. Denies ear pain or discharge. Denies sore throat. Cardiovascular: Denies chest pain or shortness of breath. Respiratory: Denies cough, wheezing, or hemoptysis. Gastrointestinal: See HPI Genitourinary: See HPI Musculoskeletal: Denies joint or muscle swelling or pain. Denies neck or back pain. Skin and breasts: Denies rash or easy bruising. Neurologic: Denies headache, vertigo, loss of consciousness, or loss of sensation. Psychiatric: Denies depression or anxiety. Endocrine: Denies increased thirst. Denies abnormal weight change. Hematologic/Lymphatic: Denies anemia, easy bleeding, or history of blood clots. Allergic/Immunologic: Denies hives or skin allergy. Denies latex allergy. PHYSICAL EXAM General Appearance: Well-appearing, appropriately dressed. No apparent distress, no intoxication. HEENT: EOMI, PERRLA, normal ENT inspection, normal voice, TMs normal, pharynx normal. No conjunctival pallor. No photophobia, scleral icterus. Neck: Supple. Trachea midline. No tenderness, rigidity, carotid bruit, stridor, lymphadenopathy, or thyromegaly. Respiratory/Chest: Lungs CTAB. No shortness of breath, chest tenderness, respiratory distress, accessory muscle use. No crackles, rales, rhonchi, stridor, wheezing, dullness Cardiovascular: RRR. S1, S2. No JVD, murmur, bradycardia, tachycardia. Vascular Pulses: Dorsalis-Pedis (R): 2+, Dorsalis-Pedis (L): 2+ Gastrointestinal/Abdominal: Normal bowel sounds. Obese abdomen soft, non- distended. Diffuse tenderness without rebound tenderness. No organomegaly, pulsatile mass, guarding, hernia, hepatomegaly, splenomegaly. Lymphatic: No adenopathy, tenderness. Musculoskeletal/Extremities: No CVA tenderness. No tenderness to extremities, pedal edema, swelling, erythema or deformity. Integumentary: Petechial rash present to abdomen and lower extremities. Neurologic: lamp developer II-XII intact. Fully oriented, alert. Appropriate mood/affect. Motor strength 5/5. No appreciable EOM palsy, facial droop or sensory deficit. 11/27/19 18:18 11/27/19 18:21 Past History - Medical History Allergies/Adverse Reactions: Allergies Allergy/AdvReac Type Severity Reaction Status Date / Time montelukast sodium Allergy Mild Itching Verified 11/27/19 18:42 [From Singulair] pramipexole [From Mirapex] Allergy Verified 11/27/19 18:42 topiramate [From Topamax] AdvReac Verified 11/27/19 18:42 NALDECON AdvReac Mild NOSE BLEEDS Uncoded 11/27/19 18:42 Home Medications: Ambulatory Orders Salmeterol/Fluticasone [Advair 500Mcg/50Mcg -] 1 inh IH BID 12/24/12 Tiotropium [place] [Spiriva] 1 inh PO DAILY 12/26/12 Amlodipine Besylate 10 mg PO DAILY 03/09/15 Amitriptyline HCl [Elavil -] 50 mg PO HS 01/26/18 Rosuvastatin [Crestor -] 20 mg PO DAILY 03/06/18 Allopurinol [Zyloprim -] 100 mg PO DAILY 01/23/19 Albuterol Sulfate [Proair Hfa] 1 puff IH PRN 11/27/19 Colchicine 0.6 mg PO DAILY 11/27/19 Gabapentin [Neurontin -] 300 mg PO HS 11/27/19 Multivitamins [Tab-A-Vit -] 1 tab PO DAILY 11/27/19 Anemia: No Asthma: Yes Cancer: Yes (endometrial ca) Cardiac Disorders: Yes (MVP) CVA: Yes COPD: Yes CHF: No DVT: Yes Dementia: No Diabetes: Yes (STATES "YES", ON DIET CONTROLLED) GI Disorders: Yes (GERD 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) Disorders: Yes (Endometrial CA s/p Hysterectomy 12/19) HTN: Yes Hypercholesterolemia: Yes Liver Disease: No Seizures: No Thyroid Disease: No - Surgical History Abdominal Surgery: No Appendectomy: No Cardiac Surgery: No Cholecystectomy: No Lung Surgery: No Neurologic Surgery: No Orthopedic Surgery: No - Reproductive History Is Patient Now?: No - Immunization History Immunization Up to Date: Yes - Psycho-Social/Smoking History Smoking History: Never smoked Have you smoked in the past 12 months: No - Substance Abuse Hx (Audit-C & DAST Scrn) How often the patient has a drink containing alcohol: Never Score: In Men: 4 or > Positive; In Women: 3 or > Positive: 0 Screen Result (Pos requires Nsg. Audit-10AR): Negative In the last yr the pt used illegal drug/Rx for NonMed reason: No Score: Yes response is considered Positive: 0 Screen Result (Positive result requires Nsg. DAST-10): Negative *Physical Exam - Vital Signs Last Vital Signs Temp Pulse Resp BP Pulse Ox 98.2 F 95 H 16 148/68 99 11/27/19 17:18 11/27/19 17:18 11/27/19 17:18 11/27/19 17:18 11/27/19 17:18 ED Treatment Course - LABORATORY CBC & Chemistry Diagram: 11/27/19 18:10 11/27/19 18:10 - RADIOLOGY Radiology Studies Ordered: Category Date Time Status ABDOMEN CT WITH CONTRAST* [CT] Stat CT Scan 11/27/19 17:55 Ordered Medical Decision Making - Medical Decision Making 11/27/19 18:24 A/P: 59-year-old woman with diffuse abdominal pain and left flank pain for the past few days Diffuse abdominal tenderness noted. No rebound tenderness present. Negative psoas, obturator and Rovsing signs. No CVA tenderness elicited Petechial rash present to abdominal wall and lower extremities No red flags for meningitis Patient has a known hernia x2 we will get a CT scan to reevaluate hernias for potential incarceration Labs including lipase and coags Urinalysis, urine culture Normal saline 1 L IV bolus Reassess 11/27/19 23:16 CT scan is read by Dr. Szymanski: Compared to CT performed 03/06/2018 interval development of approximately 3 x 2 cm focus of mild pericolonic soft tissue edema is noted abutting the ventral border of the descending colon adjacent to the junction with the sigmoid portion. This finding could be basis of omental infarction or acute diverticulitis. Several small adjacent diverticula are visualized. An inferior midline periumbilical hernia is noted which comparison to the prior exam no longer contains a small bowel loop. Interval development of a small right paramedian epigastric hernia is seen containing fat only. The appendix is not definitely visualized. No indirect CT signs of acute appendicitis are seen. Patient has a mild leukocytosis will give IV antibiotics and admit for continued evaluation of CT findings. 11/27/19 23:52 Case was discussed with the hospitalist service who accepts patient for [facility] admission for continued IV antibiotics Case was also discussed with general surgery Dr. ash who states at this time patient is not a surgical candidate but will consult on the patient and follow during hospitalization. Discharge - Discharge Information Problems reviewed: Yes Clinical Impression/Diagnosis: Diverticulitis Condition: Fair - Admission Yes - Follow up/Referral - Patient Discharge Instructions - Post Discharge Activity
[2019-11-27] MEDS ORDERED: ACETAMINOPHEN 1000 MG/100 ML VIAL (NON FORMULARY) IVPB ONE (18:26)
[2019-11-27] MEDS ORDERED: ACETAMINOPHEN INJECTION 100 ML IVPB ONE (18:32)
[2019-11-27 18:40] LABS: BASO % 0.3 % (0-2.0); EOS % 1.6 % (0-4.5); HEMATOCRIT 39.3 % (32.4-45.2); LYMPH % 19.2 % (8-40); MCH 29.7 pg (25.7-33.7); MCHC 33.1 g/dl (32.0-36.0); MEAN CELL VOLUME 89.6 fl (80-96); MEAN PLT VOLUME 8.5 fl (7.5-11.1); MONO % 6.7 % (3.8-10.2); NEUT % 72.2 % (42.8-82.8); PLATELET COUNT 298 K/MM3 (134-434); RBC 4.39 M/mm3 (3.60-5.2); WHITE BLOOD COUNT 13.1 K/mm3 (4.0-10.0)
[2019-11-27 18:43] LABS: EPI CELLS 14 /uL (0-25.1); HYALINE CASTS 0 /uL (0-3.1); PH,URINE 6.5 (5.0-8.0); URINE APPEARANCE CLEAR; URINE BACTERIA 156 /uL (0-1359); URINE BILIRUBIN NEGATIVE (NEGATIVE); URINE COLOR YELLOW; URINE GLUCOSE (UA) NEGATIVE (NEGATIVE); URINE KETONE NEGATIVE (NEGATIVE); URINE LEUK ESTERASE 1+ (NEGATIVE); URINE NITRITE NEGATIVE (NEGATIVE); URINE PROTEIN NEGATIVE (NEGATIVE); URINE RBC 111 /uL (0-23.9); URINE UROBILINOGEN 0.2 mg/dL (0.2-1.0); URINE WBC 76 /uL (0-25.8)
--- OUTSIDE RECORDS SUMMARY | 2019-11-27 18:51 | XMS ---
:1960 Author Organization [facility] Support Name Relationship Address Phone UE, UNEMPLOYED Unavailable Unavailable Unavailable UE Unavailable Unavailable Unavailable JONATHAN ARAGON [address] [place] [address] Re-disclosure Warning The records that you are about to access may contain information from federally- assisted alcohol or drug abuse programs. If such information is present, then the following federally mandated warning applies: This information has been disclosed to you from records protected by federal confidentiality rules (42 CFR part 2). The federal rules prohibit you from making any further disclosure of this information unless further disclosure is expressly permitted by the written consent of the person to whom it pertains or as otherwise permitted by 42 CFR part 2. A general authorization for the release of medical or other information is NOT sufficient for this purpose. The Federal rules restrict any use of the information to criminally investigate or prosecute any alcohol or drug abuse patient.The records that you are about to access may contain highly sensitive health information, the redisclosure of which is protected by Article 27-F of the [facility] Public Health law. If you continue you may haveaccess to information: Regarding HIV / AIDS; Provided by facilities licensed or operated by the [facility] Office of Mental Health; or Provided by the [facility] Office for People With Developmental Disabilities. If such information is present, then the following [facility] mandated warning applies: This information has been disclosed to you from confidential records which are protected by state law. State law prohibits you from making any further disclosure of this information without the specific written consent of the person to whom it pertains, or as otherwise permitted by law. Any unauthorized further disclosure in violation of state law may result in a fine or long-term sentence or both. A general authorization for the release of medical or other information is NOT sufficient authorization for further disclosure. Insurance Providers Payer name Policy type Policy ID Covered Covered democrat's Policy P chester / Coverage democrat ID relationship to [place] Inf ormation type [place] [employer] [id number] SELF PAY INSURANCE [employer] [id number] H[employer]MO [id number] BC PPO [id number] PENDING WC/NF [id number] SP [id number] ONLY H[employer]MO [id number] Results ID Date Data Source [id number] 06/21/2019 02:50:00 PM EDT [facility] Name Value Range Interpretation Description Data Sup porting Code Source(s) Document(s ) SARS [facility] CORONAVIRUS 2 RNA This lab was ordered by [facility] and reported by [facility]. ID Date Data Source [id number] 06/18/2019 12:00:00 AM EDT [facility] Name Value Range Interpretation Code Description Data Nancy rce(s) Supporting Document(s ) [facility] RNA XXX GARRETT+probe- Imp This lab was ordered by [facility] and reported by [facility] Procedure
[2019-11-27 18:57] LABS: ALBUMIN 4.2 g/dl (3.4-5.0); BILIRUBIN,TOTAL 0.4 mg/dL (0.2-1); BLOOD UREA NITROGEN 17.8 mg/dL (7-18); CALCIUM 9.5 mg/dL (8.5-10.1); CREATININE 0.9 mg/dL (0.55-1.3); POTASSIUM 4.1 mmol/L (3.5-5.1); TOT PROT 7.6 g/dl (6.4-8.2)
[2019-11-27 20:16] LABS: INR 0.9 (0.83-1.09); PROTHROMBIN TIME (PATIENT) 10.6 SEC (9.7-13.0)
[2019-11-27] MEDS ORDERED: CEFTRIAXONE 1,000 MG in DEXTROSE 5%-WATER - 50 ML IVPB ONE (23:11)
[2019-11-27] MEDS ORDERED: morphine CARPU-JECT 4 MG/1 ML DISP.SYRIN IVPUSH ONE (23:37)
--- NOTE | 2019-11-27 23:44 | HP ---
CHIEF COMPLAINT: Abdominal Pain PCP: Severiano HISTORY OF PRESENT ILLNESS: This is a 59 y/o female with a significant medical history of TIAs (01/2019, 01/2018), Migraine Headaches, RLS, HTN, HLD, DM, COPD, Asthma, Endometrial Ca (s/p Total Hysterectomy, 12/2017) no chemo/RT, Gout, +COVID Infection (06/2019), Bacteremia. Who presents to the ED for evaluation of progressive generalized abdominal pain, left flank pain, and dysuria x2 days. Patient reports having a CT scan of her abdomen performed at [facility], last October and was told that she had 2 hernias that were fat-containing. Patient reports seeing a surgeon recently for the hernia, but did not like the way he spoke to her regarding her weight. Patient was seen and evaluated by her PMD today, who was concerned for potential incarceration. She denies fevers, chills, constipation, diarrhea, vaginal bleeding, rectal bleeding, hematuria. Patient reports she has had 2 soft bowel movements today which is her usual pattern. Patient denies sick contacts or recent travel. Patient reports having a Colonoscopy 2011- but does not recall the results. ER course was notable for: (1) CTAP- compared to CT performed 03/06/2018 interval development of a 3x2 cm focus of mild pericolonic edema is seen abutting the ventral border of the s ecending colon adjacent to the abdominal/pelvic junction. This finding may be due to omental infarction or possibly acute diverticulitis (2) WBC 13.1 (3) UA- +3 blood, +1 leukocyte esterase, 76 wbc, 156 bacteria Recent Travel: None PAST MEDICAL HISTORY: TIAs Migraine Headaches RLS HTN HLD DM COPD Asthma Endometrial Ca Gout Covid 19 Infection Bactermia PAST SURGICAL HISTORY: Total Abdominal Hysterectomy Social History: Smoking: Never, (exposure to second hand smoke) Alcohol: Drugs: Allergies montelukast sodium [From Singulair] Allergy (Mild, Verified 11/27/19 18:42) Itching pramipexole [From Mirapex] Allergy (Verified 11/27/19 18:42) topiramate [From Topamax] Adverse Reaction (Verified 11/27/19 18:42) NALDECON Adverse Reaction (Mild, Uncoded 11/27/19 18:42) NOSE BLEEDS HOME MEDICATIONS: Home Medications Medication Instructions Recorded Salmeterol/Fluticasone [Advair 1 inh IH BID 12/24/12 500Mcg/50Mcg -] Tiotropium [place] [Spiriva] 1 inh PO DAILY 12/26/12 Amlodipine Besylate 10 mg PO DAILY 03/09/15 Amitriptyline HCl [Elavil -] 50 mg PO HS 01/26/18 Rosuvastatin [Crestor -] 20 mg PO DAILY 03/06/18 Allopurinol [Zyloprim -] 100 mg PO DAILY 01/23/19 Albuterol Sulfate [Proair Hfa] 1 puff IH PRN 11/27/19 Colchicine 0.6 mg PO DAILY 11/27/19 Gabapentin [Neurontin -] 300 mg PO HS 11/27/19 Multivitamins [Tab-A-Vit -] 1 tab PO DAILY 11/27/19 REVIEW OF SYSTEMS CONSTITUTIONAL: weight change Absent: fever, chills, diaphoresis, generalized weakness, malaise, loss of appetite HEENT: Absent: rhinorrhea, nasal congestion, throat pain, throat swelling, difficulty swallowing, mouth swelling, ear pain, eye pain, visual changes CARDIOVASCULAR: Absent: chest pain, syncope, palpitations, irregular heart rate, lightheadedness, peripheral edema RESPIRATORY: Absent: cough, shortness of breath, dyspnea with exertion, orthopnea, wheezing, stridor, hemoptysis GASTROINTESTINAL:abdominal pain, abdominal distension Absent: nausea, vomiting, diarrhea, constipation, melena, hematochezia GENITOURINARY: dysuria, frequency, flank pain Absent: urgency, hesitancy, hematuria, genital pain MUSCULOSKELETAL: back pain Absent: myalgia, arthralgia, joint swelling, neck pain SKIN: rash Absent: itching, pallor HEMATOLOGIC/IMMUNOLOGIC: Absent: easy bleeding, easy bruising, lymphadenopathy, frequent infections ENDOCRINE: Absent: unexplained weight gain, unexplained weight loss, heat intolerance, cold intolerance NEUROLOGIC: Absent: headache, focal weakness or paresthesias, dizziness, unsteady gait, seizure, mental status changes, bladder or bowel incontinence PSYCHIATRIC: Absent: anxiety, depression, suicidal or homicidal ideation, hallucinations. PHYSICAL EXAMINATION Vital Signs - 24 hr 11/27/19 17:18 Temperature 98.2 F Pulse Rate 95 H Respiratory 16 Rate Blood Pressure 148/68 O2 Sat by Pulse 99 Oximetry (%) GENERAL: Severe Obesity, awake, alert, and fully oriented, in no acute distress. HEAD: Normal with no signs of trauma. EYES: Pupils equal, round and reactive to light, extraocular movements intact, sclera anicteric, conjunctiva clear. No lid lag. EARS, NOSE, THROAT: Dry mucous membranes. Ears normal, nares patent, oropharynx clear without exudates. NECK: Normal range of motion, supple without lymphadenopathy, JVD, or masses. LUNGS: Breath sounds equal, clear to auscultation bilaterally. No wheezes, and no crackles. No accessory muscle use. HEART: Regular rate and rhythm, normal S1 and S2 without murmur, rub or gallop. ABDOMEN: Protuberant, soft, tenderness to LUQ, LLQ, epigastrium, hypoactive bowel sounds, not distended, no guarding, no rebound, no masses. No hepatomegaly or splenomegaly. MUSCULOSKELETAL: Normal range of motion at all joints. No bony deformities or tenderness. No CVA tenderness. UPPER EXTREMITIES: 2+ pulses, warm, well-perfused. No cyanosis. No clubbing. No peripheral edema. LOWER EXTREMITIES: 2+ pulses, warm, well-perfused. No calf tenderness. No peripheral edema. NEUROLOGICAL: Cranial nerves II-XII intact. Normal speech. Gait not observed. PSYCHIATRIC: Cooperative. Good eye contact. Appropriate mood and affect. SKIN: Petecchial rash to abdomen and lower extremities, raised linear rash to upper extremities. Warm, dry, normal turgor, normal capillary refill. Laboratory Results - last 24 hr 11/27/19 11/27/19 11/27/19 18:10 18:10 18:10 WBC 13.1 H RBC 4.39 Hgb 13.0 Hct 39.3 MCV 89.6 MCH 29.7 MCHC 33.1 RDW 14.0 Plt Count 298 D MPV 8.5 Absolute Neuts (auto) 9.4 H Neutrophils % 72.2 Lymphocytes % 19.2 D Monocytes % 6.7 Eosinophils % 1.6 D Basophils % 0.3 Nucleated RBC % 0 PT with INR 10.60 INR 0.90 Sodium 140 Potassium 4.1 Chloride 105 Carbon Dioxide 30 Anion Gap 6 L BUN 17.8 Creatinine 0.9 Est GFR (CKD-EPI)AfAm 81.11 Est GFR (CKD-EPI)NonAf 69.99 Random Glucose 107 H Calcium 9.5 Total Bilirubin 0.4 AST 17 ALT 24 Alkaline Phosphatase 87 Total Protein 7.6 Albumin 4.2 Lipase 111 Urine Color Urine Appearance Urine pH Ur Specific [place] Urine Protein Urine Glucose (UA) Urine Ketones Urine Blood Urine Nitrite Urine Bilirubin Urine Urobilinogen Ur Leukocyte Esterase Urine WBC (Auto) Urine RBC (Auto) Urine Casts (Auto) U Epithel Cells (Auto) Urine Bacteria (Auto) 11/27/19 18:18 WBC RBC Hgb Hct MCV MCH MCHC RDW Plt Count MPV Absolute Neuts (auto) Neutrophils % Lymphocytes % Monocytes % Eosinophils % Basophils % Nucleated RBC % PT with INR INR Sodium Potassium Chloride Carbon Dioxide Anion Gap BUN Creatinine Est GFR (CKD-EPI)AfAm Est GFR (CKD-EPI)NonAf Random Glucose Calcium Total Bilirubin AST ALT Alkaline Phosphatase Total Protein Albumin Lipase Urine Color Yellow Urine Appearance Clear Urine pH 6.5 Ur Specific [place] 1.006 L Urine Protein Negative Urine Glucose (UA) Negative Urine Ketones Negative Urine Blood 3+ H Urine Nitrite Negative Urine Bilirubin Negative Urine Urobilinogen 0.2 Ur Leukocyte Esterase 1+ H Urine WBC (Auto) 76 Urine RBC (Auto) 111 Urine Casts (Auto) 0 U Epithel Cells (Auto) 14 Urine Bacteria (Auto) 156 ASSESSMENT/PLAN: This is a 59 y/o woman admitted to [facility] for Acute Diverticulitis, ?Omental Infarction, Intractable Abdominal Pain, UTI for further evaluation of their emergent condition. Plan: See Problem List FEN D50.45%NS@75ml/hr Replete lytes prn NPO DVT ppx OOB SCDs Heparin SQ Code Status: Full Code Dispo: Requires Inpatient Care Family Medical History Family History: As Documented Family Hx Cancer: Mother (Breast) Family Hx Cardiac Disorders: Father (Mitral Valve Prolapse) Family Hx Coronary Artery Disease: Grandmother (maternal) ([place]), Grandmother (paternal) ([place]), Grandfather (maternal) ([place]), Grandfather (paternal) ([place]) Family Hx Diabetes: Grandmother (paternal) Other Family History: Diabetes: Maternal Aunts, Maternal Uncles Problem List - Problem (1) Diverticulitis Assessment/Plan: - + Leukocytosis without neutrophilia - CTAP read by Dr Szymanski- Compared to CT performed 03/06/2018 interval development of approximately 3 x 2 cm focus of mild pericolonic soft tissue edema is noted abutting the ventral border of the descending colon adjacent to the junction with the sigmoid portion. This finding could be basis of omental infarction or acute diverticulitis. Several small adjacent diverticula are visualized. An inferior midline periumbilical hernia is noted which comparison to the prior exam no longer contains a small bowel loop. Interval development of a small right paramedian epigastric hernia is seen containing fat only.The appendix is not definitely visualized. No indirect CT signs of acute appendicitis are seen. - Ceftriaxone and Metronidazole given in ED, will continue - Appreciate Surgical Consult- Dr Griffiths aware - NPO - Continue IVF - Pain Management- Ofirmev, Morphine Sulfate prn - Monitor CBC, CMP - Monitor vitals Code(s): K57.92 - DVTRCLI OF INTEST, PART UNSP, W/O PERF OR ABSCESS W/O BLEED (2) Omental infarction Assessment/Plan: - r/o -see above Code(s): K55.069 - ACUTE INFARCTION OF INTESTINE, PART AND EXTENT UNSPECIFIED (3) Abdominal pain Assessment/Plan: - see above Code(s): R10.9 - UNSPECIFIED ABDOMINAL PAIN (4) UTI (urinary tract infection) Assessment/Plan: - UA- reviewed - Urine Culture-pending - Will empirically treat with Ceftriaxone until culture resulted - Monitor CBC - Monitor vitals Code(s): N39.0 - URINARY TRACT INFECTION, SITE NOT SPECIFIED (5) COPD (chronic obstructive pulmonary disease) Assessment/Plan: - stable -No acute flare Code(s): J44.9 - CHRONIC OBSTRUCTIVE PULMONARY DISEASE, UNSPECIFIED (6) Rash Assessment/Plan: -? source - no airway compromise - Patient denies uticaria - Benadryl prn - Consider Medrol pk - Monitor CBC, CMP - Monitor vitals Code(s): R21 - RASH AND OTHER NONSPECIFIC SKIN ERUPTION (7) HTN (hypertension) Assessment/Plan: - stable - Monitor BP - Continue current medications - Monitor CMP Code(s): I10 - ESSENTIAL (PRIMARY) HYPERTENSION (8) Diabetes Assessment/Plan: - Stable - BGMs - ISS when diet resumed Code(s): E11.9 - TYPE 2 DIABETES MELLITUS WITHOUT COMPLICATIONS (9) Hx TIA/stroke w/o resid Assessment/Plan: - stable - Fall Precautions Code(s): Z86.73 - PRSNL HX OF TIA (TIA), AND CEREB INFRC W/O RESID DEFICITS (10) Severe obesity (BMI >= 40) Assessment/Plan: - Counseled on weight reduction and lifestyle modifications, patient agreed - Consider RD evaluation Code(s): E66.01 - MORBID (SEVERE) OBESITY DUE TO EXCESS CALORIES (11) Encounter for screening laboratory testing for COVID-19 virus Assessment/Plan: - Low Risk - COVID PCR-pending - Isolation Precautions Code(s): Z11.59 - ENCOUNTER FOR SCREENING FOR OTHER VIRAL DISEASES Visit type - Emergency Visit Emergency Visit: Yes ED Registration Date: 11/27/19 Care time: The patient presented to the Emergency Department on the above date and was hospitalized for further evaluation of their emergent condition. - New Patient This patient is new to me today: Yes Date on this admission: 11/27/19 - Critical Care Critical Care patient: No
[2019-11-27] MEDS ORDERED: ALBUTEROL SO4 HFA INHALER IH PRN (23:51)
[2019-11-28] MEDS ORDERED: CEFTRIAXONE 1 GM/50 ML BAG ONE ×2 (00:14→02:29)
[2019-11-28] MEDS ORDERED: morphine SULFATE 4 MG/ML VIAL ONE (00:15)
[2019-11-28] MEDS ORDERED: ACETAMINOPHEN 1000 MG/100 ML VIAL (NON FORMULARY) IVPB PRN (00:59)
[2019-11-28] MEDS: DEXTROSE 5%-0.45% SALINE 1,000 ML IV SCH (05:06)
[2019-11-28 06:25] LABS: BASO % 0.5 % (0-2.0); EOS % 2.5 % (0-4.5); HEMATOCRIT 37.9 % (32.4-45.2); HEMOGLOBIN 12.5 GM/dL (10.7-15.3); LYMPH % 27.2 % (8-40); MCH 29.3 pg (25.7-33.7); MEAN CELL VOLUME 88.8 fl (80-96); MEAN PLT VOLUME 8.1 fl (7.5-11.1); MONO % 8.4 % (3.8-10.2); NEUT % 61.4 % (42.8-82.8); PLATELET COUNT 271 K/MM3 (134-434); RBC 4.27 M/mm3 (3.60-5.2); RDW 14.1 % (11.6-15.6); WHITE BLOOD COUNT 9.4 K/mm3 (4.0-10.0)
[2019-11-28 07:05] LABS: ALBUMIN 3.8 g/dl (3.4-5.0); BILIRUBIN,TOTAL 0.6 mg/dL (0.2-1); BLOOD UREA NITROGEN 12.7 mg/dL (7-18); CALCIUM 9.2 mg/dL (8.5-10.1); CREATININE 0.9 mg/dL (0.55-1.3); POTASSIUM 4.5 mmol/L (3.5-5.1); TOT PROT 6.8 g/dl (6.4-8.2)
[2019-11-28] MEDS ORDERED: ENOXAPARIN NA (PORCINE) 40 MG/0.4 ML DISP.SYRIN SQ ONE (09:07)
[2019-11-28] MEDS ORDERED: amLODIPine BESYLATE 5 MG TABLET (FP) ONE (09:07)
[2019-11-28] MEDS ORDERED: MULTIVITAMINS (DAILY MVI) TABLET (FP) ONE (09:07)
[2019-11-28] MEDS ORDERED: COLCHICINE 0.6 MG CAP ONE (09:07)
[2019-11-28] MEDS: COLCHICINE 0.6 MG CAP PO SCH (09:27)
[2019-11-28] MEDS: ENOXAPARIN NA (PORCINE) 40 MG/0.4 ML DISP.SYRIN SQ SCH (09:28)
[2019-11-28] MEDS: amLODIPine BESYLATE 5 MG TABLET (FP) PO SCH (09:28)
[2019-11-28] MEDS: ALLOPURINOL 100 MG TABLET (FP) PO SCH (09:28)
[2019-11-28] MEDS: MULTIVITAMINS (DAILY MVI) TABLET (FP) PO SCH (09:28)
[2019-11-28] MEDS ORDERED: PATIENT'S OWN MEDICATION (NON-FORMULARY) (Salmeterol/Fluticasone [Advair 500mcg/50mcg -] 1 IH SCH (10:00)
[2019-11-28] MEDS ORDERED: PATIENT'S OWN MEDICATION (NON-FORMULARY) (Tiotropium Bromide [Spiriva] 1 INH) PO SCH (10:00)
[2019-11-28] MEDS: TIOTROPIUM BROMIDE 2.5 MCG (SPIRIVA) RESPIMAT INHALER IH SCH (11:27)
[2019-11-28] MEDS: BUDESONIDE/FORMETEROL FUMARATE 160/4.5 mcg INHALER IH SCH ×2 (11:27→23:21)
--- NOTE | 2019-11-28 13:00 | CONSULT ---
Consult Consult Specialty:: Surgery Reason for Consultation:: r/o diverticulitis vs. omental infarct - History of Present Illness Chief Complaint: abdominal pain History of Present Illness: This is a 59 y/o female with a significant medical history of TIAs (01/2019, 01/2018), Migraine Headaches, RLS, HTN, HLD, DM, COPD, Asthma, Endometrial Ca (s/p Total Hysterectomy, 12/2017) no chemo/RT, Gout, +COVID Infection (06/2019), Bacteremia. Who presents to the ED for evaluation of progressive generalized abdominal pain, left flank pain, and dysuria x2 days. Patient reports having a CT scan of her abdomen performed at [facility], last October and was told that she had 2 hernias that were fat-containing. Patient reports seeing a surgeon recently for the hernia, but did not like the way he spoke to her regarding her weight. Patient was seen and evaluated by her PMD today, who was concerned for potential incarceration. She denies fevers, chills, constipation, diarrhea, vaginal bleeding, rectal bleeding, hematuria. Patient reports she has had 2 soft bowel movements today which is her usual pattern. Patient denies sick contacts or recent travel. Patient reports having a Colonoscopy 2011- but does not recall the results.Patient had open umbilical hernia repair in 2018. CT A/P in ED showed new epigastric fat-containing hernia and possible omental infarct vs. diverticulitis. Patient reports to have history of diverticulitis in the past. - History Source History Provided By: Patient Limitations to Obtaining History: No Limitations - Past Medical History Pulmonary: Yes: COPD Gastrointestinal: Yes: Diverticulitis, Diverticulosis ...: No Musculoskeletal: Yes: Chronic low back pain Endocrine: Yes: Other (morbid obesity) - Alcohol/Substance Use Hx Alcohol Use: No - Smoking History Smoking history: Never smoked Have you smoked in the past 12 months: No Home Medications - Allergies Allergies/Adverse Reactions: Allergies Allergy/AdvReac Type Severity Reaction Status Date / Time montelukast sodium Allergy Mild Itching Verified 11/27/19 18:42 [From Singulair] pramipexole [From Mirapex] Allergy Verified 11/27/19 18:42 topiramate [From Topamax] AdvReac Verified 11/27/19 18:42 NALDECON AdvReac Mild NOSE BLEEDS Uncoded 11/27/19 18:42 - Home Medications Home Medications: Ambulatory Orders Salmeterol/Fluticasone [Advair 500Mcg/50Mcg -] 1 inh IH BID 12/24/12 Tiotropium [place] [Spiriva] 1 inh PO DAILY 12/26/12 Amlodipine Besylate 10 mg PO DAILY 03/09/15 Amitriptyline HCl [Elavil -] 50 mg PO HS 01/26/18 Rosuvastatin [Crestor -] 20 mg PO DAILY 03/06/18 Allopurinol [Zyloprim -] 100 mg PO DAILY 01/23/19 Albuterol Sulfate [Proair Hfa] 1 puff IH PRN 11/27/19 Colchicine 0.6 mg PO DAILY 11/27/19 Gabapentin [Neurontin -] 300 mg PO HS 11/27/19 Multivitamins [Tab-A-Vit -] 1 tab PO DAILY 11/27/19 Family Medical History Family Hx Cancer: Mother (Breast) Family Hx Cardiac Disorders: Father (Mitral Valve Prolapse) Family Hx Coronary Artery Disease: Grandmother (maternal) ([place]), Grandmother (paternal) ([place]), Grandfather (maternal) ([place]), Grandfather (paternal) ([place]) Family Hx Diabetes: Grandmother (paternal) Other Family History: Diabetes: Maternal Aunts, Maternal Uncles Physical Exam Vital Signs: Vital Signs Temperature 98.4 F 11/28/19 11:22 Pulse Rate 97 H 11/28/19 11:22 Respiratory Rate 16 11/28/19 11:22 Blood Pressure 110/73 11/28/19 11:22 O2 Sat by Pulse Oximetry (%) 98 11/28/19 11:22 Constitutional: Yes: Obese Eyes: Yes: Conjunctiva Clear HENT: Yes: Normocephalic Neck: Yes: Supple Cardiovascular: Yes: Regular Rate and Rhythm Respiratory: Yes: CTA Bilaterally Gastrointestinal: Yes: Abdomen, Obese, Hernia (barely palpable at epigastric area, infraumbilical scar without umbilical bulge), Tenderness (right lower quadrant) Musculoskeletal: Yes: Back Pain Neurological: Yes: Alert, Oriented Labs: CBC, BMP 11/28/19 05:50 11/28/19 05:50 Imaging - Results Cat Scan: Report Reviewed, Image Reviewed Problem List - Problems (1) Diverticulitis Assessment/Plan: likely above, dougt omental infarct continue IV ABX, bowel rest, and analgesia no surgical intervention necessary at this time Code(s): K57.92 - DVTRCLI OF INTEST, PART UNSP, W/O PERF OR ABSCESS W/O BLEED
[2019-11-28] MEDS ORDERED: MORPHINE SULFATE 2 MG/ML VIAL ONE (13:16)
[2019-11-28] MEDS: morphine SULFATE 4 MG/ML VIAL IVPUSH PRN (13:32)
--- NOTE | 2019-11-28 16:10 | EKG ---
Test Reason : Blood Pressure : / mmHG Vent. Rate : 076 BPM Atrial Rate : 076 BPM P-R Int : 184 ms QRS Dur : 116 ms QT Int : 418 ms P-R-T Axes : 039 054 031 degrees QTc Int : 470 ms NORMAL SINUS RHYTHM INCOMPLETE RIGHT BUNDLE BRANCH BLOCK CANNOT RULE OUT ANTERIOR INFARCT , AGE UNDETERMINED ABNORMAL ECG WHEN COMPARED WITH ECG OF 25-JUN-2019 10:54, INCOMPLETE RIGHT BUNDLE BRANCH BLOCK IS NOW PRESENT Confirmed by MD Ceferino, Bandar ([id number]) on 11/28/2019 4:09:58 PM Referred By: Confirmed By:Bandar De La Vega MD
--- NOTE | 2019-11-28 17:16 | PN ---
Progress Note (short form) - Note Progress Note: Patient is lying in bed with NAD , c/o having an abdominal pain but better now Vital Signs Temperature 97.5 F L 11/28/19 16:56 Pulse Rate 83 11/28/19 16:56 Respiratory Rate 16 11/28/19 11:22 Blood Pressure 124/81 11/28/19 16:56 O2 Sat by Pulse Oximetry (%) 98 11/28/19 16:56 GENERAL: The patient is awake, alert, and fully oriented, in no acute distress. HEAD: Normal with no signs of trauma. EYES: PERRL, extraocular movements intact, sclera anicteric, conjunctiva clear. ENT: Ears normal, oropharynx clear without exudates, moist mucous membranes. NECK: Trachea midline, full range of motion, supple. LUNGS: Breath sounds equal, clear to auscultation bilaterally, no wheezes, no crackles, no accessory muscle use. HEART: Regular rate and rhythm, S1, S2 without murmur, rub or gallop. ABDOMEN: Soft, + tenderness upper abdomen, large abdomen. no rebound, no hepatosplenomegaly, no masses. EXTREMITIES: 2+ pulses, warm, well-perfused, no edema. NEUROLOGICAL: Cranial nerves II through XII grossly intact. Normal speech, gait not observed. PSYCH: Normal mood, normal affect. SKIN: Warm, dry, normal turgor, scratch enamorado on the abdomen. CBCD WBC 9.4 K/mm3 (4.0-10.0) 11/28/19 05:50 RBC 4.27 M/mm3 (3.60-5.2) 11/28/19 05:50 Hgb 12.5 GM/dL (10.7-15.3) 11/28/19 05:50 Hct 37.9 % (32.4-45.2) 11/28/19 05:50 MCV 88.8 fl (80-96) 11/28/19 05:50 MCHC 33.0 g/dl (32.0-36.0) 11/28/19 05:50 RDW 14.1 % (11.6-15.6) 11/28/19 05:50 Plt Count 271 K/MM3 (134-434) 11/28/19 05:50 MPV 8.1 fl (7.5-11.1) 11/28/19 05:50 CMP Sodium 140 mmol/L (136-145) 11/28/19 05:50 Potassium 4.5 mmol/L (3.5-5.1) 11/28/19 05:50 Chloride 106 mmol/L (98-107) 11/28/19 05:50 Carbon Dioxide 33 mmol/L (21-32) H 11/28/19 05:50 Anion Gap 2 MMOL/L (8-16) L 11/28/19 05:50 BUN 12.7 mg/dL (7-18) 11/28/19 05:50 Creatinine 0.9 mg/dL (0.55-1.3) 11/28/19 05:50 Random Glucose 136 mg/dL (74-106) H 11/28/19 05:50 Calcium 9.2 mg/dL (8.5-10.1) 11/28/19 05:50 Total Bilirubin 0.6 mg/dL (0.2-1) 11/28/19 05:50 AST 9 U/L (15-37) L 11/28/19 05:50 ALT 20 U/L (13-61) 11/28/19 05:50 Alkaline Phosphatase 85 U/L (45-117) 11/28/19 05:50 Total Protein 6.8 g/dl (6.4-8.2) 11/28/19 05:50 Albumin 3.8 g/dl (3.4-5.0) 11/28/19 05:50 Current Medications Generic Name Dose Route Start Last Admin Trade Name Freq PRN Reason Stop Dose Admin Acetaminophen 1,000 mg 11/28/19 00:59 Ofirmev Injection - IVPB 11/29/19 00:59 Q6H PRN PAIN LEVEL 4 - 6 Albuterol Sulfate 2 puff 11/27/19 23:51 Ventolin Hfa Inhaler - IH Q6H PRN SHORT OF BREATH/WHEEZING Allopurinol 100 mg 11/28/19 10:00 11/28/19 09:28 Zyloprim - PO 100 mg DAILY KASSIE Administration Amitriptyline HCl 50 mg 11/28/19 22:00 Elavil - PO HS KASSIE Amlodipine Besylate 10 mg 11/28/19 10:00 11/28/19 09:28 Norvasc - PO 10 mg DAILY KASSIE Administration Budesonide/Formoterol Fumarate 2 puff 11/28/19 10:00 11/28/19 11:27 Symbicort 160/4.5mcg - IH Not Given BID [facility] Colchicine 0.6 mg 11/28/19 10:00 11/28/19 09:27 Colcrys PO 0.6 mg DAILY KASSIE Administration Enoxaparin Sodium 40 mg 11/28/19 10:00 11/28/19 09:28 Lovenox - SQ 40 mg DAILY KASSIE Administration Gabapentin 300 mg 11/28/19 22:00 Neurontin - PO HS [facility] Dextrose/Sodium Chloride 1,000 mls @ 75 mls/hr 11/28/19 01:00 11/28/19 05:06 D5-1/2ns - IV 75 mls/hr ASDIR KASSIE Administration Metronidazole 500 mg in 100 mls @ 100 mls/hr 11/28/19 10:00 11/28/19 09:27 Flagyl 500mg Premixed Ivpb - IVPB 100 mls/hr Q8H-IV KASSIE Administration Ceftriaxone Sodium 2 gm/ 50 mls @ 100 mls/hr 11/29/19 10:00 Dextrose IVPB DAILY [facility] Protocol Morphine Sulfate 4 mg 11/28/19 05:00 11/28/19 13:32 Morphine Sulfate IVPUSH 4 mg Q6H PRN Administration PAIN LEVEL 6-10 Multivitamins/Minerals/Vitamin C 1 tab 11/28/19 10:00 11/28/19 09:28 Tab-A-Vit - PO 1 tab DAILY [facility] Administration Rosuvastatin Calcium 10 mg 11/28/19 22:00 Crestor - PO [facility] Tiotropium [place] 2 puff 11/28/19 10:00 11/28/19 11:27 Spiriva Respimat IH Not Given DAILY [facility] Home Medications Medication Instructions Recorded Salmeterol/Fluticasone [Advair 1 inh IH BID 12/24/12 500Mcg/50Mcg -] Tiotropium [place] [Spiriva] 1 inh PO DAILY 12/26/12 Amlodipine Besylate 10 mg PO DAILY 03/09/15 Amitriptyline HCl [Elavil -] 50 mg PO HS 01/26/18 Rosuvastatin [Crestor -] 20 mg PO DAILY 03/06/18 Allopurinol [Zyloprim -] 100 mg PO DAILY 01/23/19 Albuterol Sulfate [Proair Hfa] 1 puff IH PRN 11/27/19 Colchicine 0.6 mg PO DAILY 11/27/19 Gabapentin [Neurontin -] 300 mg PO HS 11/27/19 Multivitamins [Tab-A-Vit -] 1 tab PO DAILY 11/27/19 Urine Test Results Urine Color Yellow 11/27/19 18:18 Urine Appearance Clear 11/27/19 18:18 Urine pH 6.5 (5.0-8.0) 11/27/19 18:18 Ur Specific [place] 1.006 (1.010-1.035) L 11/27/19 18:18 Urine Protein Negative (NEGATIVE) 11/27/19 18:18 Urine Glucose (UA) Negative (NEGATIVE) 11/27/19 18:18 Urine Ketones Negative (NEGATIVE) 11/27/19 18:18 Urine Blood 3+ (NEGATIVE) H 11/27/19 18:18 Urine Nitrite Negative (NEGATIVE) 11/27/19 18:18 Urine Bilirubin Negative (NEGATIVE) 11/27/19 18:18 Ur Leukocyte Esterase 1+ (NEGATIVE) H 11/27/19 18:18 Urine Test Results Urine Color Yellow 11/27/19 18:18 Urine Appearance Clear 11/27/19 18:18 Urine pH 6.5 (5.0-8.0) 11/27/19 18:18 Ur Specific [place] 1.006 (1.010-1.035) L 11/27/19 18:18 Urine Protein Negative (NEGATIVE) 11/27/19 18:18 Urine Glucose (UA) Negative (NEGATIVE) 11/27/19 18:18 Urine Ketones Negative (NEGATIVE) 11/27/19 18:18 Urine Blood 3+ (NEGATIVE) H 11/27/19 18:18 Urine Nitrite Negative (NEGATIVE) 11/27/19 18:18 Urine Bilirubin Negative (NEGATIVE) 11/27/19 18:18 Ur Leukocyte Esterase 1+ (NEGATIVE) H 11/27/19 18:18 assessment and plan: This is a 59 y/o female with a significant medical history of TIAs (01/2019, 01/2018), Migraine Headaches, RLS, HTN, HLD, DM, COPD, Asthma, Endometrial Ca (s/p Total Hysterectomy, 12/2017) no chemo/RT, Gout, +COVID Infection (06/2019), Bacteremia. Who presents to the ED for evaluation of progressive generalized abdominal pain, left flank pain, and dysuria x2 days. #Acute Diverticulitis vs omental infarction : on IV rocephin/flagyl, clears, surgery and GI consulted #Abdominal pain: improving.monitor # UTI: on IV abx # COPD : continue home meds # HTN : on Amlodipine continue #T2DM: SS with coverage #Hx TIA/stroke w/o resid #class 3 obesity (BMI >= 40):weight reduction and lifestyle modifications #covid is pending DVt px: SCds, lovenox Visit type - Emergency Visit Emergency Visit: Yes ED Registration Date: 11/27/19 Care time: The patient presented to the Emergency Department on the above date and was hospitalized for further evaluation of their emergent condition. - New Patient This patient is new to me today: Yes Date on this admission: 11/28/19 - Critical Care Critical Care patient: No - Discharge Referral Referred to [facility] Med P.C.: No
--- NOTE | 2019-11-28 22:49 | CON.GI ---
Consult Consult Specialty:: GI Referred by:: Hospitalist Service Reason for Consultation:: abdominal pain - History of Present Illness Chief Complaint: Abdominal pain History of Present Illness: 59F admitted yesterday for evaluation of days of progressive abdominal pain. CT scan showed periumbilical fat contaiing hernia and foci of pericolonic soft tissue stranding at junction of sigmoid / descening colon raising question of om ental infarct vs. diverticulitis GI consult placed this evening. Had colonoscopy 2011 uncertain of result. No change in bowel habits or rectal bleeding. No diarrhea. No family history of colon cancer or other GI malignancy. Pain persists. Gives history of diverticulitis in the past. Seen by surgery. felt that current clinical picture favored diverticulitis. 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 Cardio/Vascular: Yes: Hyperlipdemia Pulmonary: Yes: COPD Gastrointestinal: Yes: Diverticulitis, Diverticulosis Reproductive: Yes: Other (endometiral cancer) ...LMP Comment: 15 years ago ...: No Heme/Onc: Yes: Other (DVT) Musculoskeletal: Yes: Chronic low back pain Endocrine: Yes: Diabetes Mellitus (DM II), Other (morbid obesity) - Past Surgical History Past Surgical History: Yes: , Hernia Repair (Umbilical hernia), Hysterectomy (ROSEANNE/BSO) Additional Surgical History: Right meniscus repair - Alcohol/Substance Use Hx Alcohol Use: No - Smoking History Smoking history: Never smoked Have you smoked in the past 12 months: No - Social History Usual Living Arrangement: With Spouse ADL: Independent Place of : [facility] History of Recent Travel: No Home Medications - Allergies Allergies/Adverse Reactions: Allergies Allergy/AdvReac Type Severity Reaction Status Date / Time montelukast sodium Allergy Mild Itching Verified 11/27/19 18:42 [From Singulair] pramipexole [From Mirapex] Allergy Verified 11/27/19 18:42 topiramate [From Topamax] AdvReac Verified 11/27/19 18:42 NALDECON AdvReac Mild NOSE BLEEDS Uncoded 11/27/19 18:42 - Home Medications Home Medications: Ambulatory Orders Salmeterol/Fluticasone [Advair 500Mcg/50Mcg -] 1 inh IH BID 12/24/12 Tiotropium [place] [Spiriva] 1 inh PO DAILY 12/26/12 Amlodipine Besylate 10 mg PO DAILY 03/09/15 Amitriptyline HCl [Elavil -] 50 mg PO HS 01/26/18 Rosuvastatin [Crestor -] 20 mg PO DAILY 03/06/18 Allopurinol [Zyloprim -] 100 mg PO DAILY 01/23/19 Albuterol Sulfate [Proair Hfa] 1 puff IH PRN 11/27/19 Colchicine 0.6 mg PO DAILY 11/27/19 Gabapentin [Neurontin -] 300 mg PO HS 11/27/19 Multivitamins [Tab-A-Vit -] 1 tab PO DAILY 11/27/19 Family Medical History Family Hx Cancer: Mother (Breast) Family Hx Cardiac Disorders: Father (Mitral Valve Prolapse) Family Hx Coronary Artery Disease: Grandmother (maternal) (DC), Grandmother (paternal) (DC), Grandfather (maternal) (DC), Grandfather (paternal) (DC) Family Hx Diabetes: Grandmother (paternal) Other Family History: Diabetes: Maternal Aunts, Maternal Uncles. Mother: : 79: lung Ca. Father: Alive: MVP, heart issues. 1 brother: healthy. 2 sons, healthy. No family history of colorectal ca or other GI malignancy Review of Systems - Review of Systems Constitutional: denies: Fever Cardiovascular: denies: Chest Pain Respiratory: denies: Cough Gastrointestinal: reports: Abdominal Pain. denies: Constipation, Diarrhea, Melena, Rectal Bleeding, Vomiting Musculoskeletal: denies: Back Pain Physical Exam-GI Vital Signs: Vital Signs Temperature 98.5 F 11/28/19 18:49 Pulse Rate 80 11/28/19 18:49 Respiratory Rate 20 11/28/19 18:57 Blood Pressure 164/76 11/28/19 18:49 O2 Sat by Pulse Oximetry (%) 95 11/28/19 18:57 Constitutional: Yes: Calm Eyes: No: Sclera Icterus Cardiovascular: Yes: Regular Rate and Rhythm. No: Murmur Respiratory: Yes: CTA Bilaterally Gastrointestinal Inspection: Yes: Scars. No: Distention ...Auscultate: Yes: Normoactive Bowel Sounds ...Palpate: Yes: Soft, Tenderness (TTP LLQ and predominantly LUQ) ...Percussion: No: Tympanitic Edema: LLE: Trace, RLE: Trace Neurological: Yes: Alert Labs: CBC, BMP 11/28/19 05:50 11/28/19 05:50 INR, PTT INR 0.90 (0.83-1.09) 11/27/19 18:10 Problem List - Problems (1) Diverticulitis Assessment/Plan: Vs Omental infarct Seen by surgery. Feels that diverticulitis fits the picture Advise: NPO IV Hydration IV Abx per primary team AM Labs including CRP Code(s): K57.92 - DVTRCLI OF INTEST, PART UNSP, W/O PERF OR ABSCESS W/O BLEED
[2019-11-28] MEDS: ROSUVASTATIN CA 10 MG TABLET (FP) PO SCH (23:19)
[2019-11-28] MEDS: GABAPENTIN 300 MG CAPSULE PO SCH (23:20)
[2019-11-28] MEDS: AMITRIPTYLINE HCL 25 MG TABLET PO SCH (23:20)
[2019-11-29] MEDS: DEXTROSE 5%-0.45% SALINE 1,000 ML IV SCH (02:17)
[2019-11-29 08:26] LABS: BASO % 0.5 % (0-2.0); EOS % 3.2 % (0-4.5); HEMATOCRIT 38.5 % (32.4-45.2); HEMOGLOBIN 12.6 GM/dL (10.7-15.3); LYMPH % 24.1 % (8-40); MCH 29.3 pg (25.7-33.7); MCHC 32.9 g/dl (32.0-36.0); MEAN CELL VOLUME 89.2 fl (80-96); MEAN PLT VOLUME 8.1 fl (7.5-11.1); MONO % 8.7 % (3.8-10.2); NEUT % 63.5 % (42.8-82.8); PLATELET COUNT 283 K/MM3 (134-434); RBC 4.31 M/mm3 (3.60-5.2); RDW 13.8 % (11.6-15.6); WHITE BLOOD COUNT 8.3 K/mm3 (4.0-10.0)
[2019-11-29 09:10] LABS: ALBUMIN 3.6 g/dl (3.4-5.0); BILIRUBIN,TOTAL 0.7 mg/dL (0.2-1); BLOOD UREA NITROGEN 12.7 mg/dL (7-18); CALCIUM 9.1 mg/dL (8.5-10.1); CREATININE 0.9 mg/dL (0.55-1.3); MAGNESIUM 2.2 mg/dL (1.8-2.4); PHOSPHOROUS 4.8 mg/dL (2.5-4.9); POTASSIUM 3.8 mmol/L (3.5-5.1); TOT PROT 6.7 g/dl (6.4-8.2)
[2019-11-29] MEDS ORDERED: PT OWN MED DRAWER 7, Y5N ONE (09:32)
[2019-11-29] MEDS ORDERED: DEXTROSE 5%-WATER - 50 ML IVPB ONE (09:33)
[2019-11-29] MEDS: COLCHICINE 0.6 MG CAP PO SCH (09:43)
[2019-11-29] MEDS: ENOXAPARIN NA (PORCINE) 40 MG/0.4 ML DISP.SYRIN SQ SCH (09:43)
[2019-11-29] MEDS: ALLOPURINOL 100 MG TABLET (FP) PO SCH (09:43)
[2019-11-29] MEDS: MULTIVITAMINS (DAILY MVI) TABLET (FP) PO SCH (09:43)
[2019-11-29] MEDS: amLODIPine BESYLATE 5 MG TABLET (FP) PO SCH (09:44)
[2019-11-29] MEDS: BUDESONIDE/FORMETEROL FUMARATE 160/4.5 mcg INHALER IH SCH ×2 (09:45→21:32)
--- NOTE | 2019-11-29 11:03 | PN.GI ---
GI Progress Note Subjective: No acute events States that pain improved - Objective Vital Signs: Vital Signs Temperature 98.6 F 11/29/19 04:00 Pulse Rate 71 11/29/19 04:00 Respiratory Rate 11/29/19 04:00 Blood Pressure 142/86 11/29/19 04:00 O2 Sat by Pulse Oximetry (%) 96 11/29/19 08:29 Constitutional: Calm Eyes: No: Sclera Icterus Cardiovascular: Yes: Regular Rate and Rhythm Respiratory: Yes: CTA Bilaterally Gastrointestinal Inspection: No: Distention ...Auscultate: Yes: Normoactive Bowel Sounds ...Palpate: Yes: Soft, Tenderness (marked TTP left upper flank). No: Hepatomegaly, Splenomegaly ...Percussion: No: Tympanitic Edema: Yes Edema: LLE: Trace, RLE: Trace Neurological: Yes: Alert Labs: CBC, BMP 11/29/19 07:58 11/29/19 07:58 INR, PTT INR 0.90 (0.83-1.09) 11/27/19 18:10 Problem List - Problems (1) Diverticulitis Assessment/Plan: vs. omental infarct / epiploic appendigitis Still with marked TTP left flank. Reviewed CT scan. Appears that the location of the inflammatory changes correlates with where the majority of her tenderness is located: Advise: NPO IV Abx IV hydration Surgical follow-up Code(s): K57.92 - DVTRCLI OF INTEST, PART UNSP, W/O PERF OR ABSCESS W/O BLEED
[2019-11-29] MEDS: CEFTRIAXONE 2 GM in DEXTROSE 5%-WATER - 50 ML IVPB SCH (11:13)
[2019-11-29] MEDS: TIOTROPIUM BROMIDE 2.5 MCG (SPIRIVA) RESPIMAT INHALER IH SCH (11:22)
--- NOTE | 2019-11-29 16:09 | PN ---
Physical Exam: SUBJECTIVE: Patient seen and examined bedside. There were no acute events overnight. This am she reports her pain is 4/10 and much improved. She does report being hungry as her last meal was Saturday morning (coffee and Nepali yogurt). Last BM was yesterday; formed, non-bloody non-mucous. OBJECTIVE: Vital Signs Period Temp Pulse Resp BP Sys/Rodgers Pulse Ox Last 24 Hr 97.4 F-98.6 F 71-86 20-20 124-170/70-86 95-99 GENERAL: The patient is awake, alert, and fully oriented, in no acute distress. Obese. HEAD: Normal with no signs of trauma. EYES: PERRL, extraocular movements intact, sclera anicteric, conjunctiva clear. No ptosis. ENT: Ears normal, nares patent, oropharynx clear without exudates, moist mucous membranes. NECK: Trachea midline, full range of motion, supple. LUNGS: Breath sounds equal, clear to auscultation bilaterally, no wheezes, no crackles, no accessory muscle use. HEART: Regular rate and rhythm, S1, S2 without murmur, rub or gallop. ABDOMEN: Soft, TTP in LLQ, nondistended, normoactive bowel sounds, no guarding, no rebound, no hepatosplenomegaly, no masses. EXTREMITIES: 2+ pulses, warm, well-perfused, no edema. NEUROLOGICAL: Cranial nerves II through XII grossly intact. Normal speech, gait not observed. PSYCH: Normal mood, normal affect. SKIN: Warm, dry, normal turgor, no rashes or lesions noted Laboratory Results - last 24 hr 11/28/19 11/28/19 11/29/19 00:00 23:18 07:58 WBC 8.3 RBC 4.31 Hgb 12.6 Hct 38.5 MCV 89.2 MCH 29.3 MCHC 32.9 RDW 13.8 Plt Count 283 MPV 8.1 Absolute Neuts (auto) 5.3 Neutrophils % 63.5 Lymphocytes % 24.1 Monocytes % 8.7 Eosinophils % 3.2 Basophils % 0.5 Nucleated RBC % 0 Sodium Potassium Chloride Carbon Dioxide Anion Gap BUN Creatinine Est GFR (CKD-EPI)AfAm Est GFR (CKD-EPI)NonAf POC Glucometer 96 Random Glucose Calcium Phosphorus Magnesium Total Bilirubin AST ALT Alkaline Phosphatase Total Protein Albumin COVID-19 (GARRETT) Not detected 11/29/19 07:58 WBC RBC Hgb Hct MCV MCH MCHC RDW Plt Count MPV Absolute Neuts (auto) Neutrophils % Lymphocytes % Monocytes % Eosinophils % Basophils % Nucleated RBC % Sodium 140 Potassium 3.8 Chloride 104 Carbon Dioxide 26 Anion Gap 10 BUN 12.7 Creatinine 0.9 Est GFR (CKD-EPI)AfAm 81.11 Est GFR (CKD-EPI)NonAf 69.99 POC Glucometer Random Glucose 104 Calcium 9.1 Phosphorus 4.8 Magnesium 2.2 Total Bilirubin 0.7 AST 12 L ALT 21 Alkaline Phosphatase 81 Total Protein 6.7 Albumin 3.6 COVID-19 (GARRETT) Active Medications Generic Name Dose Route Start Last Admin Trade Name Freq PRN Reason Stop Dose Admin Albuterol Sulfate 2 puff 11/27/19 23:51 Ventolin Hfa Inhaler - IH Q6H PRN SHORT OF BREATH/WHEEZING Allopurinol 100 mg 11/28/19 10:00 11/29/19 09:43 Zyloprim - PO 100 mg DAILY KASSIE Administration Amitriptyline HCl 50 mg 11/28/19 22:00 11/28/19 23:20 Elavil - PO 50 mg HS KASSIE Administration Amlodipine Besylate 10 mg 11/28/19 10:00 11/29/19 09:44 Norvasc - PO 10 mg DAILY KASSIE Administration Budesonide/Formoterol Fumarate 2 puff 11/28/19 10:00 11/29/19 09:45 Symbicort 160/4.5mcg - IH 2 puff BID KASSIE Administration Colchicine 0.6 mg 11/28/19 10:00 11/29/19 09:43 Colcrys PO 0.6 mg DAILY KASSIE Administration Enoxaparin Sodium 40 mg 11/28/19 10:00 11/29/19 09:43 Lovenox - SQ 40 mg DAILY KASSIE Administration Gabapentin 300 mg 11/28/19 22:00 11/28/19 23:20 Neurontin - PO 300 mg HS KASSIE Administration Dextrose/Sodium Chloride 1,000 mls @ 75 mls/hr 11/28/19 01:00 11/29/19 02:17 D5-1/2ns - IV 75 mls/hr ASDIR KASSIE Administration Metronidazole 500 mg in 100 mls @ 100 mls/hr 11/28/19 10:00 11/29/19 09:42 Flagyl 500mg Premixed Ivpb - IVPB 100 mls/hr Q8H-IV KASSIE Administration Ceftriaxone Sodium 2 gm/ 50 mls @ 100 mls/hr 11/29/19 10:00 11/29/19 11:13 Dextrose IVPB 100 mls/hr DAILY KASSIE Administration Protocol Morphine Sulfate 4 mg 11/28/19 05:00 11/28/19 13:32 Morphine Sulfate IVPUSH 4 mg Q6H PRN Administration PAIN LEVEL 6-10 Multivitamins/Minerals/Vitamin C 1 tab 11/28/19 10:00 11/29/19 09:43 Tab-A-Vit - PO 1 tab DAILY KASSIE Administration Non-Formulary Medication 1 each 11/29/19 22:00 Fluticasone Propion/Salmeterol [Fluticasone-Salmeterol 500-50] IH BID KASSIE Rosuvastatin Calcium 10 mg 11/28/19 22:00 11/28/19 23:19 Crestor - PO 10 mg HS KASSIE Administration Tiotropium [place] 2 puff 11/28/19 10:00 11/29/19 11:22 Spiriva Respimat IH 2 puff DAILY KASSIE Administration ASSESSMENT/PLAN: 59 y/o female PMH HTN, HLD, COPD, asthma, JACKELYN on CPAP at night, TIA, endometrial cancer, and COVID-19 c/o abdominal pain, CT + for, admitted for acute diverticulitis and UTI. # Acute diverticulitis - Rocephin/flagyl - Clear liquid diet - Consult surgery and GI # UTI - Covered by ceftriaxone # COPD - Spiriva, symbicort and albuterol # HTN - Amlodipine 10 mg po qd # DM - ISS - BGM ACHS #Hx TIA/stroke w/o resid #class 3 obesity (BMI >= 40) - Weight reduction and lifestyle modifications # FEN - NS - Cont. to monitor and replete as appropriate with goal - NPO # DVT ppx - Lovenox # Disposition - Med/surg Salomón Cummings MD Visit type - Emergency Visit Emergency Visit: No - New Patient This patient is new to me today: Yes Date on this admission: 11/29/19 - Critical Care Critical Care patient: No ATTENDING PHYSICIAN STATEMENT I saw and evaluated the patient. I reviewed the resident's note and discussed the case with the resident. I agree with the resident's findings and plan as documented. SUBJECTIVE: OBJECTIVE: ASSESSMENT AND PLAN:
[2019-11-29] MEDS: SODIUM CHLORIDE 1,000 ML IV SCH (17:15)
--- NOTE | 2019-11-29 18:37 | PN ---
Teaching Attending Note Name of Resident: Salomón Cummings ATTENDING PHYSICIAN STATEMENT I saw and evaluated the patient. I reviewed the resident's note and discussed the case with the resident. I agree with the resident's findings and plan as documented. SUBJECTIVE: Patient continues to have pain left flank area OBJECTIVE: Vital Signs Temperature 98.6 F 11/29/19 18:10 Pulse Rate 83 11/29/19 18:10 Respiratory Rate 20 11/29/19 18:10 Blood Pressure 155/70 11/29/19 18:10 O2 Sat by Pulse Oximetry (%) 97 11/29/19 18:10 PE;per resident's note left flank pain tenderness CBCD WBC 8.3 K/mm3 (4.0-10.0) 11/29/19 07:58 RBC 4.31 M/mm3 (3.60-5.2) 11/29/19 07:58 Hgb 12.6 GM/dL (10.7-15.3) 11/29/19 07:58 Hct 38.5 % (32.4-45.2) 11/29/19 07:58 MCV 89.2 fl (80-96) 11/29/19 07:58 MCHC 32.9 g/dl (32.0-36.0) 11/29/19 07:58 RDW 13.8 % (11.6-15.6) 11/29/19 07:58 Plt Count 283 K/MM3 (134-434) 11/29/19 07:58 MPV 8.1 fl (7.5-11.1) 11/29/19 07:58 CMP Sodium 140 mmol/L (136-145) 11/29/19 07:58 Potassium 3.8 mmol/L (3.5-5.1) 11/29/19 07:58 Chloride 104 mmol/L (98-107) 11/29/19 07:58 Carbon Dioxide 26 mmol/L (21-32) 11/29/19 07:58 Anion Gap 10 MMOL/L (8-16) 11/29/19 07:58 BUN 12.7 mg/dL (7-18) 11/29/19 07:58 Creatinine 0.9 mg/dL (0.55-1.3) 11/29/19 07:58 Random Glucose 104 mg/dL (74-106) 11/29/19 07:58 Calcium 9.1 mg/dL (8.5-10.1) 11/29/19 07:58 Total Bilirubin 0.7 mg/dL (0.2-1) 11/29/19 07:58 AST 12 U/L (15-37) L 11/29/19 07:58 ALT 21 U/L (13-61) 11/29/19 07:58 Alkaline Phosphatase 81 U/L (45-117) 11/29/19 07:58 Total Protein 6.7 g/dl (6.4-8.2) 11/29/19 07:58 Albumin 3.6 g/dl (3.4-5.0) 11/29/19 07:58 Current Medications Generic Name Dose Route Start Last Admin Trade Name Freq PRN Reason Stop Dose Admin Albuterol Sulfate 2 puff 11/27/19 23:51 Ventolin Hfa Inhaler - IH Q6H PRN SHORT OF BREATH/WHEEZING Allopurinol 100 mg 11/28/19 10:00 11/29/19 09:43 Zyloprim - PO 100 mg DAILY KASSIE Administration Amitriptyline HCl 50 mg 11/28/19 22:00 11/28/19 23:20 Elavil - PO 50 mg HS KASSIE Administration Amlodipine Besylate 10 mg 11/28/19 10:00 11/29/19 09:44 Norvasc - PO 10 mg DAILY KASSIE Administration Budesonide/Formoterol Fumarate 2 puff 11/28/19 10:00 11/29/19 09:45 Symbicort 160/4.5mcg - IH 2 puff BID KASSIE Administration Colchicine 0.6 mg 11/28/19 10:00 11/29/19 09:43 Colcrys PO 0.6 mg DAILY KASSIE Administration Enoxaparin Sodium 40 mg 11/28/19 10:00 11/29/19 09:43 Lovenox - SQ 40 mg DAILY KASSIE Administration Gabapentin 300 mg 11/28/19 22:00 11/28/19 23:20 Neurontin - PO 300 mg HS KASSIE Administration Metronidazole 500 mg in 100 mls @ 100 mls/hr 11/28/19 10:00 11/29/19 17:15 Flagyl 500mg Premixed Ivpb - IVPB 100 mls/hr Q8H-IV KASSIE Administration Ceftriaxone Sodium 2 gm/ 50 mls @ 100 mls/hr 11/29/19 10:00 11/29/19 11:13 Dextrose IVPB 100 mls/hr DAILY KASSIE Administration Protocol Sodium Chloride 1,000 mls @ 75 mls/hr 11/29/19 16:45 11/29/19 17:15 Normal Saline - IV 75 mls/hr ASDIR KASSIE Administration Morphine Sulfate 4 mg 11/28/19 05:00 11/28/19 13:32 Morphine Sulfate IVPUSH 4 mg Q6H PRN Administration PAIN LEVEL 6-10 Multivitamins/Minerals/Vitamin C 1 tab 11/28/19 10:00 11/29/19 09:43 Tab-A-Vit - PO 1 tab DAILY KASSIE Administration Rosuvastatin Calcium 10 mg 11/28/19 22:00 11/28/19 23:19 Crestor - PO 10 mg HS KASSIE Administration Tiotropium [place] 2 puff 11/28/19 10:00 11/29/19 11:22 Spiriva Respimat IH 2 puff DAILY KASSIE Administration Home Medications Medication Instructions Recorded Salmeterol/Fluticasone [Advair 1 inh IH BID 12/24/12 500Mcg/50Mcg -] Tiotropium [place] [Spiriva] 1 inh PO DAILY 12/26/12 Amlodipine Besylate 10 mg PO DAILY 03/09/15 Amitriptyline HCl [Elavil -] 25 mg PO HS 01/26/18 Rosuvastatin [Crestor -] 20 mg PO DAILY 03/06/18 Allopurinol [Zyloprim -] 100 mg PO DAILY 01/23/19 Albuterol Sulfate [Proair Hfa] 1 puff IH PRN 11/27/19 Colchicine 0.6 mg PO DAILY 11/27/19 Gabapentin [Neurontin -] 300 mg PO HS PRN 11/27/19 Fluticasone Propion/Salmeterol 1 each IH BID 11/29/19 [Fluticasone-Salmeterol 500-50] Meloxicam 7.5 mg PO DAILY PRN 11/29/19 Mirabegron [Myrbetriq] 25 mg PO DAILY 11/29/19 Tiotropium [place] [Spiriva] 18 mcg IH DAILY 11/29/19 ASSESSMENT AND PLAN: This is a 59 y/o female with a significant medical history of TIAs (01/2019, 01/2018), Migraine Headaches, RLS, HTN, HLD, DM, COPD, Asthma, Endometrial Ca (s/p Total Hysterectomy, 12/2017) no chemo/RT, Gout, +COVID Infection (06/2019), Bacteremia. Who presents to the ED for evaluation of progressive generalized abdominal pain, left flank pain, and dysuria x2 days. #Acute Diverticulitis vs omental infarction : on IV rocephin/flagyl, clears, surgery and GI and surgery on case #Abdominal pain: improving.monitor # UTI: on IV abx # COPD : continue home meds # HTN : on Amlodipine continue #T2DM: SS with coverage #Hx TIA/stroke w/o resid #class 3 obesity (BMI >= 40):weight reduction and lifestyle modifications #covid is pending DVt px: SCds, lovenox
[2019-11-29] MEDS: ROSUVASTATIN CA 10 MG TABLET (FP) PO SCH (21:29)
[2019-11-29] MEDS: GABAPENTIN 300 MG CAPSULE PO SCH (21:30)
[2019-11-29] MEDS: morphine SULFATE 4 MG/ML VIAL IVPUSH PRN (21:30)
[2019-11-29] MEDS: AMITRIPTYLINE HCL 25 MG TABLET PO SCH (21:32)
[2019-11-29] MEDS ORDERED: PATIENT'S OWN MEDICATION (NON-FORMULARY) (Fluticasone Propion/Salmeterol [Fluticasone-Salm IH SCH (22:00)
[2019-11-30] MEDS: morphine SULFATE 4 MG/ML VIAL IVPUSH PRN ×2 (02:37→22:32)
[2019-11-30 09:18] LABS: ALBUMIN 3.5 g/dl (3.4-5.0); BILIRUBIN,TOTAL 0.6 mg/dL (0.2-1); CALCIUM 8.6 mg/dL (8.5-10.1); CREATININE 0.9 mg/dL (0.55-1.3); PHOSPHOROUS 4.1 mg/dL (2.5-4.9); POTASSIUM 3.8 mmol/L (3.5-5.1); TOT PROT 6.5 g/dl (6.4-8.2)
[2019-11-30 09:23] LABS: HEMATOCRIT 37.3 % (32.4-45.2); HEMOGLOBIN 12.6 GM/dL (10.7-15.3); MCH 30.1 pg (25.7-33.7); MCHC 33.8 g/dl (32.0-36.0); MEAN PLT VOLUME 8.6 fl (7.5-11.1); PLATELET COUNT 262 K/MM3 (134-434); RBC 4.19 M/mm3 (3.60-5.2); RDW 13.9 % (11.6-15.6); WHITE BLOOD COUNT 8.6 K/mm3 (4.0-10.0)
[2019-11-30] MEDS: SODIUM CHLORIDE 1,000 ML IV SCH ×2 (09:38→18:17)
[2019-11-30] MEDS: MULTIVITAMINS (DAILY MVI) TABLET (FP) PO SCH (09:39)
[2019-11-30] MEDS: amLODIPine BESYLATE 5 MG TABLET (FP) PO SCH (09:39)
[2019-11-30] MEDS: COLCHICINE 0.6 MG CAP PO SCH (09:39)
[2019-11-30] MEDS: ALLOPURINOL 100 MG TABLET (FP) PO SCH (09:39)
[2019-11-30] MEDS: ENOXAPARIN NA (PORCINE) 40 MG/0.4 ML DISP.SYRIN SQ SCH (09:40)
[2019-11-30] MEDS: TIOTROPIUM BROMIDE 2.5 MCG (SPIRIVA) RESPIMAT INHALER IH SCH (09:41)
[2019-11-30] MEDS: BUDESONIDE/FORMETEROL FUMARATE 160/4.5 mcg INHALER IH SCH ×2 (09:41→21:22)
--- NOTE | 2019-11-30 09:51 | PN ---
Physical Exam: SUBJECTIVE: Patient seen and examined. Upon my evaluation, pt complained of abdominal pain rated 2/10 when pt is moving. Pain is 0/10 when pt is lying still on bed. Pt stated she slept throughout the night. Denied any nausea, vomiting. Pt denied BM overnight. OBJECTIVE: Vital Signs Period Temp Pulse Resp BP Sys/Rodgers Pulse Ox Last 24 Hr 97.4 F-98.6 F 80-786 20-20 100-170/66-88 94-100 GENERAL: Somnolent, but arousable. Not in acute distress. HEENT: NCAT, EOMI. On CPAP. Moist mucus membranes. CARDIAC: RRR, S1, S2 present. No murmurs RESPIRATORY: CTA b/l, no wheezes ABDOMEN: Obese, soft, non-distended. Normoactive bowel sounds. Tender to palpation on LUQ. EXTREMITIES: Warm, well-perfused. No edema SKIN: Warm, dry Laboratory Last Values WBC 8.6 K/mm3 (4.0-10.0) 11/30/19 07:20 RBC 4.19 M/mm3 (3.60-5.2) 11/30/19 07:20 Hgb 12.6 GM/dL (10.7-15.3) 11/30/19 07:20 Hct 37.3 % (32.4-45.2) 11/30/19 07:20 MCV 89.0 fl (80-96) 11/30/19 07:20 MCH 30.1 pg (25.7-33.7) 11/30/19 07:20 MCHC 33.8 g/dl (32.0-36.0) 11/30/19 07:20 RDW 13.9 % (11.6-15.6) 11/30/19 07:20 Plt Count 262 K/MM3 (134-434) 11/30/19 07:20 MPV 8.6 fl (7.5-11.1) 11/30/19 07:20 Absolute Neuts (auto) 5.3 K/mm3 (1.5-8.0) 11/29/19 07:58 Neutrophils % 63.5 % (42.8-82.8) 11/29/19 07:58 Lymphocytes % 24.1 % (8-40) 11/29/19 07:58 Monocytes % 8.7 % (3.8-10.2) 11/29/19 07:58 Eosinophils % 3.2 % (0-4.5) 11/29/19 07:58 Basophils % 0.5 % (0-2.0) 11/29/19 07:58 Nucleated RBC % 0 % (0-0) 11/29/19 07:58 PT with INR 10.60 SEC (9.7-13.0) 11/27/19 18:10 INR 0.90 (0.83-1.09) 11/27/19 18:10 Sodium 141 mmol/L (136-145) 11/30/19 07:20 Potassium 3.8 mmol/L (3.5-5.1) 11/30/19 07:20 Chloride 105 mmol/L (98-107) 11/30/19 07:20 Carbon Dioxide 29 mmol/L (21-32) 11/30/19 07:20 Anion Gap 8 MMOL/L (8-16) 11/30/19 07:20 BUN 14.0 mg/dL (7-18) 11/30/19 07:20 Creatinine 0.9 mg/dL (0.55-1.3) 11/30/19 07:20 Est GFR (CKD-EPI)AfAm 81.11 11/30/19 07:20 Est GFR (CKD-EPI)NonAf 69.99 11/30/19 07:20 POC Glucometer 96 UNITS (80-120) 11/28/19 23:18 Random Glucose 89 mg/dL (74-106) 11/30/19 07:20 Calcium 8.6 mg/dL (8.5-10.1) 11/30/19 07:20 Phosphorus 4.1 mg/dL (2.5-4.9) 11/30/19 07:20 Magnesium 2.0 mg/dL (1.8-2.4) 11/30/19 07:20 Total Bilirubin 0.6 mg/dL (0.2-1) 11/30/19 07:20 AST 14 U/L (15-37) L 11/30/19 07:20 ALT 19 U/L (13-61) 11/30/19 07:20 Alkaline Phosphatase 80 U/L (45-117) 11/30/19 07:20 Total Protein 6.5 g/dl (6.4-8.2) 11/30/19 07:20 Albumin 3.5 g/dl (3.4-5.0) 11/30/19 07:20 Lipase 111 U/L (73-393) 11/27/19 18:10 Urine Color Yellow 11/27/19 18:18 Urine Appearance Clear 11/27/19 18:18 Urine pH 6.5 (5.0-8.0) 11/27/19 18:18 Ur Specific [place] 1.006 (1.010-1.035) L 11/27/19 18:18 Urine Protein Negative (NEGATIVE) 11/27/19 18:18 Urine Glucose (UA) Negative (NEGATIVE) 11/27/19 18:18 Urine Ketones Negative (NEGATIVE) 11/27/19 18:18 Urine Blood 3+ (NEGATIVE) H 11/27/19 18:18 Urine Nitrite Negative (NEGATIVE) 11/27/19 18:18 Urine Bilirubin Negative (NEGATIVE) 11/27/19 18:18 Urine Urobilinogen 0.2 mg/dL (0.2-1.0) 11/27/19 18:18 Ur Leukocyte Esterase 1+ (NEGATIVE) H 11/27/19 18:18 Urine WBC (Auto) 76 /uL (0-25.8) 11/27/19 18:18 Urine RBC (Auto) 111 /uL (0-23.9) 11/27/19 18:18 Urine Casts (Auto) 0 /uL (0-3.1) 11/27/19 18:18 U Epithel Cells (Auto) 14 /uL (0-25.1) 11/27/19 18:18 Urine Bacteria (Auto) 156 /uL (0-1359) 11/27/19 18:18 COVID-19 (GARRETT) Not detected (Not Detected) 11/28/19 00:00 Active Medications Albuterol Sulfate (Ventolin Hfa Inhaler -) 2 puff IH Q6H PRN PRN Reason: SHORT OF BREATH/WHEEZING Allopurinol (Zyloprim -) 100 mg PO DAILY [facility] Last Admin: 11/30/19 09:39 Dose: 100 mg Documented by: Amitriptyline HCl (Elavil -) 50 mg PO HS [facility] Last Admin: 11/29/19 21:32 Dose: 50 mg Documented by: Amlodipine Besylate (Norvasc -) 10 mg PO DAILY [facility] Last Admin: 11/30/19 09:39 Dose: 10 mg Documented by: Budesonide/Formoterol Fumarate (Symbicort 160/4.5mcg -) 2 puff IH BID [facility] Last Admin: 11/30/19 09:41 Dose: 2 puff Documented by: Colchicine (Colcrys) 0.6 mg PO DAILY [facility] Last Admin: 11/30/19 09:39 Dose: 0.6 mg Documented by: Enoxaparin Sodium (Lovenox -) 40 mg SQ DAILY [facility] Last Admin: 11/30/19 09:40 Dose: 40 mg Documented by: Gabapentin (Neurontin -) 300 mg PO HS [facility] Last Admin: 11/29/19 21:30 Dose: 300 mg Documented by: Metronidazole (Flagyl 500mg Premixed Ivpb -) 500 mg in 100 mls @ 100 mls/hr IVPB Q8H-IV KASSIE Last Admin: 11/30/19 09:37 Dose: 100 mls/hr Documented by: Ceftriaxone Sodium 2 gm/ (Dextrose) 50 mls @ 100 mls/hr IVPB DAILY [facility]; Protocol Last Admin: 11/30/19 11:17 Dose: 100 mls/hr Documented by: Sodium Chloride (Normal Saline -) 1,000 mls @ 75 mls/hr IV ASDIR [facility] Last Admin: 11/30/19 09:38 Dose: 75 mls/hr Documented by: Morphine Sulfate (Morphine Sulfate) 4 mg IVPUSH Q6H PRN PRN Reason: PAIN LEVEL 6-10 Last Admin: 11/30/19 02:37 Dose: 4 mg Documented by: Multivitamins/Minerals/Vitamin C (Tab-A-Vit -) 1 tab PO DAILY [facility] Last Admin: 11/30/19 09:39 Dose: 1 tab Documented by: Rosuvastatin Calcium (Crestor -) 10 mg PO HS [facility] Last Admin: 11/29/19 21:29 Dose: 10 mg Documented by: Tiotropium [place] (Spiriva Respimat) 2 puff IH DAILY [facility] Last Admin: 11/30/19 09:41 Dose: 2 puff Documented by: ASSESSMENT/PLAN: 59 y/o female PMH HTN, HLD, COPD, asthma, JACKELYN on CPAP at night, TIA, endometrial cancer, depression and COVID-19 presented to ED with abd pain. She is currently admitted for acute diverticulitis and UTI. Acute diverticulitis - CT A/P mild pericolonic edema is seen abutting the ventral border of the descending colon adjacent to the abdominal/pelvic junction. Omental infarction vs. acute diverticulitis. Several small adjacent diverticula are seen. - c/w ceftriaxone 2g qD and metronidazole 500mg q8H. Today is day 3. - GI and surgery consulted. - Will keep NPO for bowel rest - c/w IV hydration - No surgical intervention at this time. UTI -UA 3+ blood, 1+ leuk esterase, 76 WBC -Ucx positive for E. Coli. [place]-sensitive. -Bcx negative thus far -c/w ceftriaxone COPD -c/w tiotropium 2puff IH daily, budesonide/formoterol 2puff IH daily, albuterol 2puff q6H PRN -c/w CPAP at night HTN -c/w amlodipine 10mg qD -monitor BP DM -c/w gabapentin 300 qHS Hx TIA/stroke -c/w rosuvastatin 10mg qHS, lovenox 40mg qD Depression -c/w amitriptyline 50mg qHS Gout -c/w colchicine 0.6mg qD, allopurinol 100mg qD FEN - NS @ 75 - Replete electrolytes with goal of 4,3,2 for K,P,Mg, respectively. - NPO Ppx - DVT: Lovenox Dispo: -continue to monitor in Med/surg Visit type - Emergency Visit Emergency Visit: Yes ED Registration Date: 11/27/19 Care time: The patient presented to the Emergency Department on the above date and was hospitalized for further evaluation of their emergent condition. - New Patient This patient is new to me today: Yes Date on this admission: 11/30/19 - Critical Care Critical Care patient: No ATTENDING PHYSICIAN STATEMENT I saw and evaluated the patient. I reviewed the resident's note and discussed the case with the resident. I agree with the resident's findings and plan as documented. SUBJECTIVE: OBJECTIVE: ASSESSMENT AND PLAN:
[2019-11-30] MEDS ORDERED: DEXTROSE 5%-WATER - 50 ML IVPB ONE (11:14)
[2019-11-30] MEDS: CEFTRIAXONE 2 GM in DEXTROSE 5%-WATER - 50 ML IVPB SCH (11:17)
--- NOTE | 2019-11-30 18:25 | PN ---
Teaching Attending Note Name of Resident: Karuna Sharpe ATTENDING PHYSICIAN STATEMENT I saw and evaluated the patient. I reviewed the resident's note and discussed the case with the resident. I agree with the resident's findings and plan as documented. SUBJECTIVE: Patient is feeling better, asking when can she eat? OBJECTIVE: Vital Signs Temperature 98.4 F 11/30/19 16:15 Pulse Rate 88 11/30/19 16:15 Respiratory Rate 20 11/30/19 16:15 Blood Pressure 133/75 11/30/19 16:15 O2 Sat by Pulse Oximetry (%) 94 L 11/30/19 14:00 PE:per resident's note mild abdominal tenderness improving CBCD WBC 8.6 K/mm3 (4.0-10.0) 11/30/19 07:20 RBC 4.19 M/mm3 (3.60-5.2) 11/30/19 07:20 Hgb 12.6 GM/dL (10.7-15.3) 11/30/19 07:20 Hct 37.3 % (32.4-45.2) 11/30/19 07:20 MCV 89.0 fl (80-96) 11/30/19 07:20 MCHC 33.8 g/dl (32.0-36.0) 11/30/19 07:20 RDW 13.9 % (11.6-15.6) 11/30/19 07:20 Plt Count 262 K/MM3 (134-434) 11/30/19 07:20 MPV 8.6 fl (7.5-11.1) 11/30/19 07:20 CMP Sodium 141 mmol/L (136-145) 11/30/19 07:20 Potassium 3.8 mmol/L (3.5-5.1) 11/30/19 07:20 Chloride 105 mmol/L (98-107) 11/30/19 07:20 Carbon Dioxide 29 mmol/L (21-32) 11/30/19 07:20 Anion Gap 8 MMOL/L (8-16) 11/30/19 07:20 BUN 14.0 mg/dL (7-18) 11/30/19 07:20 Creatinine 0.9 mg/dL (0.55-1.3) 11/30/19 07:20 Random Glucose 89 mg/dL (74-106) 11/30/19 07:20 Calcium 8.6 mg/dL (8.5-10.1) 11/30/19 07:20 Total Bilirubin 0.6 mg/dL (0.2-1) 11/30/19 07:20 AST 14 U/L (15-37) L 11/30/19 07:20 ALT 19 U/L (13-61) 11/30/19 07:20 Alkaline Phosphatase 80 U/L (45-117) 11/30/19 07:20 Total Protein 6.5 g/dl (6.4-8.2) 11/30/19 07:20 Albumin 3.5 g/dl (3.4-5.0) 11/30/19 07:20 Current Medications Generic Name Dose Route Start Last Admin Trade Name Freq PRN Reason Stop Dose Admin Albuterol Sulfate 2 puff 11/27/19 23:51 Ventolin Hfa Inhaler - IH Q6H PRN SHORT OF BREATH/WHEEZING Allopurinol 100 mg 11/28/19 10:00 11/30/19 09:39 Zyloprim - PO 100 mg DAILY KASSIE Administration Amitriptyline HCl 50 mg 11/28/19 22:00 11/29/19 21:32 Elavil - PO 50 mg HS KASSIE Administration Amlodipine Besylate 10 mg 11/28/19 10:00 11/30/19 09:39 Norvasc - PO 10 mg DAILY KASSIE Administration Budesonide/Formoterol Fumarate 2 puff 11/28/19 10:00 11/30/19 09:41 Symbicort 160/4.5mcg - IH 2 puff BID KASSIE Administration Colchicine 0.6 mg 11/28/19 10:00 11/30/19 09:39 Colcrys PO 0.6 mg DAILY KASSIE Administration Enoxaparin Sodium 40 mg 11/28/19 10:00 11/30/19 09:40 Lovenox - SQ 40 mg DAILY KASSIE Administration Gabapentin 300 mg 11/28/19 22:00 11/29/19 21:30 Neurontin - PO 300 mg HS KASSIE Administration Metronidazole 500 mg in 100 mls @ 100 mls/hr 11/28/19 10:00 11/30/19 17:17 Flagyl 500mg Premixed Ivpb - IVPB 100 mls/hr Q8H-IV KASSIE Administration Ceftriaxone Sodium 2 gm/ 50 mls @ 100 mls/hr 11/29/19 10:00 11/30/19 11:17 Dextrose IVPB 100 mls/hr DAILY KASSIE Administration Protocol Sodium Chloride 1,000 mls @ 75 mls/hr 11/29/19 16:45 11/30/19 18:17 Normal Saline - IV Not Given ASDIR KASSIE Morphine Sulfate 4 mg 11/28/19 05:00 11/30/19 02:37 Morphine Sulfate IVPUSH 4 mg Q6H PRN Administration PAIN LEVEL 6-10 Multivitamins/Minerals/Vitamin C 1 tab 11/28/19 10:00 11/30/19 09:39 Tab-A-Vit - PO 1 tab DAILY KASSIE Administration Rosuvastatin Calcium 10 mg 11/28/19 22:00 11/29/19 21:29 Crestor - PO 10 mg HS KASSIE Administration Tiotropium [place] 2 puff 11/28/19 10:00 11/30/19 09:41 Spiriva Respimat IH 2 puff DAILY KASSIE Administration Home Medications Medication Instructions Recorded Salmeterol/Fluticasone [Advair 1 inh IH BID 12/24/12 500Mcg/50Mcg -] Tiotropium [place] [Spiriva] 1 inh PO DAILY 12/26/12 Amlodipine Besylate 10 mg PO DAILY 03/09/15 Amitriptyline HCl [Elavil -] 25 mg PO HS 01/26/18 Rosuvastatin [Crestor -] 20 mg PO DAILY 03/06/18 Allopurinol [Zyloprim -] 100 mg PO DAILY 01/23/19 Albuterol Sulfate [Proair Hfa] 1 puff IH PRN 11/27/19 Colchicine 0.6 mg PO DAILY 11/27/19 Gabapentin [Neurontin -] 300 mg PO HS PRN 11/27/19 Fluticasone Propion/Salmeterol 1 each IH BID 11/29/19 [Fluticasone-Salmeterol 500-50] Meloxicam 7.5 mg PO DAILY PRN 11/29/19 Mirabegron [Myrbetriq] 25 mg PO DAILY 11/29/19 Tiotropium [place] [Spiriva] 18 mcg IH DAILY 11/29/19 Microbiology 11/27/19 18:18 Urine - Urine Clean Catch Urine Culture - Final Escherichia Coli 11/28/19 00:00 Blood - Peripheral Venous Blood Culture - Preliminary NO GROWTH OBTAINED AFTER 48 HOURS, INCUBATION TO CONTINUE FOR 3 DAYS. 11/28/19 00:00 Blood - Peripheral Venous Blood Culture - Preliminary NO GROWTH OBTAINED AFTER 48 HOURS, INCUBATION TO CONTINUE FOR 3 DAYS. ASSESSMENT AND PLAN: This is a 59 y/o female with a significant medical history of TIAs (01/2019, 01/2018), Migraine Headaches, RLS, HTN, HLD, DM, COPD, Asthma, Endometrial Ca (s/p Total Hysterectomy, 12/2017) no chemo/RT, Gout, +COVID Infection (06/2019), Bacteremia. Who presents to the ED for evaluation of progressive generalized abdominal pain, left flank pain, and dysuria x2 days. #Acute Diverticulitis vs omental infarction : on IV rocephin/flagyl,continue, started on clears today, surgery and GI and surgery on case #Acute UTI; Ecoli, sensitive to everything, continue Rocephin #Abdominal pain: improving.continue to monitor # COPD : continue home meds # HTN : on Amlodipine continue #T2DM: SS with coverage #Hx TIA/stroke w/o resid #class 3 obesity (BMI >= 40):weight reduction and lifestyle modifications #covid is negative DVt px: SCds, lovenox
[2019-11-30] MEDS: ROSUVASTATIN CA 10 MG TABLET (FP) PO SCH (21:22)
[2019-11-30] MEDS: AMITRIPTYLINE HCL 25 MG TABLET PO SCH (21:22)
[2019-11-30] MEDS: GABAPENTIN 300 MG CAPSULE PO SCH (21:22)
[2019-12-01] MEDS: SODIUM CHLORIDE 1,000 ML IV SCH (01:40)
[2019-12-01 08:34] LABS: BLOOD UREA NITROGEN 9.6 mg/dL (7-18); CALCIUM 8.4 mg/dL (8.5-10.1); CREATININE 0.7 mg/dL (0.55-1.3)
[2019-12-01 08:38] LABS: POTASSIUM 3.5 mmol/L (3.5-5.1)
[2019-12-01] MEDS: ENOXAPARIN NA (PORCINE) 40 MG/0.4 ML DISP.SYRIN SQ SCH (09:50)
[2019-12-01] MEDS: COLCHICINE 0.6 MG CAP PO SCH (09:50)
[2019-12-01] MEDS: amLODIPine BESYLATE 5 MG TABLET (FP) PO SCH (09:51)
[2019-12-01] MEDS: ALLOPURINOL 100 MG TABLET (FP) PO SCH (09:51)
[2019-12-01] MEDS: MULTIVITAMINS (DAILY MVI) TABLET (FP) PO SCH (09:51)
[2019-12-01] MEDS: TIOTROPIUM BROMIDE 2.5 MCG (SPIRIVA) RESPIMAT INHALER IH SCH (10:00)
[2019-12-01] MEDS: BUDESONIDE/FORMETEROL FUMARATE 160/4.5 mcg INHALER IH SCH (10:00)
[2019-12-01] MEDS ORDERED: DEXTROSE 5%-WATER - 50 ML IVPB ONE (11:16)
[2019-12-01] MEDS: CEFTRIAXONE 2 GM in DEXTROSE 5%-WATER - 50 ML IVPB SCH (11:19)
[2019-12-01 14:01] VITALS: BP 148/90; PULSE 75; TEMP 97.8
--- NOTE | 2019-12-01 16:34 | PN ---
Teaching Attending Note Name of Resident: Karuna Sharpe ATTENDING PHYSICIAN STATEMENT I saw and evaluated the patient. I reviewed the resident's note and discussed the case with the resident. I agree with the resident's findings and plan as documented. SUBJECTIVE: Patient says pain has improved. She is tolerating clear liquids. OBJECTIVE: Vital Signs Period Temp Pulse Resp BP Sys/Rodgers Pulse Ox Last 24 Hr 97.6 F-98 F 64-87 20-20 120-148/72-90 93-97 HEART: S1S2, RRR LUNGS: Clear ABDOMEN: Obese, soft, non-tender, non-distended, normal BS EXTREMITIES: No edema Laboratory Results - last 24 hr 12/01/19 07:20 Sodium 142 Potassium 3.5 Chloride 108 H Carbon Dioxide 25 Anion Gap 10 BUN 9.6 Creatinine 0.7 Est GFR (CKD-EPI)AfAm 109.91 Est GFR (CKD-EPI)NonAf 94.84 Random Glucose 100 Calcium 8.4 L Current Medications Generic Name Dose Route Start Last Admin Trade Name Freq PRN Reason Stop Dose Admin Albuterol Sulfate 2 puff 11/27/19 23:51 Ventolin Hfa Inhaler - IH Q6H PRN SHORT OF BREATH/WHEEZING Allopurinol 100 mg 11/28/19 10:00 12/01/19 09:51 Zyloprim - PO 100 mg DAILY KASSIE Administration Amitriptyline HCl 50 mg 11/28/19 22:00 11/30/19 21:22 Elavil - PO 50 mg HS KASSIE Administration Amlodipine Besylate 10 mg 11/28/19 10:00 12/01/19 09:51 Norvasc - PO 10 mg DAILY KASSIE Administration Budesonide/Formoterol Fumarate 2 puff 11/28/19 10:00 12/01/19 10:00 Symbicort 160/4.5mcg - IH 2 puff BID KASSIE Administration Colchicine 0.6 mg 11/28/19 10:00 12/01/19 09:50 Colcrys PO 0.6 mg DAILY KASSIE Administration Enoxaparin Sodium 40 mg 11/28/19 10:00 12/01/19 09:50 Lovenox - SQ 40 mg DAILY KASSIE Administration Gabapentin 300 mg 11/28/19 22:00 11/30/19 21:22 Neurontin - PO 300 mg HS KASSIE Administration Metronidazole 500 mg in 100 mls @ 100 mls/hr 11/28/19 10:00 12/01/19 09:51 Flagyl 500mg Premixed Ivpb - IVPB 100 mls/hr Q8H-IV KASSIE Administration Ceftriaxone Sodium 2 gm/ 50 mls @ 100 mls/hr 11/29/19 10:00 12/01/19 11:19 Dextrose IVPB 100 mls/hr DAILY KASSIE Administration Protocol Sodium Chloride 1,000 mls @ 75 mls/hr 11/29/19 16:45 12/01/19 01:40 Normal Saline - IV 75 mls/hr ASDIR KASSIE Administration Multivitamins/Minerals/Vitamin C 1 tab 11/28/19 10:00 12/01/19 09:51 Tab-A-Vit - PO 1 tab DAILY KASSIE Administration Rosuvastatin Calcium 10 mg 11/28/19 22:00 11/30/19 21:22 Crestor - PO 10 mg HS KASSIE Administration Tiotropium [place] 2 puff 11/28/19 10:00 12/01/19 10:00 Spiriva Respimat IH 2 puff DAILY KASSIE Administration ASSESSMENT AND PLAN: This is a 59 year old woman with a history of HTN, hyperlipidemia, TIAs, type 2 DM, asthma/COPD, migraine headaches, RLS, endometrial cancer, hysterectomy, gout, COVID who presented to the ED with abdominal pain, left flank pain, and dysuria. 1. Sepsis secondary to acute diverticulitis and E. coli UTI - Clinically improving - Advance diet - Continue ceftriaxone, metronidazole - If tolerates diet, can discharge home 2. Morbid obesity with BMI 48.3
--- NOTE | 2019-12-01 16:37 | DS ---
Physical Exam: SUBJECTIVE: Patient seen and examined. Stated that pain improved. Upon my evaluation, rated 0/10. Yesterday, advanced to clear liquid diet. Stated that she tolerated it well w/o N/V. Had 4 BM overnight that was soft in consistency at first, then watery. Denied fevers, chills, SOB, c/p, abdominal pain, N/V/D. OBJECTIVE: Vital Signs Period Temp Pulse Resp BP Sys/Rodgers Pulse Ox Last 24 Hr 97.6 F-98 F 64-87 20-20 120-148/72-90 93-97 PHYSICAL EXAM GENERAL: Awake and alert. Not in acute distress. HEENT: NCAT, EOMI. On CPAP. Moist mucus membranes. CARDIAC: RRR, S1, S2 present. No murmurs RESPIRATORY: CTA b/l, no wheezes ABDOMEN: Obese, soft, non-distended. Normoactive bowel sounds. Improved tenderness to palpation on LUQ. EXTREMITIES: Warm, well-perfused. No edema SKIN: Warm, dry LABS Laboratory Last Values WBC 8.6 K/mm3 (4.0-10.0) 11/30/19 07:20 RBC 4.19 M/mm3 (3.60-5.2) 11/30/19 07:20 Hgb 12.6 GM/dL (10.7-15.3) 11/30/19 07:20 Hct 37.3 % (32.4-45.2) 11/30/19 07:20 MCV 89.0 fl (80-96) 11/30/19 07:20 MCH 30.1 pg (25.7-33.7) 11/30/19 07:20 MCHC 33.8 g/dl (32.0-36.0) 11/30/19 07:20 RDW 13.9 % (11.6-15.6) 11/30/19 07:20 Plt Count 262 K/MM3 (134-434) 11/30/19 07:20 MPV 8.6 fl (7.5-11.1) 11/30/19 07:20 Absolute Neuts (auto) 5.3 K/mm3 (1.5-8.0) 11/29/19 07:58 Neutrophils % 63.5 % (42.8-82.8) 11/29/19 07:58 Lymphocytes % 24.1 % (8-40) 11/29/19 07:58 Monocytes % 8.7 % (3.8-10.2) 11/29/19 07:58 Eosinophils % 3.2 % (0-4.5) 11/29/19 07:58 Basophils % 0.5 % (0-2.0) 11/29/19 07:58 Nucleated RBC % 0 % (0-0) 11/29/19 07:58 PT with INR 10.60 SEC (9.7-13.0) 11/27/19 18:10 INR 0.90 (0.83-1.09) 11/27/19 18:10 Sodium 142 mmol/L (136-145) 12/01/19 07:20 Potassium 3.5 mmol/L (3.5-5.1) 12/01/19 07:20 Chloride 108 mmol/L (98-107) H 12/01/19 07:20 Carbon Dioxide 25 mmol/L (21-32) 12/01/19 07:20 Anion Gap 10 MMOL/L (8-16) 12/01/19 07:20 BUN 9.6 mg/dL (7-18) 12/01/19 07:20 Creatinine 0.7 mg/dL (0.55-1.3) 12/01/19 07:20 Est GFR (CKD-EPI)AfAm 109.91 12/01/19 07:20 Est GFR (CKD-EPI)NonAf 94.84 12/01/19 07:20 POC Glucometer 96 UNITS (80-120) 11/28/19 23:18 Random Glucose 100 mg/dL (74-106) 12/01/19 07:20 Calcium 8.4 mg/dL (8.5-10.1) L 12/01/19 07:20 Phosphorus 4.1 mg/dL (2.5-4.9) 11/30/19 07:20 Magnesium 2.0 mg/dL (1.8-2.4) 11/30/19 07:20 Total Bilirubin 0.6 mg/dL (0.2-1) 11/30/19 07:20 AST 14 U/L (15-37) L 11/30/19 07:20 ALT 19 U/L (13-61) 11/30/19 07:20 Alkaline Phosphatase 80 U/L (45-117) 11/30/19 07:20 Total Protein 6.5 g/dl (6.4-8.2) 11/30/19 07:20 Albumin 3.5 g/dl (3.4-5.0) 11/30/19 07:20 Lipase 111 U/L (73-393) 11/27/19 18:10 Urine Color Yellow 11/27/19 18:18 Urine Appearance Clear 11/27/19 18:18 Urine pH 6.5 (5.0-8.0) 11/27/19 18:18 Ur Specific [place] 1.006 (1.010-1.035) L 11/27/19 18:18 Urine Protein Negative (NEGATIVE) 11/27/19 18:18 Urine Glucose (UA) Negative (NEGATIVE) 11/27/19 18:18 Urine Ketones Negative (NEGATIVE) 11/27/19 18:18 Urine Blood 3+ (NEGATIVE) H 11/27/19 18:18 Urine Nitrite Negative (NEGATIVE) 11/27/19 18:18 Urine Bilirubin Negative (NEGATIVE) 11/27/19 18:18 Urine Urobilinogen 0.2 mg/dL (0.2-1.0) 11/27/19 18:18 Ur Leukocyte Esterase 1+ (NEGATIVE) H 11/27/19 18:18 Urine WBC (Auto) 76 /uL (0-25.8) 11/27/19 18:18 Urine RBC (Auto) 111 /uL (0-23.9) 11/27/19 18:18 Urine Casts (Auto) 0 /uL (0-3.1) 11/27/19 18:18 U Epithel Cells (Auto) 14 /uL (0-25.1) 11/27/19 18:18 Urine Bacteria (Auto) 156 /uL (0-1359) 11/27/19 18:18 COVID-19 (GARRETT) Not detected (Not Detected) 11/28/19 00:00 HOSPITAL COURSE: 59 y/o female PMH HTN, HLD, COPD, asthma, JACKELYN on CPAP at night, TIA, endometrial cancer, depression and COVID-19 in 06/2019 presented to ED with generalized abd pain, L flank pain and dysuria for [address] A/P done in October at [facility] was positive for hernia and PCP was concern for incarceration and sent pt to ED. CT A/P on admission was suspicious for omental infarction vs. acute diverticulitis. She was admitted for acute diverticulitis and UTI. GI and surgery were consulted. No surgical intervention was indicated at this time. Pt was kept NPO for bowel rest, given IV hydration, ceftriaxone and metronidazole. Pt's symptoms resolved and was able to tolerate a soft diet. Pt is hemodynamically stable and medically optimized for discharge to her home. Pt is to complete her course of antibiotics (Augmentin) for 3 days and will follow up with her PCP and specialists as explained in her discharged plan. Date of Admission:11/27/19 Date of Discharge: 12/01/19 Minutes to complete discharge: 36 Discharge Summary Problems reviewed: Yes Reason For Visit: DIVERTICULILTIS Current Active Problems Diabetes (Chronic) Severe obesity (BMI >= 40) (Chronic) Condition: Improved - Instructions Diet, Activity, Other Instructions: Your visit: You were admitted to the hospital for abdominal pain and pain on urination. We did imaging of your abdomen and pelvis. You were found to have inflammation of your colon. You were also found to have a urinary tract infection. You were treated with antibiotics, IV fluids and bowel rest with improvement of your symptoms. Due to your pain improving, we advanced your diet to soft food. You may continue to advance your diet as you tolerate it. Additional image findings: During your imaging of your abdomen and pelvis, you were found to have a hernia that contains fat. You were also found to have stable cysts in your liver. You may follow up on these additional findings with your primary care doctor. Medications changes: -Please continue to take Augmentin 875mg/125mg, an antibiotic, 1 pill by mouth every 12 hours with food for 3 days. Your next dose is tomorrow, 12/02/2019. -Continue to take all other home medications as prescribed. Follow up: - Please follow-up with your information strategist, Dr. Nunez, in 1 week. - Please follow up with your surgeon, Dr. Griffiths, in 1 week. - Visit with your Primary Care Provider, Dr. العلي, in 2 weeks. Additional Instructions: -You are being discharged to your home. -Please return to the Emergency Department if you experience worsening pain, fevers, chills, shortness of breath, or chest pain, or if you experience any worsening, new or concerning symptoms. Referrals: Jason Nunez DO [Staff Physician] - 1 Week Khadar Griffiths MD [Staff Physician] - 1 Week Radhika العلي MD [Non Staff, Medical] - 2 Weeks Disposition: HOME - Home Medications Comprehensive Discharge Medication List: Ambulatory Orders Amlodipine Besylate 10 mg PO DAILY 03/09/15 Amitriptyline HCl [Elavil -] 25 mg PO HS 01/26/18 Rosuvastatin [Crestor -] 20 mg PO DAILY 03/06/18 Allopurinol [Zyloprim -] 100 mg PO DAILY 01/23/19 Albuterol Sulfate [Proair Hfa] 1 puff IH PRN 11/27/19 Colchicine 0.6 mg PO DAILY 11/27/19 Gabapentin [Neurontin -] 300 mg PO HS PRN 11/27/19 Fluticasone Propion/Salmeterol [Fluticasone-Salmeterol 500-50] 1 each IH BID 11/29/19 Meloxicam 7.5 mg PO DAILY PRN 11/29/19 Mirabegron [Myrbetriq] 25 mg PO DAILY 11/29/19 Tiotropium [place] [Spiriva] 18 mcg IH DAILY 11/29/19 Amoxicillin/Potassium Clav [Augmentin 875-125 Tablet] 1 each PO Q12H 3 Days #6 tablet 12/01/19 This patient is new to me today: No Emergency Visit: Yes ED Registration Date: 11/27/19 Care time: The patient presented to the Emergency Department on the above date and was hospitalized for further evaluation of their emergent condition. Critical Care patient: No - Discharge Referral Referred to [facility] Med P.C.: No ATTENDING PHYSICIAN STATEMENT I saw and evaluated the patient. I reviewed the resident's note and discussed the case with the resident. I agree with the resident's findings and plan as documented. SUBJECTIVE: OBJECTIVE: ASSESSMENT AND PLAN:
--- NOTE | 2019-12-01 17:05 | PN ---
Progress Note (short form) - Note Progress Note: Patient has no LLQ pain and tolerating diet Afebrile, VSS Abd: soft, mild LLQ deep tenderness A/P resolving diverticulitis D/C planning Problem List - Problems (1) Diverticulitis Code(s): K57.92 - DVTRCLI OF INTEST, PART UNSP, W/O PERF OR ABSCESS W/O BLEED
== END 2019-12-01 18:21 | disposition home or self-care (01) | DRG 690 ==
LOC: JER 17:14 → JERFT 17:14 → JERBED 23:53 → J8W 11-28 18:28
PROVIDERS: ADMIT Internal Medicine; ATTEND Internal Medicine
DX: N39.0 Urinary tract infection, site not specified (principal); K57.92 Diverticulitis of intestine, part unspecified, without perforation or abscess without bleeding; Z68.42 Body mass index [BMI] 45.0-49.9, adult; J44.9 Chronic obstructive pulmonary disease, unspecified; R21 Rash and other nonspecific skin eruption; I10 Essential (primary) hypertension; E11.9 Type 2 diabetes mellitus without complications; E66.01 Morbid (severe) obesity due to excess calories; E78.5 Hyperlipidemia, unspecified; G47.33 Obstructive sleep apnea (adult) (pediatric); B96.20 Unspecified Escherichia coli [E. coli] as the cause of diseases classified elsewhere; M10.9 Gout, unspecified; F32.9 Major depressive disorder, single episode, unspecified
CPT/HCPCS: 36415; 71045-TC-FY; 74177-TC; 80048; 80053; 81003; 82962; 83690; 83735; 84100; 85025; 85027; 85610; 87040; 87086; 87186; 93005; 93010; 94660; 99285-25; J0131; Q9967; U0003

== ENCOUNTER 2023-11-28 12:25 | Emergency (ER) | payer OTHER ==
[2023-11-28 12:36] VITALS: BP 148/76; PULSE 95; RESP 18; TEMP 98.4; BMI 49.0
[2023-11-28 16:16] LABS: HIV INTERPRETATION NEGATIVE (NEGATIVE)
== END 2023-11-28 15:15 | disposition home or self-care (01) ==
LOC: JER 12:25
DX: R21 Rash and other nonspecific skin eruption (principal)
CPT/HCPCS: 36415; 86803; 87389; 99283-25